=== PATIENT | male | born 1945 | race Caucasian/White ===

== ENCOUNTER 2017-06-15 17:29 | Observation (INO) ==
[2017-06-15 17:58] LABS: Bilirubin,Urine Negative (Negative); Blood,Urine Moderate (Negative); Clarity,Urine Clear (Clear); Glucose,Urine (UA) Normal (Normal); Ketones,Urine Negative (Negative); Leukocyte Esterase,Urine Small (Negative); Nitrite,Urine Negative (Negative); Protein,Urine 100 mg/dL (Neg-Trace); Specific Gravity,Urine 1.015 (1.010-1.025); Urobilinogen,Urine Normal (Normal)
[2017-06-15 18:01] LABS: Color,Urine Dark Yellow (Yellow)
--- NOTE | 2017-06-15 18:20 | Emergency Department Note ---
Disposition Clinical Impression: Urinary tract infection Disposition: Admitted As Inpatient Condition: Fair Time of Disposition: 19:26 ([facility]) Male Urogenital HPI - General Chief complaint: ED Urogenital-Male Stated complaint: trouble with urination, dribbling Time Seen by Provider: 06/15/17 17:45 Source: patient Mode of arrival: ambulatory Limitations: no limitations Nursing Notes Reviewed: Yes Vital Signs Reviewed: Yes - History of Present Illness HPI Narrative: 72-year-old male presents to the emergency room had seen his family physician who told him that he has trouble urinating was due to his weight patient states that he has had increased swelling in his legs he has recently been diagnosed with infection in his foot with possible osteomyelitis in the foot patient who presents to the ER he had been currently been treated for antibodies but apparently ended up with C. difficile is family doctor told him not to go the ER patient that was uncomfortable came to the ER states this weakness tiredness having trouble urinating states he 3 days ago was split streaming now he is down to just dribbles he denies fever chills lightheadedness dizziness just states he feels lousy cannot explain to what is going on patient presents here to the ER at this time Pt Subjective Complaint: other (Suprapubic pain) Onset (ago): day(s) Duration: constant, gradually worsening Radiation: abdomen Severity: severe Severity scale (1-10): 10 Quality: aching Improves with: none Worsens with: urination, movement Reports: urinary retention, dysuria, fever (?), incontinence. Denies: hematuria - Related Data Home Medications Medication Instructions Recorded Confirmed Allopurinol [Zyloprim] 300 mg PO DAILY 06/10/15 06/15/17 Cholecalciferol (Vitamin D3) 2,000 unit PO DAILY 06/10/15 06/15/17 [Vitamin D] GlipiZIDE [Glucotrol] 2.5 mg PO BID 06/10/15 06/15/17 Lovastatin [Mevacor] 20 mg PO DAILY 06/10/15 06/15/17 Warfarin [Coumadin] 2.5 mg PO DAILY 06/10/15 06/15/17 Clopidogrel [Plavix] 75 mg PO DAILY 06/16/15 06/15/17 Carvedilol [Coreg] 25 mg PO DAILY 01/03/16 06/15/17 Insulin Aspart Prot/Insuln Asp 50 unit SQ BID 01/30/17 06/15/17 [Novolog Mix 70-30 Vial] Furosemide [Lasix] 40 mg PO DAILY 06/15/17 06/15/17 Lactobacillus [Culturelle] 1 each PO DAILY 06/15/17 06/15/17 Tamsulosin [Flomax] 0.4 mg PO DAILY 06/15/17 06/15/17 Allergies Allergy/AdvReac Type Severity Reaction Status Date / Time ciprofloxacin [From Cipro] Allergy Itching Verified 06/15/17 17:30 All systems ED: reviewed and negative except as stated. Review of Systems: As Per HPI Constitutional: Reports: fever, chills, weakness Eyes: Denies: eye pain, eye discharge ENT ED: Denies: ear pain, throat pain Cardiovascular: Denies: chest pain, palpitations Respiratory: Denies: cough, dyspnea, wheezes Gastrointestinal: Reports: abdominal pain, nausea. Denies: vomiting Genitourinary: Reports: urgency, dysuria, frequency, hematuria Musculoskeletal: Denies: back pain, neck pain Integumentary: Denies: rash, abrasion Neurological: Denies: headache Psychiatric: Denies: anxiety Endocrine: Denies: fatigue Hematological/Lymphatic: Denies: easy bleeding Allergic/Immunologic: Denies: facial swelling Past Medical History - Past Medical History Attestation: Yes The following information was validated with the patient. Source: patient, old records reviewed, obtained from family, nursing notes reviewed Medical history: Reports: diabetes, hyperlipidemia, hypertension, myocardial infarction, other Psychiatric history: Reports: depression - Social History Smoking Status: Former smoker Smokeless Tobacco Status: No Alcohol use: Reports: none Drug use: Reports: none Physical Exam - General Limitations: no limitations General appearance: alert, in no apparent distress, anxious, obese - Head Head exam: atraumatic, normocephalic, normal inspection - Eye Eye exam: Present: normal appearance, PERRL, EOMI - ENT ENT exam: normal exam, normal oropharynx, mucous membranes moist, normal external ear exam - Neck Neck exam: Present: normal inspection, full ROM, trachea midline - Chest Chest inspection: Present: normal inspection, symmetric chest wall rise - Respiratory Respiratory exam: Present: normal lung sounds bilaterally - Cardiovascular Cardiovascular exam: Present: regular rate, normal rhythm, normal heart sounds - Abdominal Exam Abdominal Exam: Present: soft, tenderness, normal bowel sounds. Absent: mass, pulsatile mass Abdominal Tenderness: Present: suprapubic, moderate - Extremities Exam Extremities exam: Present: normal inspection, full ROM - Expanded Upper Extremity Exam Shoulder exam: Present: normal inspection, full ROM Arm exam: Present: normal inspection, full ROM Elbow exam: Present: normal inspection, full ROM Forearm/Wrist exam: Present: normal inspection, full ROM Hand exam: Present: normal inspection, full ROM Neurosensory exam: Normal: radial nerve, ulnar nerve, median nerve Vascular exam: Normal: capillary refill, radial pulse, ulnar pulse - Expanded Lower Extremity Exam Hip/Pelvis exam: Present: normal inspection, full ROM Upper leg exam: Present: normal inspection, full ROM Knee exam: Present: normal inspection, full ROM Lower leg exam: Present: normal inspection, full ROM, other (Hemosiderin staining bilateral lower extremities antigen dressing noted on the left foot and ankle for a infected toe) Ankle exam: Present: normal inspection, full ROM Foot/toe exam: Present: normal inspection, full ROM Neurovascular/Tendon exam: Present: normal capillary refill, normal fine/light touch Gait: observed and normal - Neurological Exam Neurological exam: Present: alert, oriented X3, CN II-XII intact - Psychiatric Psychiatric exam: Present: normal affect, normal mood - Skin Skin exam: Present: warm, dry, intact, normal color Course Course Narrative: -year-old male who presents to the emergency room had been seen by the family physician appears to be in some discomfort patient was given a bladder scan which showed that there was minimal resident do present within the bladder Arce catheter was placed initially by nursing staff as some difficulty urinating around the catheter but I was able to slip a 16-gauge Arce catheter into the bladder with minimal difficulty hematuric urine came back still did have some bladder spasms he was given morphine and Zofran for pain based though on the findings of the labs it appeared that he was meeting criteria for sepsis as a result he was given fluid boluses which did show he had improvement of his fluid status with tachycardia improving blood pressure and respiratory rate remaining stable heart lungs heart was very improved to regular rate lungs were clear without rales or rhonchi A gradient brisk cap refill peripheral pulses were strong and the skin color had remained stable as result I spoke with Dr. Lam he has agreed for admission patient transferred to [facility] stable Vital Signs Temperature 100.1 F H 06/15/17 17:36 Pulse Rate 90 06/15/17 17:36 Respiratory Rate 18 06/15/17 17:36 Blood Pressure 142/90 06/15/17 17:36 O2 Sat by Pulse Oximetry 96 06/15/17 17:36 Temperature 98.9 F 06/15/17 20:44 Pulse Rate 90 06/15/17 20:04 Respiratory Rate 20 06/15/17 20:44 Blood Pressure 150/74 06/15/17 20:44 O2 Sat by Pulse Oximetry 93 06/15/17 20:04 Oxygen Delivery Oxygen Delivery Room Air Urogenital-Male - Differential Diagnosis Likely: urinary tract infection - Lab Data Result diagrams: 06/15/17 18:33 06/15/17 18:33 Lab Results 06/15/17 06/15/17 06/15/17 Range/Units 17:45 18:33 18:33 WBC 19.0 H (4.3-11.1) K/mcL RBC 5.43 (4.19-5.50) M/mcL Hgb 17.0 H (12.9-16.9) g/dL Hct 50.1 (37.5-50.1) % MCV 92.3 (83.0-100.0) fL MCH 31.3 (28.0-33.3) pg MCHC 33.9 (31.6-35.5) g/dL RDW 15.9 H (11.5-14.5) % Plt Count 209 (140-400) K/mcL MPV 10.1 (9.4-12.4) fL Immature Gran % 0.9 (0-4) % Seg Neutrophils % 79.4 % Lymphocytes % 12.4 % Monocytes % 6.7 % Eosinophils % 0.2 % Basophils % 0.4 % Neutrophils # 15.1 H (1.6-8.9) K/mcL Lymphocytes # 2.4 (0.6-4.6) K/mcL Monocytes # 1.3 (0.0-1.3) K/mcL Eosinophils # 0.0 (0.0-0.6) K/mcL Basophils # 0.1 (0.0-0.2) K/mcL Sodium 135 L (136-145) mEq/L Potassium 4.7 H (3.5-4.5) mEq/L Chloride 105 (98-109) mEq/L Carbon Dioxide 23 (19-29) mEq/L BUN 30 H (8-26) mg/dL Creatinine 1.73 H (0.72-1.25) mg/dL Est GFR ( Amer) 48 L (> 60) Est GFR (Non-Af Amer) 39 L (> 60) BUN/Creatinine Ratio 17 (6-26) Glucose 121 H (70-99) mg/dL Calculated Osmolality 287 (280-300) Lactic Acid (0.5-2.2) mmol/L Calcium 9.1 (8.6-10.8) mg/dL Urine Color Dark Yellow (Yellow) Urine Clarity Clear (Clear) Urine pH 7.0 (5.0-8.0) pH Units Ur Specific [place] 1.015 (1.010-1.025) Urine Protein 100 H (Neg-Trace) mg/dL Urine Glucose (UA) Normal (Normal) mg/dL Urine Ketones Negative (Negative) mg/dL Urine Blood Moderate H (Negative) Urine Nitrite Negative (Negative) Urine Bilirubin Negative (Negative) Urine Urobilinogen Normal (Normal) mg/dL Ur Leukocyte Esterase Small H (Negative) Urine Microscopic RBC 5-15 H (0-3) per hpf Urine Microscopic WBC 15-30 H (0-3) per hpf Ur Squamous Epith Cells Few (None-Few) per lpf Urine Bacteria Few (None-Few) per hpf Ur Culture Indicated? YES A (NO) 06/15/17 Range/Units 19:48 WBC (4.3-11.1) K/mcL RBC (4.19-5.50) M/mcL Hgb (12.9-16.9) g/dL Hct (37.5-50.1) % MCV (83.0-100.0) fL MCH (28.0-33.3) pg MCHC (31.6-35.5) g/dL RDW (11.5-14.5) % Plt Count (140-400) K/mcL MPV (9.4-12.4) fL Immature Gran % (0-4) % Seg Neutrophils % % Lymphocytes % % Monocytes % % Eosinophils % % Basophils % % Neutrophils # (1.6-8.9) K/mcL Lymphocytes # (0.6-4.6) K/mcL Monocytes # (0.0-1.3) K/mcL Eosinophils # (0.0-0.6) K/mcL Basophils # (0.0-0.2) K/mcL Sodium (136-145) mEq/L Potassium (3.5-4.5) mEq/L Chloride (98-109) mEq/L Carbon Dioxide (19-29) mEq/L BUN (8-26) mg/dL Creatinine (0.72-1.25) mg/dL Est GFR ( Amer) (> 60) Est GFR (Non-Af Amer) (> 60) BUN/Creatinine Ratio (6-26) Glucose (70-99) mg/dL Calculated Osmolality (280-300) Lactic Acid 1.3 (0.5-2.2) mmol/L Calcium (8.6-10.8) mg/dL Urine Color (Yellow) Urine Clarity (Clear) Urine pH (5.0-8.0) pH Units Ur Specific [place] (1.010-1.025) Urine Protein (Neg-Trace) mg/dL Urine Glucose (UA) (Normal) mg/dL Urine Ketones (Negative) mg/dL Urine Blood (Negative) Urine Nitrite (Negative) Urine Bilirubin (Negative) Urine Urobilinogen (Normal) mg/dL Ur Leukocyte Esterase (Negative) Urine Microscopic RBC (0-3) per hpf Urine Microscopic WBC (0-3) per hpf Ur Squamous Epith Cells (None-Few) per lpf Urine Bacteria (None-Few) per hpf Ur Culture Indicated? (NO) Critical Care Time Critical Care Time: Yes Total Critical Care Time: 35 Attestation: Critical care performed: 35 minutes patient presents with signs and symptoms of sepsis with tachycardia and hypotension worsening of renal function laboratory data shows leukocytosis he is at risk for C. difficile has a recent antibiotics recent infection as result patient will be admitted transferred services Dr. Genaro Li patient will receive oxide 4000 Ml of fluid he will be monitored closely and make sure that he does not have fluid overload Post first liter of fluid patient started showing improvement of his color heart rate improving slowing down blood pressures remained stable patient has strong pulses lungs and heart are still clear to all station regular rate and rhythm capillary refills brisk no loss of peripheral pulses bilaterally symmetrical [place] in the upper extremity is slight weakness in the lower extremities but this is unchanged from prior due to history of vascular disease skin exam is unchanged the patient is not diaphoretic Time is exclusive of separately billable procedures. Time includes: direct patient care, patient reassessment, coordination of patient care, interpretation of data (laboratory data, radiology data, and respiratory data), review of patient's medical records, medical consultation and documentation of patient care. Procedures included in critical care time: Procedures excluded from critical care time:
[2017-06-15 18:22] LABS: Bacteria,Urine Few per hpf (None-Few); Squamous Epithelial Cell,Urine Few per lpf (None-Few); WBC,Urine 15-30 per hpf (0-3)
[2017-06-15 18:41] LABS: Basophils # 0.1 K/mcL (0.0-0.2); Basophils % 0.4 %; Eosinophils % 0.2 %; Hematocrit 50.1 % (37.5-50.1); Immature Granulocytes % 0.9 % (0-4); Lymphocytes # 2.4 K/mcL (0.6-4.6); Lymphocytes % 12.4 %; Mean Corpuscular HGB Conc 33.9 g/dL (31.6-35.5); Mean Corpuscular Hemoglobin 31.3 pg (28.0-33.3); Mean Corpuscular Volume 92.3 fL (83.0-100.0); Mean Platelet Volume 10.1 fL (9.4-12.4); Monocytes # 1.3 K/mcL (0.0-1.3); Monocytes % 6.7 %; Neutrophils # 15.1 K/mcL (1.6-8.9); Platelet Count 209 K/mcL (140-400); Red Blood Count 5.43 M/mcL (4.19-5.50); Red Cell Distribution Width 15.9 % (11.5-14.5); Segmented Neutrophils % 79.4 %
[2017-06-15 18:55] LABS: Calcium 9.1 mg/dL (8.6-10.8); Potassium 4.7 mEq/L (3.5-4.5)
[2017-06-15] MEDS ORDERED: 0.9 % Sodium Chloride 1,000 ML IVC ONE (18:56)
[2017-06-15] MEDS ORDERED: GENTAMICIN IVPB ONE ×2 (18:56→21:30)
[2017-06-15] MEDS ORDERED: SODIUM CHLORIDE 0.9% IVPB ONE (18:56)
[2017-06-15] MEDS ORDERED: MetroNIDAZOLE 500 MG/100 ML 500 MG/100 ML BAG IVPB ONE ×2 (19:09→21:30)
[2017-06-15] MEDS ORDERED: Ondansetron 4 MG/2 ML VIAL IVP ONE (19:26)
[2017-06-15] MEDS ORDERED: *HR* Morphine 2 MG/ML SYRINGE IVP ONE (19:26)
[2017-06-15] MEDS ORDERED: Aminoglycoside Consult 1 EACH MC ONE (20:37)
[2017-06-15] MEDS ORDERED: D5% in Water 1,000 ML IVC PRN (21:30)
[2017-06-15] MEDS ORDERED: INSULIN ASPART PROT SQ SCH (21:30)
[2017-06-15] MEDS ORDERED: Naloxone 0.4 MG/ML INJ IVP PRN (21:30)
[2017-06-15] MEDS ORDERED: Gentamicin 500 MG in 0.9 % Sodium Chloride 100 ML IVPB SCH (21:30)
[2017-06-15] MEDS ORDERED: *HR* Dextrose 50 % in Water (Syg) 50 ML SYRINGE IVP PRN (21:30)
[2017-06-15] MEDS ORDERED: INSULN ASP SQ SCH (21:30)
[2017-06-15] MEDS ORDERED: Dextrose Gel 15 GM PO PRN ×2 (21:30)
[2017-06-15 21:43] LABS: Activated Partial Thrombo Time 36.1 Seconds (26.0-36.0)
[2017-06-16] MEDS: *HR* GlipiZIDE 5 MG TABLET PO SCH ×3 (00:20→20:18)
[2017-06-16] MEDS: Gentamicin 100 MG in 0.9 % Sodium Chloride 100 ML IVPB SCH ×2 (03:18→20:11)
[2017-06-16 06:17] LABS: Basophils # 0.1 K/mcL (0.0-0.2); Basophils % 0.2 %; Hematocrit 47.2 % (37.5-50.1); Hemoglobin 15.8 g/dL (12.9-16.9); Immature Granulocytes % 0.6 % (0-4); Lymphocytes # 2.6 K/mcL (0.6-4.6); Lymphocytes % 11.2 %; Mean Corpuscular HGB Conc 33.5 g/dL (31.6-35.5); Mean Corpuscular Volume 95.7 fL (83.0-100.0); Mean Platelet Volume 10.3 fL (9.4-12.4); Monocytes # 1.9 K/mcL (0.0-1.3); Neutrophils # 18.7 K/mcL (1.6-8.9); Platelet Count 197 K/mcL (140-400); Red Blood Count 4.93 M/mcL (4.19-5.50); Red Cell Distribution Width 16.1 % (11.5-14.5)
[2017-06-16 06:44] LABS: Albumin 2.9 g/dL (3.5-5.0); Albumin/Globulin Ratio 0.6 (1.1-2.2); Bilirubin,Direct 0.6 mg/dL (0.0-0.5); Bilirubin,Indirect 1.1 mg/dL (0.0-1.2); Bilirubin,Total 1.7 mg/dL (0.2-1.2); Calcium 8.7 mg/dL (8.6-10.8); Globulin 4.6 g/dL (2.4-3.5); Total Protein 7.5 g/dL (6.0-8.3)
[2017-06-16] MEDS ORDERED: Aminoglycoside Consult 1 EACH MC ONE (08:00)
[2017-06-16] MEDS: Insulin LISPRO 300 UNITS/3 ML VIAL SQ SCH ×3 (08:04→16:33)
[2017-06-16] MEDS ORDERED: Gentamicin 380 MG in 0.9 % Sodium Chloride 100 ML IVPB SCH (09:00)
[2017-06-16] MEDS: Lactobacillus 1 EACH CAP.SPRINK PO SCH (10:15)
[2017-06-16] MEDS: Insulin NPH/REG 70/30 100 UNIT/ML (x5UNIT) SQ SCH ×2 (10:18→16:35)
[2017-06-16] MEDS: Cholecalciferol (D-3) 1,000 UNIT TABLET PO SCH (10:20)
[2017-06-16] MEDS: Furosemide 40 MG TABLET PO SCH (10:21)
[2017-06-16] MEDS ORDERED: Gabapentin 100 MG CAPSULE PO SCH (14:00)
--- NOTE | 2017-06-16 14:15 | Internal Med History&Physical ---
Date of Encounter: 06/16/17 Time of Encounter: 09:15 Assessment and Plan (1) Blood per rectum Current visit: Yes Status: Acute No significant active bleeding apparent at present. He has not noted blood in stool but saw red blood in his underwear. Will continue with Coumadin and monitor CBC. (2) CKD (chronic kidney disease) stage 3, GFR 30-59 ml/min Current visit: Yes Status: Chronic We will monitor renal indices as needed. (3) Right foot ulcer Current visit: Yes Status: Acute Will order CT to further evaluate for osteomyelitis or abscess. We will treat with IV Zosyn and doxycycline. Qualifiers: Non-pressure ulcer stage: with fat layer exposed Qualified Code(s): L97.512 - Non-pressure chronic ulcer of other part of right foot with fat layer exposed (4) DM type 2 (diabetes mellitus, type 2) Current visit: Yes Status: Acute Continue Glucotrol and insulin 70/30. Do Accu-Cheks with SSI. Qualifiers: Diabetes mellitus complication status: with kidney complications Diabetes mellitus complication detail: with chronic kidney disease Diabetes mellitus senior care insulin use: with senior care use Chronic kidney disease stage: stage 3 (moderate) Qualified Code(s): E11.22 - Type 2 diabetes mellitus with diabetic chronic kidney disease; N18.3 - Chronic kidney disease, stage 3 ( moderate); N18.3 - Chronic kidney disease, stage 3 (moderate); Z79.4 - intermediate accountant (current) use of insulin; Z79.4 - assisted (current) use of insulin; Z79.4 - intermediate accountant (current) use of insulin; Z79.4 - assisted (current) use of insulin (5) Urinary tract infection Current visit: Yes Status: Acute Urine culture ordered. Will treat with Zosyn instead of Rocephin to lessen diarrhea. Qualifiers: Urinary tract infection type: site unspecified Hematuria presence: with hematuria Qualified Code(s): N39.0 - Urinary tract infection, site not specified; R31.9 - Hematuria, unspecified; R31.9 - Hematuria, unspecified (6) BPH (benign prostatic hyperplasia) Current visit: Yes Status: Chronic We will increase Flomax and start Proscar. Qualifiers: Lower urinary tract symptom presence: symptoms present Lower urinary tract symptom detail: urinary frequency Qualified Code(s): N40.1 - Benign prostatic hyperplasia with lower urinary tract symptoms; R35.0 - Frequency of micturition ; R35.0 - Frequency of micturition Internal Medicine - H&P: HPI Chief complaint: Urinary frequency, possible hematochezia Admitted From: Home Plans for Post Hospital Care: Home History of present illness: Mr. Green is a 72 year old male who came to emergency room after he developed urinary frequency with pain and small amount of bright red blood from his rectal area on June 14. When he did not improve spontaneously he decided to come to emergency room the afternoon of June 15. Evaluation showed leukocytosis with left shift on differential. There was evidence of UTI on the urinalysis. He was admitted to [facility] floor for ongoing care needs. His history is significant for BPH and he is on Flomax. He had cystoscopy approximately 2011 without intervention. He does not have known prostate malignancy. He has had hematuria in the past. He has chronic kidney disease stage III and follows with a [facility] behavioral health case manager. GI history is pertinent for C. difficile infection December 2016 following clindamycin use for foot infection. He denies disorders of his liver gallbladder or exocrine pancreas. Past Med Surg Social Fam HX - Past Medical History Medical history: diabetes, hyperlipidemia, hypertension, myocardial infarction, other Psychiatric history: depression - Social History Smoking Status: Former smoker Smokeless Tobacco Status: No Alcohol use: none Drug use: none Internal Medicine - H&P: Meds Allopurinol [Zyloprim] 300 mg PO DAILY 06/10/15 [History] Cholecalciferol (Vitamin D3) [Vitamin D] 2,000 unit PO DAILY 06/10/15 [History] GlipiZIDE [Glucotrol] 2.5 mg PO BID 06/10/15 [History] Lovastatin [Mevacor] 20 mg PO DAILY 06/10/15 [History] Warfarin [Coumadin] 2.5 mg PO DAILY 06/10/15 [History] Clopidogrel [Plavix] 75 mg PO DAILY 06/16/15 [History] Carvedilol [Coreg] 25 mg PO DAILY 01/03/16 [History] Insulin Aspart Prot/Insuln Asp [Novolog Mix 70-30 Vial] 50 unit SQ BID 01/30/17 [History] Furosemide [Lasix] 40 mg PO DAILY 06/15/17 [History] Lactobacillus [Culturelle] 1 each PO DAILY 06/15/17 [History] Tamsulosin [Flomax] 0.4 mg PO DAILY 06/15/17 [History] 3 Allergy/AdvReac Type Severity Reaction Status Date / Time ciprofloxacin [From Cipro] Allergy Itching Verified 06/15/17 17:30 All Systems PM: A 10-system review of systems was performed and is negative for pertinent findings except as documented above in the HPI. Review of systems: Gen.: His weight has been stable the past few months Cardiovascular: He has hypertension and atrial fibrillation. He has had DVT in the past but no pulmonary embolism. He is on Coumadin for the history of DVT and atrial fibrillation. He claims had a NE 2015 followed by 2 stents placed. He had an echocardiogram 02/07/2017 which showed LVEF of 55%. There was indeterminate LV diastolic function because of atrial fibrillation. There was mild TR and biatrial enlargement. A Regadenoson stress test 05/31/2017 showed LVEF of 54% with perfusion imaging negative for ischemia or infarct. Respiratory: He states he "chewed cigars" in the past but did not smoke cigarettes. He thinks he has a diagnosis of asthma and had PFTs over 5 years ago. He does not use home oxygen. GI: As per history of present illness : As per history of present illness Neurologic: He denies large distribution strokes or seizures. Endocrine: He was diagnosed with DM 2 approximately 2012. He has hyperlipidemia but no known thyroid disease. Hematology/oncology: He has been diagnosed with polycythemia and follows with a digital strategist senior manager/oncologist at [facility]. He denies internal malignancies or other blood disorders Psychiatric: He has history of depression but no significant anxiety other mental health issues [place] skeletal: He has diagnoses of gout. He had a bone scan few days ago with abnormality questionable osteomyelitis in the right foot. He has had left total hip replacement and back surgery. - Constitutional Vitals: Temp Pulse Resp BP Pulse Ox 98.1 F 85 20 107/67 95 06/16/17 13:37 06/16/17 13:37 06/16/17 13:37 06/16/17 13:37 06/16/17 13:37 Exam: Gen.: He is a well-developed well-nourished male who appears in mild distress at present time. HEENT: Head is atraumatic and normocephalic. Eyes: EOMI. There is no scleral icterus. Mouth: Mucosa is moist. Neck: Supple and nontender. There is no thyromegaly or adenopathy noted. Heart: Regular without murmurs gallops or ectopics Lungs: No wheezes or crackles are heard. Abdomen: Soft and nontender. No masses or guarding noted. Extremities: He has trace pitting edema of the lower anterior shins bilaterally. Dorsalis pedis and posttibial pulses are trace palpable bilaterally. He has an open ~ 10 mm ulcer on the plantar surface of the right first metatarsal pressure point with minimal drainage from the wound. There is no lymphangitic streaking. The left great toe has a bandage in place which I did not unwrap. The patient reports there was a previous pressure sore there but it has healed. Neurologic: Mental status: He is talkative and a good historian. Cranial nerves : Smile is symmetric. Forehead wrinkles bilaterally. Tongue protrudes midline. EOMI. He is slightly hard of hearing. Motor: There is no pronator drift. Cerebellar: Finger to nose is intact bilaterally. Skin: Warm and dry. He has foot ulcers as described above. Internal Med - H&P Results - Labs CBC & Chem 7: 06/16/17 06:00 06/16/17 06:00 Labs: Short CBC 06/16/17 Range/Units 06:00 WBC 23.4 H (4.3-11.1) K/mcL Hgb 15.8 (12.9-16.9) g/dL Hct 47.2 (37.5-50.1) % Plt Count 197 (140-400) K/mcL Neutrophils # 18.7 H (1.6-8.9) K/mcL BMP 06/16/17 06:00 Sodium 135 L Potassium 5.0 H Chloride 102 Carbon Dioxide 23 BUN 33 H Creatinine 1.87 H Glucose 165 H Calcium 8.7 Liver Function 06/16/17 Range/Units 06:00 Total Bilirubin 1.7 H (0.2-1.2) mg/dL Direct Bilirubin 0.6 H (0.0-0.5) mg/dL AST 18 (5-34) Units/L ALT 16 (0-55) Units/L Alkaline Phosphatase 77 (38-126) Units/L Albumin 2.9 L (3.5-5.0) g/dL - Impressions ITS Impressions Foot CT 06/16/17 09:57 IMPRESSION: Plantar soft tissue ulceration adjacent to the 1st MTP joint and medial sesamoid with adjacent skin thickening and confluent fluid. No definite evidence for osteomyelitis. If there is further concern suggest follow-up MRI imaging. Midfoot and hindfoot osteoarthritis. D/ / 06/16/2017 11:23:06 Anderson Graff MD / ellyn Interpreting Provider: Anderson Graff MD
[2017-06-16] MEDS: *HR* HYDROcodone/Acet 5/325 mg TABLET PO PRN (14:17)
[2017-06-16] MEDS: Finasteride 5 MG TABLET PO SCH (14:35)
[2017-06-16] MEDS: Piperacillin/Tazobactam 3.375 GM in D5% in Water (Mini-Bag+) 100 ML IVPB SCH ×2 (14:37→23:29)
[2017-06-16] MEDS ORDERED: Vancomycin Oral Soln 250 MG/5 ML UDC PO SCH ×2 (15:00→18:00)
[2017-06-16] MEDS: Gentamicin Oint 15 GM TUBE TP SCH (15:44)
[2017-06-16] MEDS ORDERED: *HR* Warfarin 5 MG TABLET PO SCH (18:00)
[2017-06-16] MEDS: Doxycycline 100 MG in 0.9 % Sodium Chloride Mini Bag 100 ML IVPB SCH (18:23)
[2017-06-16] MEDS: 0.9 % Sodium Chloride 1,000 ML IVC SCH (20:08)
[2017-06-16] MEDS: NEOMYCIN OP SCH (20:20)
[2017-06-16] MEDS: MAXITROL OP SCH (20:20)
[2017-06-16] MEDS: POLYMYXIN B OP SCH (20:20)
[2017-06-16] MEDS: DEXAMETHASONE OP SCH (20:20)
[2017-06-17] MEDS: *HR* HYDROcodone/Acet 5/325 mg TABLET PO PRN ×2 (01:01→09:06)
[2017-06-17] MEDS: Doxycycline 100 MG in 0.9 % Sodium Chloride Mini Bag 100 ML IVPB SCH ×2 (05:00→22:25)
[2017-06-17 06:35] LABS: Basophils % 0.2 %; Eosinophils # 0.1 K/mcL (0.0-0.6); Eosinophils % 0.6 %; Hematocrit 44.8 % (37.5-50.1); Hemoglobin 15.1 g/dL (12.9-16.9); Immature Granulocytes % 0.5 % (0-4); Lymphocytes # 2.2 K/mcL (0.6-4.6); Lymphocytes % 12.6 %; Mean Corpuscular HGB Conc 33.7 g/dL (31.6-35.5); Mean Corpuscular Hemoglobin 32.1 pg (28.0-33.3); Mean Corpuscular Volume 95.1 fL (83.0-100.0); Mean Platelet Volume 10.8 fL (9.4-12.4); Monocytes # 1.2 K/mcL (0.0-1.3); Monocytes % 7.1 %; Neutrophils # 13.5 K/mcL (1.6-8.9); Platelet Count 182 K/mcL (140-400); Red Blood Count 4.71 M/mcL (4.19-5.50); Red Cell Distribution Width 15.9 % (11.5-14.5)
[2017-06-17 06:43] LABS: INR 1.7; Prothrombin Time 18.7 Seconds (9.4-12.1)
[2017-06-17 07:05] LABS: Albumin 2.7 g/dL (3.5-5.0); Albumin/Globulin Ratio 0.6 (1.1-2.2); Bilirubin,Total 0.9 mg/dL (0.2-1.2); Calcium 8.9 mg/dL (8.6-10.8); Globulin 4.5 g/dL (2.4-3.5); Potassium 4.4 mEq/L (3.5-4.5); Total Protein 7.2 g/dL (6.0-8.3)
[2017-06-17] MEDS: Piperacillin/Tazobactam 3.375 GM in D5% in Water (Mini-Bag+) 100 ML IVPB SCH ×2 (07:18→15:48)
[2017-06-17] MEDS: Insulin LISPRO 300 UNITS/3 ML VIAL SQ SCH ×3 (07:22→16:26)
[2017-06-17] MEDS: Lactobacillus 1 EACH CAP.SPRINK PO SCH (09:02)
[2017-06-17] MEDS: Insulin NPH/REG 70/30 100 UNIT/ML (x5UNIT) SQ SCH ×2 (09:02→16:26)
[2017-06-17] MEDS: *HR* GlipiZIDE 5 MG TABLET PO SCH ×2 (09:03→23:41)
[2017-06-17] MEDS: Finasteride 5 MG TABLET PO SCH (09:05)
[2017-06-17] MEDS: Furosemide 40 MG TABLET PO SCH (09:06)
[2017-06-17] MEDS: Cholecalciferol (D-3) 1,000 UNIT TABLET PO SCH (09:06)
[2017-06-17] MEDS: MAXITROL OP SCH ×2 (09:08→15:53)
[2017-06-17] MEDS: Gentamicin Oint 15 GM TUBE TP SCH (09:08)
[2017-06-17] MEDS ORDERED: Glycerin RECTAL Suppository RC ONE (10:14)
--- NOTE | 2017-06-17 11:21 | Internal Med Progress Note ---
Date of Encounter: 06/17/17 Time of Encounter: 10:55 - Assessment and plan (1) Blood per rectum Current Visit: Yes Status: Acute Assessment and plan: June 17. Hemoglobin minimally changed. Continue present management. (2) CKD (chronic kidney disease) stage 3, GFR 30-59 ml/min Current Visit: Yes Status: Chronic Assessment and plan: June 17. Will monitor renal indices as needed. (3) Right foot ulcer Current Visit: Yes Status: Acute Assessment and plan: June 17. Foot CT showed no evidence of abscess or osteomyelitis. Family reports he is scheduled to see [facility] tomorrow for possible bone biopsy to rule out osteomyelitis. We will continue with IV Zosyn and doxycycline with lactobacillus for now. Qualifiers: Non-pressure ulcer stage: with fat layer exposed Qualified Code(s): L97.512 - Non-pressure chronic ulcer of other part of right foot with fat layer exposed (4) DM type 2 (diabetes mellitus, type 2) Current Visit: Yes Status: Acute Assessment and plan: June 17. Continue Glucotrol and insulin 70/30 with Accu-Cheks and SSI. Qualifiers: Diabetes mellitus complication status: with kidney complications Diabetes mellitus complication detail: with chronic kidney disease Diabetes mellitus fdc insulin use: with fdc use Chronic kidney disease stage: stage 3 (moderate) Qualified Code(s): E11.22 - Type 2 diabetes mellitus with diabetic chronic kidney disease; N18.3 - Chronic kidney disease, stage 3 ( moderate); N18.3 - Chronic kidney disease, stage 3 (moderate); Z79.4 - local intermodal truck driver (current) use of insulin; Z79.4 - local intermodal truck driver (current) use of insulin; Z79.4 - local intermodal truck driver (current) use of insulin; Z79.4 - half-way (current) use of insulin (5) Urinary tract infection Current Visit: Yes Status: Acute Assessment and plan: June 17. Preliminary culture shows Escherichia coli. Continue present antibiotics. Qualifiers: Urinary tract infection type: site unspecified Hematuria presence: with hematuria Qualified Code(s): N39.0 - Urinary tract infection, site not specified; R31.9 - Hematuria, unspecified; R31.9 - Hematuria, unspecified (6) BPH (benign prostatic hyperplasia) Current Visit: Yes Status: Chronic Assessment and plan: June 17. Continue Flomax and Proscar. Qualifiers: Lower urinary tract symptom presence: symptoms present Lower urinary tract symptom detail: urinary frequency Qualified Code(s): N40.1 - Benign prostatic hyperplasia with lower urinary tract symptoms; R35.0 - Frequency of micturition ; R35.0 - Frequency of micturition - Subjective Interval history: June 17. He has no new complaints. His Arce catheter has been discontinued. He reported to the nurse he had rectal pain but declined a glycerin with lidocaine suppository. - Constitutional Vitals: Temp Pulse Resp BP Pulse Ox 97.7 F 93 20 129/84 92 06/17/17 08:58 06/17/17 08:58 06/17/17 08:58 06/17/17 08:58 06/17/17 08:58 Exam: He is resting comfortably in bed and appears in no acute distress. His affect is cheerful. I reviewed his medications, lab results, and foot CT report. Internal Medicine: Result - Labs CBC & Chem 7: 06/17/17 04:40 06/17/17 04:40 Labs: Short CBC 06/17/17 Range/Units 04:40 WBC 17.1 H (4.3-11.1) K/mcL Hgb 15.1 (12.9-16.9) g/dL Hct 44.8 (37.5-50.1) % Plt Count 182 (140-400) K/mcL Neutrophils # 13.5 H (1.6-8.9) K/mcL BMP 06/17/17 04:40 Sodium 138 Potassium 4.4 Chloride 103 Carbon Dioxide 25 BUN 38 H Creatinine 1.97 H Glucose 112 H Calcium 8.9 Liver Function 06/17/17 Range/Units 04:40 Total Bilirubin 0.9 (0.2-1.2) mg/dL AST 13 (5-34) Units/L ALT 13 (0-55) Units/L Alkaline Phosphatase 86 (38-126) Units/L Albumin 2.7 L (3.5-5.0) g/dL - ABG Interpretation ABG results: PT/INR, D-dimer PT 18.7 Seconds (9.4-12.1) H 06/17/17 04:40 - Impressions Impressions Foot CT 06/16/17 09:57 IMPRESSION: Plantar soft tissue ulceration adjacent to the 1st MTP joint and medial sesamoid with adjacent skin thickening and confluent fluid. No definite evidence for osteomyelitis. If there is further concern suggest follow-up MRI imaging. Midfoot and hindfoot osteoarthritis. D/ / 06/16/2017 11:23:06 Anderson Graff MD / ellyn Interpreting Provider: Anderson Graff MD Consult Discharge Plan - Plan Referrals: Leeroy Nassar DO [Primary Care Provider] -
[2017-06-17] MEDS ORDERED: Furosemide 40 MG TABLET PO SCH (11:29)
[2017-06-17] MEDS: DEXAMETHASONE OP SCH ×2 (15:53→23:42)
[2017-06-17] MEDS: NEOMYCIN OP SCH ×2 (15:53→23:42)
[2017-06-17] MEDS: POLYMYXIN B OP SCH ×2 (15:53→23:42)
[2017-06-17] MEDS ORDERED: *HR* Warfarin 3 MG TABLET PO SCH (18:00)
[2017-06-18] MEDS: Piperacillin/Tazobactam 3.375 GM in D5% in Water (Mini-Bag+) 100 ML IVPB SCH (01:28)
[2017-06-18 05:45] LABS: Basophils % 0.3 %; Eosinophils # 0.2 K/mcL (0.0-0.6); Eosinophils % 1.8 %; Hematocrit 46.7 % (37.5-50.1); Hemoglobin 15.5 g/dL (12.9-16.9); Immature Granulocytes % 0.4 % (0-4); Lymphocytes # 1.7 K/mcL (0.6-4.6); Lymphocytes % 13.3 %; Mean Corpuscular HGB Conc 33.2 g/dL (31.6-35.5); Mean Corpuscular Hemoglobin 31.8 pg (28.0-33.3); Mean Corpuscular Volume 95.7 fL (83.0-100.0); Mean Platelet Volume 10.5 fL (9.4-12.4); Monocytes # 0.9 K/mcL (0.0-1.3); Monocytes % 7.4 %; Neutrophils # 9.6 K/mcL (1.6-8.9); Platelet Count 214 K/mcL (140-400); Red Blood Count 4.88 M/mcL (4.19-5.50); Red Cell Distribution Width 15.7 % (11.5-14.5); Segmented Neutrophils % 76.8 %
[2017-06-18 05:47] LABS: INR 1.7; Prothrombin Time 18.3 Seconds (9.4-12.1)
[2017-06-18 07:16] VITALS: BP 125/83
[2017-06-18] MEDS: MAXITROL OP SCH ×2 (08:43→10:02)
[2017-06-18] MEDS: Insulin LISPRO 300 UNITS/3 ML VIAL SQ SCH (08:44)
[2017-06-18] MEDS ORDERED: Doxycycline 100 MG in 0.9 % Sodium Chloride Mini Bag 100 ML IVPB SCH (09:00)
[2017-06-18] MEDS: Lactobacillus 1 EACH CAP.SPRINK PO SCH (09:17)
[2017-06-18] MEDS: Cholecalciferol (D-3) 1,000 UNIT TABLET PO SCH (09:18)
[2017-06-18] MEDS: Finasteride 5 MG TABLET PO SCH (09:18)
[2017-06-18] MEDS: Insulin NPH/REG 70/30 100 UNIT/ML (x5UNIT) SQ SCH (09:21)
[2017-06-18] MEDS: *HR* GlipiZIDE 5 MG TABLET PO SCH (09:27)
--- NOTE | 2017-06-18 09:53 | Discharge Summary ---
Date of Encounter: 06/18/17 Time of Encounter: 09:40 - Discharge Diagnosis (1) Blood per rectum Priority: Primary Status: Acute (2) CKD (chronic kidney disease) stage 3, GFR 30-59 ml/min Priority: Secondary Status: Chronic (3) Right foot ulcer Priority: Secondary Status: Chronic Qualifiers: Non-pressure ulcer stage: with fat layer exposed Qualified Code(s): L97.512 - Non-pressure chronic ulcer of other part of right foot with fat layer exposed (4) DM type 2 (diabetes mellitus, type 2) Priority: Secondary Status: Chronic Qualifiers: Diabetes mellitus complication status: with kidney complications Diabetes mellitus complication detail: with chronic kidney disease Diabetes mellitus care home insulin use: with care home use Chronic kidney disease stage: stage 3 (moderate) Qualified Code(s): E11.22 - Type 2 diabetes mellitus with diabetic chronic kidney disease; N18.3 - Chronic kidney disease, stage 3 ( moderate); N18.3 - Chronic kidney disease, stage 3 (moderate); Z79.4 - intermediate frame tender (current) use of insulin; Z79.4 - intermediate frame tender (current) use of insulin; Z79.4 - intermediate frame tender (current) use of insulin; Z79.4 - intermediate frame tender (current) use of insulin (5) Urinary tract infection Priority: Secondary Status: Acute Qualifiers: Urinary tract infection type: site unspecified Hematuria presence: with hematuria Qualified Code(s): N39.0 - Urinary tract infection, site not specified; R31.9 - Hematuria, unspecified; R31.9 - Hematuria, unspecified (6) BPH (benign prostatic hyperplasia) Priority: Secondary Status: Chronic Qualifiers: Lower urinary tract symptom presence: symptoms present Lower urinary tract symptom detail: urinary frequency Qualified Code(s): N40.1 - Benign prostatic hyperplasia with lower urinary tract symptoms; R35.0 - Frequency of micturition ; R35.0 - Frequency of micturition - Discharge Medications Prescriptions: Amoxicillin/Clavulanate [Augmentin] 875 mg PO BIDWM #10 tablet Finasteride [Proscar] 5 mg PO DAILY #30 tablet Lactobacillus [Culturelle] 1 each PO BID #10 cap.sprink Tamsulosin [Flomax] 0.8 mg PO DAILY #60 capsule Home Medications: Allopurinol [Zyloprim] 300 mg PO DAILY 06/10/15 [History] Cholecalciferol (Vitamin D3) [Vitamin D3] 2,000 unit PO DAILY 06/10/15 [History] GlipiZIDE [Glucotrol] 2.5 mg PO BID 06/10/15 [History] Lovastatin [Mevacor] 20 mg PO DAILY 06/10/15 [History] Warfarin [Coumadin] 2.5 mg PO DAILY 06/10/15 [History] Clopidogrel [Plavix] 75 mg PO DAILY 06/16/15 [History] Carvedilol [Coreg] 25 mg PO DAILY 01/03/16 [History] Insulin Aspart Prot/Insuln Asp [Novolog Mix 70-30 Vial] 50 unit SQ BID 01/30/17 [History] Lactobacillus [Culturelle] 1 each PO DAILY 06/15/17 [History] Amoxicillin/Clavulanate [Augmentin] 875 mg PO BIDWM #10 tablet 06/18/17 [Rx] Finasteride [Proscar] 5 mg PO DAILY #30 tablet 06/18/17 [Rx] Furosemide [Lasix] 20 mg PO DAILY #0 06/18/17 [Rx] Lactobacillus [Culturelle] 1 each PO BID #10 cap.sprink 06/18/17 [Rx] Tamsulosin [Flomax] 0.8 mg PO DAILY #60 capsule 06/18/17 [Rx] Allergies/Adverse Reactions: 3 Allergy/AdvReac Type Severity Reaction Status Date / Time ciprofloxacin [From Cipro] Allergy Itching Verified 06/15/17 17:30 Procedures/tests Complete & Pending: Procedures Performed prior 72 hours Category Date Time Status CT foot RT wo con [CT] Routine Cat Scan 06/16/17 09:57 Completed Date of admission: 06/15/17 20:36 Primary care physician: Leeroy Nassar DO - Patient Status Disposition: Home, Self-Care Condition: Fair Overall status at discharge: patient is progressing back to baseline - Discharge Instructions Follow Up With: Leeroy Nassar DO [Primary Care Provider] - - Diet and Activity Activity: resume usual activities as tolerated Diet: advance to your usual diet Hospital course: Mr. Green is a 72 year old male who came to emergency room after he developed urinary frequency with pain and small amount of bright red blood from his rectal area on June 14. When he did not improve spontaneously he decided to come to emergency room the afternoon of June 15. Evaluation showed leukocytosis with left shift on differential. There was evidence of UTI on the urinalysis. He was admitted to [facility] floor for ongoing care needs. Initial orders were written by the emergency room physician. I saw him on June 16 and performed history and physical. He had no further significant bleeding per rectum. Hemoglobin remained stable during hospitalization. He can have further workup done for this as an outpatient by direction of his PCP. CT of the foot was done to further evaluate his foot ulcer. There was no evidence of abscess or osteomyelitis seen. He was treated with IV Zosyn and doxycycline during hospitalization. He will follow with [facility] today for possible bone biopsy. Urine culture returned showing Escherichia coli. He will be given Augmentin for 5 additional days with lactobacillus at discharge. His Flomax was increased to 0.8 mg daily he was started on Proscar for BPH symptoms. His Arce catheter that had been inserted on admission was removed and he had satisfactory urination. On June 18 he was stable for discharge home. He will follow with his PCP Dr. Nassar within 1 week. He will follow with [facility] today. - Time Spent with Patient Total time spent providing and/or coordinating discharge services: - Constitutional Vitals: Temp Pulse Resp BP Pulse Ox 97.6 F 77 18 125/83 98 06/18/17 07:15 06/18/17 07:15 06/18/17 07:15 06/18/17 07:15 06/18/17 07:15
[2017-06-18] MEDS: NEOMYCIN OP SCH (10:00)
[2017-06-18] MEDS: DEXAMETHASONE OP SCH (10:00)
[2017-06-18] MEDS: POLYMYXIN B OP SCH (10:00)
[2017-06-18] MEDS: Doxycycline 100 MG in 0.9 % Sodium Chloride Mini Bag 100 ML IVPB SCH (10:54)
== END 2017-06-18 10:57 | disposition home or self-care (01) ==
LOC: EMEROOPIK 17:29 → INPPIK 17:29
PROVIDERS: ADMIT Internal Medicine; ATTEND Internal Medicine

== ENCOUNTER 2019-04-09 09:10 | Observation (INO) ==
[2019-04-09] MEDS ORDERED: 0.9 % Sodium Chloride 1,000 ML IVC ONE (09:31)
[2019-04-09] MEDS ORDERED: Ondansetron 4 MG/2 ML VIAL IVP ONE (09:31)
--- NOTE | 2019-04-09 09:38 | Emergency Department Note ---
Disposition Clinical Impression: Acute kidney injury, Dehydration, Gastroenteritis, Hyponatremia, Elevated troponin Disposition: Admitted As Inpatient Condition: Fair Referrals: Deepali Nguyen CNP [Primary Care Provider] - Forms: ED Satisfaction Letter Time of Disposition: 11:13 Nausea/Vomiting/Diarrhea HPI - General Chief complaint: ED Nausea/Vomiting/Diarrhea Stated complaint: n/v/d that started sunday Time Seen by Provider: 04/09/19 09:30 Source: patient Mode of arrival: private vehicle Limitations: no limitations Nursing Notes Reviewed: Yes Vital Signs Reviewed: Yes - History of Present Illness Pt Subjective Complaint: nausea, vomiting, diarrhea Onset (ago): day(s) (3 days) Description of emesis: other (Dark colored) Description of Diarrhea: water, other (Yellow) Associated Abdominal Pain: Yes If pain, Location of pain: diffuse Severity: mild Quality: cramping Consistency: intermittent Improves with: nothing Worsens with: nonthing Associated symptoms: Reports: cough, fever/chills, shortness of breath - Related Data Home Medications Medication Instructions Recorded Confirmed Cholecalciferol (Vitamin D3) 50,000 unit PO WD 06/10/15 04/09/19 [Vitamin D3] Warfarin [Coumadin] 2.5 mg PO DAILY 06/10/15 04/09/19 Carvedilol [Coreg] 25 mg PO DAILY 01/03/16 04/09/19 Hydrocodone/Acetaminophen 1 each PO Q6H 01/08/18 04/09/19 [Hydrocodon-Acetaminophen 5-325] Furosemide [Lasix] 40 mg PO DAILY 03/01/18 04/09/19 Trazodone HCl 100 mg PO HS 03/01/18 04/09/19 Simvastatin [Zocor] 20 mg PO HS 09/04/18 04/09/19 DULoxetine [Cymbalta] 20 mg PO BID 01/23/19 04/09/19 Insulin Glargine,Hum.rec.anlog 50 unit SQ HS 01/23/19 04/09/19 [Lantus Solostar] Previous Rx's Medication Instructions Recorded Tamsulosin [Flomax] 0.8 mg PO DAILY #60 capsule 06/18/17 Allergies Allergy/AdvReac Type Severity Reaction Status Date / Time ciprofloxacin [From Cipro] Allergy Itching Verified 06/15/17 17:30 meloxicam Allergy See Verified 10/29/18 07:51 Comments clindamycin AdvReac Diarrhea Verified 12/07/17 22:03 colchicine AdvReac Diarrhea Verified 03/01/18 13:58 gabapentin AdvReac Confusion Verified 03/01/18 13:59 bee stings Allergy Swelling Uncoded 10/29/18 07:50 of Lip/Tongue/Throat All systems ED: reviewed and negative except as stated. Constitutional: Reports: fever (Has not documented with a thermometer but feels hot and cold), chills, weakness (Generalized weakness) Eyes: Denies: vision change ENT ED: Reports: congestion. Denies: ear pain, throat pain Cardiovascular: Reports: dyspnea on exertion. Denies: chest pain, palpitations Respiratory: Reports: cough, dyspnea Gastrointestinal: Reports: abdominal pain (Cramping), nausea, vomiting, diarrhea Genitourinary: Reports: frequency Musculoskeletal: Reports: joint swelling (Right great toe MTP joint). Denies: b ack pain Neurological: Denies: headache Past Medical History - Past Medical History Attestation: Yes The following information was validated with the patient. Source: patient, old records reviewed, obtained from family, nursing notes reviewed Medical history: Reports: arthritis, atrial fibrillation, COPD, coronary artery disease, diabetes, hyperlipidemia, hypertension, myocardial infarction, renal disease, other Surgical history: Reports: orthopedic, other, other Psychiatric history: Reports: depression - Social History Smoking Status: Former smoker Smokeless Tobacco Status: No Alcohol use: Reports: none Drug use: Reports: none Physical Exam - General Limitations: no limitations General appearance: alert, in no apparent distress - Head Head exam: atraumatic, normocephalic, normal inspection - Eye Eye exam: Present: normal appearance, PERRL, EOMI. Absent: scleral icterus, conjunctival injection - ENT ENT exam: normal exam, normal oropharynx, mucous membranes moist, normal external ear exam - Neck Neck exam: Present: normal inspection, full ROM, trachea midline - Chest Chest inspection: Present: normal inspection, symmetric chest wall rise. Absent: tenderness - Respiratory Respiratory exam: Present: normal lung sounds bilaterally. Absent: respiratory distress, wheezes - Cardiovascular Cardiovascular exam: Present: regular rate, normal rhythm, normal heart sounds - Abdominal Exam Abdominal exam: Present: soft, Non-Tender, normal bowel sounds - Extremities Exam Extremities exam: Present: full ROM, joint swelling (Joint swelling of the MTP of the great toe of the right foot). Absent: tenderness - Neurological Exam Neurological exam: Present: alert, oriented X3 - Psychiatric Psychiatric exam: Present: normal affect, normal mood - Skin Skin exam: Present: warm, dry Course Course Narrative: She presents with a complaint of nausea and vomiting and diarrhea for the past 3 days. He does have fevers and chills as well. We noted that when he walked from the triage to the bed his O2 sats dropped into 84%. He then admitted to coughing and dyspnea on exertion at home. Patient is also diabetic. He reports having been out in the heat a lot over the weekend. Heart rate and blood pressure are good. He does not appear toxic. A number of possibilities exist here including pneumonia which could cause all of his symptoms. He has had C. difficile in the past and as possible. He may be anemic. This may be diabetic related. He is to require a detailed workup. I ordered a full workup and we will give him some fluids and some anti-medics. Disposition will be based on diagnostic results and reevaluation. - Reevaluation(s) Reevaluation #1: Chest x-ray came back negative. Labs came back showing acute kidney injury with dehydration and hyponatremia. Most likely related to volume loss secondary to the vomiting and diarrhea. Still waiting to collect a stool sample for C. difficile. Patient is noted to be admitted to the hospital for management of this condition. I spoke with the hospitalist already. He is given orders to accept the patient for admission. We will have the patient on the monitor and do serial troponins in addition to IV hydration and anti-medics. Time: 11:12 - Consultations Consultation #1: Dr. Lam, hospitalist - I discussed the case with the hospice. He accepted the patient for admission. Time: 11:05 Vital Signs Temperature 98.1 F 04/09/19 09:13 Pulse Rate 99 04/09/19 09:13 Respiratory Rate 22 04/09/19 09:13 Blood Pressure 94/63 04/09/19 09:13 O2 Sat by Pulse Oximetry 93 04/09/19 09:13 Temperature 98.1 F 04/09/19 09:13 Pulse Rate 95 04/09/19 10:53 Respiratory Rate 24 04/09/19 10:53 Blood Pressure 90/59 04/09/19 10:53 O2 Sat by Pulse Oximetry 98 04/09/19 10:53 Oxygen Delivery Oxygen Delivery Nasal Cannula Nausea/Vomiting/Diarrhea - Medical Records Medical records reviewed: Yes I reviewed the patient's medical records. - Lab Data Lab results reviewed: Yes I reviewed the patient's lab results. Result diagrams: 04/09/19 10:00 04/09/19 10:00 Lab Results 04/09/19 04/09/19 04/09/19 Range/Units 10:00 10:00 10:00 WBC 16.6 H (4.3-11.1) K/mcL RBC 5.57 H (4.19-5.50) M/mcL Hgb 17.2 H (12.9-16.9) g/dL Hct 49.8 (37.5-50.1) % MCV 89.4 (83.0-100.0) fL MCH 30.9 (28.0-33.3) pg MCHC 34.5 (31.6-35.5) g/dL RDW 13.4 (11.5-14.5) % Plt Count 142 (140-400) K/mcL MPV 11.2 (9.4-12.4) fL Immature Gran % 2.2 (0-4) % Seg Neutrophils % 87.6 % Lymphocytes % 5.3 % Monocytes % 4.4 % Eosinophils % 0.3 % Basophils % 0.2 % Neutrophils # 14.5 H (1.6-8.9) K/mcL Lymphocytes # 0.9 (0.6-4.6) K/mcL Monocytes # 0.7 (0.0-1.3) K/mcL Eosinophils # 0.1 (0.0-0.6) K/mcL Basophils # 0.0 (0.0-0.2) K/mcL PT (9.4-12.1) Seconds INR APTT 33.8 (26.0-36.0) Seconds VBG pH (7.32-7.42) pH Units VBG pCO2 (41-51) mmHg VBG pO2 (25-50) mmHg VBG HCO3 (21-27) mEq/L Inspired O2 (1-15=lpm ic64-545=%) Sodium (136-145) mEq/L Potassium (3.5-5.1) mEq/L Chloride (98-107) mEq/L Carbon Dioxide (23-29) mEq/L BUN (8-23) mg/dL Creatinine (0.70-1.30) mg/dL Est GFR ( Amer) (> 60) Est GFR (Non-Af Amer) (> 60) BUN/Creatinine Ratio (6-26) Glucose (70-105) mg/dL Calculated Osmolality (280-300) Lactic Acid (0.5-2.2) mmol/L Calcium (8.6-10.3) mg/dL Total Bilirubin (0.3-1.0) mg/dL Direct Bilirubin (0.0-0.2) mg/dL Indirect Bilirubin (0.0-1.2) mg/dL AST (13-39) Units/L ALT (7-52) Units/L Alkaline Phosphatase (34-104) Units/L Troponin I (< 0.04) ng/mL B-Natriuretic Peptide 104 H (Less than 100) pg/mL Serum Total Protein (6.4-8.9) g/dL Albumin (3.5-5.7) g/dL Globulin (2.4-3.5) g/dL Albumin/Globulin Ratio (1.1-2.2) Lipase (11-82) Units/L 04/09/19 04/09/19 04/09/19 Range/Units 10:00 10:00 10:00 WBC (4.3-11.1) K/mcL RBC (4.19-5.50) M/mcL Hgb (12.9-16.9) g/dL Hct (37.5-50.1) % MCV (83.0-100.0) fL MCH (28.0-33.3) pg MCHC (31.6-35.5) g/dL RDW (11.5-14.5) % Plt Count (140-400) K/mcL MPV (9.4-12.4) fL Immature Gran % (0-4) % Seg Neutrophils % % Lymphocytes % % Monocytes % % Eosinophils % % Basophils % % Neutrophils # (1.6-8.9) K/mcL Lymphocytes # (0.6-4.6) K/mcL Monocytes # (0.0-1.3) K/mcL Eosinophils # (0.0-0.6) K/mcL Basophils # (0.0-0.2) K/mcL PT 19.1 H (9.4-12.1) Seconds INR 1.7 APTT (26.0-36.0) Seconds VBG pH (7.32-7.42) pH Units VBG pCO2 (41-51) mmHg VBG pO2 (25-50) mmHg VBG HCO3 (21-27) mEq/L Inspired O2 (1-15=lpm ue87-959=%) Sodium 129 L (136-145) mEq/L Potassium 3.7 (3.5-5.1) mEq/L Chloride 88 L (98-107) mEq/L Carbon Dioxide 28 (23-29) mEq/L BUN 58 H (8-23) mg/dL Creatinine 3.05 H (0.70-1.30) mg/dL Est GFR ( Amer) 25 L (> 60) Est GFR (Non-Af Amer) 20 L (> 60) BUN/Creatinine Ratio 19 (6-26) Glucose 369 H (70-105) mg/dL Calculated Osmolality 299 (280-300) Lactic Acid 2.5 H (0.5-2.2) mmol/L Calcium 8.1 L (8.6-10.3) mg/dL Total Bilirubin 2.0 H (0.3-1.0) mg/dL Direct Bilirubin 0.6 H (0.0-0.2) mg/dL Indirect Bilirubin 1.4 H (0.0-1.2) mg/dL AST 11 L (13-39) Units/L ALT 12 (7-52) Units/L Alkaline Phosphatase 62 (34-104) Units/L Troponin I 0.04 H* (< 0.04) ng/mL B-Natriuretic Peptide (Less than 100) pg/mL Serum Total Protein 6.4 (6.4-8.9) g/dL Albumin 3.1 L (3.5-5.7) g/dL Globulin 3.3 (2.4-3.5) g/dL Albumin/Globulin Ratio 0.9 L (1.1-2.2) Lipase 13 (11-82) Units/L 04/09/19 Range/Units 10:15 WBC (4.3-11.1) K/mcL RBC (4.19-5.50) M/mcL Hgb (12.9-16.9) g/dL Hct (37.5-50.1) % MCV (83.0-100.0) fL MCH (28.0-33.3) pg MCHC (31.6-35.5) g/dL RDW (11.5-14.5) % Plt Count (140-400) K/mcL MPV (9.4-12.4) fL Immature Gran % (0-4) % Seg Neutrophils % % Lymphocytes % % Monocytes % % Eosinophils % % Basophils % % Neutrophils # (1.6-8.9) K/mcL Lymphocytes # (0.6-4.6) K/mcL Monocytes # (0.0-1.3) K/mcL Eosinophils # (0.0-0.6) K/mcL Basophils # (0.0-0.2) K/mcL PT (9.4-12.1) Seconds INR APTT (26.0-36.0) Seconds VBG pH 7.39 (7.32-7.42) pH Units VBG pCO2 46 (41-51) mmHg VBG pO2 23 L (25-50) mmHg VBG HCO3 27 (21-27) mEq/L Inspired O2 2.0 (1-15=lpm md67-915=%) Sodium (136-145) mEq/L Potassium (3.5-5.1) mEq/L Chloride (98-107) mEq/L Carbon Dioxide (23-29) mEq/L BUN (8-23) mg/dL Creatinine (0.70-1.30) mg/dL Est GFR ( Amer) (> 60) Est GFR (Non-Af Amer) (> 60) BUN/Creatinine Ratio (6-26) Glucose (70-105) mg/dL Calculated Osmolality (280-300) Lactic Acid (0.5-2.2) mmol/L Calcium (8.6-10.3) mg/dL Total Bilirubin (0.3-1.0) mg/dL Direct Bilirubin (0.0-0.2) mg/dL Indirect Bilirubin (0.0-1.2) mg/dL AST (13-39) Units/L ALT (7-52) Units/L Alkaline Phosphatase (34-104) Units/L Troponin I (< 0.04) ng/mL B-Natriuretic Peptide (Less than 100) pg/mL Serum Total Protein (6.4-8.9) g/dL Albumin (3.5-5.7) g/dL Globulin (2.4-3.5) g/dL Albumin/Globulin Ratio (1.1-2.2) Lipase (11-82) Units/L - Radiology Data Radiology results reviewed: Yes I reviewed the patient's radiology results. - EKG Data EKG attestation: Yes I reviewed and interpreted this EKG. EKG results narrative: Twelve-lead EKG performed at 9:25 AM. Ordered, reviewed and interpreted by ED physician shows atrial fibrillation at a rate of 97. Normal axis. Good hour progression across to precordium. No acute ischemic changes. Intervals are within normal limits.
[2019-04-09 10:18] LABS: VBG HCO3 27 mEq/L (21-27); VBG PCO2 46 mmHg (41-51); VBG PH 7.39 pH Units (7.32-7.42); VBG PO2 23 mmHg (25-50)
[2019-04-09 10:28] LABS: Basophils % 0.2 %; Eosinophils # 0.1 K/mcL (0.0-0.6); Eosinophils % 0.3 %; Hematocrit 49.8 % (37.5-50.1); Hemoglobin 17.2 g/dL (12.9-16.9); Immature Granulocytes % 2.2 % (0-4); Lymphocytes # 0.9 K/mcL (0.6-4.6); Lymphocytes % 5.3 %; Mean Corpuscular HGB Conc 34.5 g/dL (31.6-35.5); Mean Corpuscular Hemoglobin 30.9 pg (28.0-33.3); Mean Corpuscular Volume 89.4 fL (83.0-100.0); Mean Platelet Volume 11.2 fL (9.4-12.4); Monocytes # 0.7 K/mcL (0.0-1.3); Monocytes % 4.4 %; Platelet Count 142 K/mcL (140-400); Red Blood Count 5.57 M/mcL (4.19-5.50); Red Cell Distribution Width 13.4 % (11.5-14.5); Segmented Neutrophils % 87.6 %; White Blood Count 16.6 K/mcL (4.3-11.1)
[2019-04-09 10:29] LABS: INR 1.7; Prothrombin Time 19.1 Seconds (9.4-12.1)
[2019-04-09 10:35] LABS: Neutrophils # 14.5 K/mcL (1.6-8.9)
[2019-04-09 10:38] LABS: Albumin 3.1 g/dL (3.5-5.7); Albumin/Globulin Ratio 0.9 (1.1-2.2); Bilirubin,Direct 0.6 mg/dL (0.0-0.2); Bilirubin,Indirect 1.4 mg/dL (0.0-1.2); Calcium 8.1 mg/dL (8.6-10.3); Globulin 3.3 g/dL (2.4-3.5); Potassium 3.7 mEq/L (3.5-5.1); Total Protein 6.4 g/dL (6.4-8.9)
[2019-04-09 10:44] LABS: Troponin I 0.04 ng/mL (< 0.04)
[2019-04-09] MEDS ORDERED: *HR* HYDROcodone/Acet 5/325 mg TABLET PO ONE (12:19)
[2019-04-09] MEDS ORDERED: Ondansetron 4 MG/2 ML VIAL IVP PRN ×2 (13:22→14:55)
[2019-04-09] MEDS ORDERED: 0.9 % Sodium Chloride 1,000 ML IVC SCH (13:22)
[2019-04-09] MEDS ORDERED: Naloxone 0.4 MG/ML INJ IVP PRN (13:22)
--- NOTE | 2019-04-09 14:42 | Internal Med History&Physical ---
Date of Encounter: 04/09/19 Time of Encounter: 14:15 Assessment and Plan (1) Gastroenteritis Current visit: Yes Status: Acute IV fluids will be ordered. Antiemetics will be given as needed. (2) Atrial fibrillation Current visit: Yes Status: Chronic Continue Coumadin. Qualifiers: Atrial fibrillation type: chronic Qualified Code(s): I48.2 - Chronic atrial fibrillation (3) CKD (chronic kidney disease) stage 3, GFR 30-59 ml/min Current visit: Yes Status: Chronic Monitor renal indices. (4) Hypertension Current visit: Yes Status: Chronic Low-pressure borderline low. Coreg will be held for now. Qualifiers: Hypertension type: essential hypertension Qualified Code(s): I10 - Essential (primary) hypertension (5) DM type 2 (diabetes mellitus, type 2) Current visit: Yes Status: Chronic Hemoglobin A1c was 11.0% on 02/27/2019. Continue basal insulin and Accu-Cheks with SSI. Qualifiers: Diabetes mellitus chcf insulin use: with intermediate designer use Diabetes mellitus complication status: with kidney complications Diabetes mellitus complication detail: with chronic kidney disease Chronic kidney disease stage: stage 3 (moderate) Qualified Code(s): E11.22 - Type 2 diabetes mellitus with diabetic chronic kidney disease; N18.3 - Chronic kidney disease, stage 3 (moderate); Z79.4 - group home (current) use of insulin (6) Polycythemia Current visit: No Status: Chronic IV fluids will be given. CBC will be checked in a.m. (7) Acute kidney injury Current visit: Yes Status: Acute IV fluids will be given and labs repeated in a.m. (8) Hyponatremia Current visit: Yes Status: Acute Recheck labs in a.m. Internal Medicine - H&P: HPI Chief complaint: Vomiting, diarrhea, acute on chronic renal failure Admitted From: Emergency Dept Plans for Post Hospital Care: Home History of present illness: Mr. Green is a 74 year old male who came to emergency room stating he had not felt well the previous 3 days. He developed nonbloody vomiting and diarrhea approximately 24-36 hours prior to ER visit. He reported feeling fevers and chilled. He was evaluated in emergency room and was found to have leukocytosis with left shift and acute on chronic renal failure. He was admitted to [facility] floor for ongoing care needs. He reports his daughter had nausea approximately 3 days ago without additional symptoms. GI history is pertinent for C. difficile infection December 2016 following clindamycin use for foot infection. He denies disorders of his liver gallbladder or exocrine pancreas. Past Med Surg Social Fam HX - Past Medical History Medical history: arthritis, atrial fibrillation, COPD, coronary artery disease, diabetes, hyperlipidemia, hypertension, myocardial infarction, renal disease, other Additional medical history: Gout. Diabetic ulcers. BPH. ALEXX Psychiatric history: depression - Past Surgical History Surgical History: orthopedic, other, other Additional surgical history: BACK SURGERY. THROAT SURGERY FOR SLEEP APNEA. Right Foot Toe surgery. Left hip. cardiac stents - Social History Smoking Status: Former smoker Smokeless Tobacco Status: No Alcohol use: none Drug use: none - Family History Father Living Status: Hx Family Cardiac Disorders: Yes Hx Family Endocrine Disorder: Yes Mother Living Status: Hx Family Cancer: Yes Internal Medicine - H&P: Meds Cholecalciferol (Vitamin D3) [Vitamin D3] 50,000 unit PO WD 06/10/15 [History] Warfarin [Coumadin] 2.5 mg PO DAILY 06/10/15 [History] Carvedilol [Coreg] 25 mg PO DAILY 01/03/16 [History] Tamsulosin [Flomax] 0.8 mg PO DAILY #60 capsule 06/18/17 [Rx] Hydrocodone/Acetaminophen [Hydrocodon-Acetaminophen 5-325] 1 each PO Q6H 01/08/18 [History] Furosemide [Lasix] 40 mg PO DAILY 03/01/18 [History] Trazodone HCl 100 mg PO HS 03/01/18 [History] Simvastatin [Zocor] 20 mg PO HS 09/04/18 [History] DULoxetine [Cymbalta] 20 mg PO BID 01/23/19 [History] Insulin Glargine,Hum.rec.anlog [Lantus Solostar] 50 unit SQ HS 01/23/19 [History] Allergy/AdvReac Type Severity Reaction Status Date / Time ciprofloxacin [From Cipro] Allergy Itching Verified 06/15/17 17:30 meloxicam Allergy See Verified 10/29/18 07:51 Comments clindamycin AdvReac Diarrhea Verified 12/07/17 22:03 colchicine AdvReac Diarrhea Verified 03/01/18 13:58 gabapentin AdvReac Confusion Verified 03/01/18 13:59 bee stings Allergy Swelling Uncoded 10/29/18 07:50 of Lip/Tongue/Throat All Systems PM: A 10-system review of systems was performed and is negative for pertinent findings except as documented above in the HPI. Review of systems: Review of systems from his June 2017 [facility] hospitalization were reviewed and revised as below. Gen.: His weight has decreased from 132.4 kg on 07/20/2017 to present weight of 127.006 kg. Cardiovascular: He has hypertension and atrial fibrillation. He has had DVT in the past but no pulmonary embolism. He is on Coumadin for the history of DVT and atrial fibrillation. He claims had a [place] 2015 followed by 2 stents placed. He had an echocardiogram 02/07/2017 which showed LVEF of 55%. There was indeterminate LV diastolic function because of atrial fibrillation. There was mild TR and biatrial enlargement. Limited echocardiogram 07/17/2017 showed LVEF of 60-65%. A Regadenoson stress test 05/31/2017 showed LVEF of 54% with perfusion imaging negative for ischemia or infarct. Respiratory: He states he "chewed cigars" in the past but did not smoke cigarettes. He thinks he has a diagnosis of asthma and had PFTs over 5 years ago. He does not use home oxygen. GI: As per history of present illness : He has BPH and is on Flomax. He had cystoscopy approximately 2011 without intervention. He does not have known prostate malignancy. He has had hematuria in the past. He has chronic kidney disease stage III and follows with a [place] incident response lead. Neurologic: He denies large distribution strokes or seizures. Endocrine: He was diagnosed with DM 2 approximately 2012. He has hyperlipidemia but no known thyroid disease. Hematology/oncology: He has been diagnosed with polycythemia and follows with a cigar head pegger/oncologist at [facility]. He denies internal malignancies or other blood disorders Psychiatric: He has history of depression but no significant anxiety other m ental health issues [place] skeletal: He has a diagnosis of gout. He has had left total hip replacemen t and back surgery. - Constitutional Vitals: Temp Pulse Resp BP Pulse Ox 98.1 F 90 22 93/63 91 04/09/19 09:13 04/09/19 13:14 04/09/19 13:14 04/09/19 13:14 04/09/19 13:14 Exam: Gen.: He is a well-developed overweight male lying in bed who appears in no significant distress at present time HEENT: Head is atraumatic and normocephalic. Eyes: EOMI. There is no scleral icterus. Mouth: Mucosa is moist. Neck: There is no thyromegaly or adenopathy noted. Heart: Irregularly irregular without murmurs or gallops Lungs: No wheezes or crackles are heard. Abdomen: Soft and nontender. No masses or guarding are noted. Extremities: There is no cyanosis edema or clubbing noted. Dorsalis pedis and posttibial pulses are trace palpable bilaterally. The right foot first toe MTP joint has increased erythema and warmth to touch. There is no significant pain on movement. Neurologic: Mental status: He is talkative and a good historian. Cranial nerves: Smile is symmetric. Forehead wrinkles bilaterally. Tongue protrudes midline. EOMI. Motor: There is no pronator drift. Cerebellar: Finger to nose is intact bilaterally. Skin: Warm and dry Internal Med - H&P Results - Labs CBC & Chem 7: 04/09/19 10:00 04/09/19 10:00 Labs: Short CBC 04/09/19 Range/Units 10:00 WBC 16.6 H (4.3-11.1) K/mcL Hgb 17.2 H (12.9-16.9) g/dL Hct 49.8 (37.5-50.1) % Plt Count 142 (140-400) K/mcL Neutrophils # 14.5 H (1.6-8.9) K/mcL BMP 04/09/19 10:00 Sodium 129 L Potassium 3.7 Chloride 88 L Carbon Dioxide 28 BUN 58 H Creatinine 3.05 H Glucose 369 H Calcium 8.1 L Cardiac Enzymes 04/09/19 04/09/19 Range/Units 10:00 13:44 Troponin I 0.04 H* 0.03 (< 0.04) ng/mL Liver Function 04/09/19 Range/Units 10:00 Total Bilirubin 2.0 H (0.3-1.0) mg/dL Direct Bilirubin 0.6 H (0.0-0.2) mg/dL AST 11 L (13-39) Units/L ALT 12 (7-52) Units/L Alkaline Phosphatase 62 (34-104) Units/L Albumin 3.1 L (3.5-5.7) g/dL - ABG Interpretation ABG results: 04/09/19 10:15 VBG pH 7.39 VBG pCO2 46 VBG pO2 23 L VBG HCO3 27 - Impressions ITS Impressions Chest X-Ray 04/09/19 09:30 IMPRESSION: No acute process. D/ / Anderson Graff MD / Anderson Graff MD Interpreting Provider: Anderson Graff MD
[2019-04-09] MEDS: 0.9 % Sodium Chloride w KCl 20 MEQ/1,000 ML MLS IVC SCH (15:22)
[2019-04-09] MEDS ORDERED: *HR* Dextrose 50 % in Water (Syg) 50 ML SYRINGE IVP PRN (15:56)
[2019-04-09] MEDS ORDERED: D5% in Water 1,000 ML IVC PRN (15:56)
[2019-04-09] MEDS ORDERED: Dextrose Gel 15 GM/37.5 ML TUBE PO PRN ×2 (15:56)
[2019-04-09] MEDS: *HR* Warfarin 2.5 MG TABLET PO SCH (16:46)
[2019-04-09] MEDS: Insulin LISPRO 300 UNITS/3 ML VIAL SQ SCH (16:47)
[2019-04-09] MEDS ORDERED: Insulin DETEMIR 100 UNIT/ML X5UNITS SQ SCH (21:00)
[2019-04-09] MEDS ORDERED: traZODone 50 MG TABLET PO SCH (21:00)
[2019-04-09] MEDS ORDERED: Insulin LISPRO 300 UNITS/3 ML VIAL SQ SCH (21:00)
[2019-04-09] MEDS: Vancomycin Oral Soln 125 MG/2.5 ML UDC PO SCH (21:22)
[2019-04-10] MEDS: 0.9 % Sodium Chloride w KCl 20 MEQ/1,000 ML MLS IVC SCH ×2 (01:10→11:30)
[2019-04-10 01:40] LABS: Basophils % 0.1 %; Eosinophils # 0.3 K/mcL (0.0-0.6); Eosinophils % 1.9 %; Hematocrit 46.6 % (37.5-50.1); Hemoglobin 15.8 g/dL (12.9-16.9); Immature Granulocytes % 0.9 % (0-4); Lymphocytes % 6.5 %; Mean Corpuscular HGB Conc 33.9 g/dL (31.6-35.5); Mean Corpuscular Volume 91.4 fL (83.0-100.0); Monocytes # 0.8 K/mcL (0.0-1.3); Monocytes % 5.3 %; Platelet Count 133 K/mcL (140-400); Red Cell Distribution Width 13.8 % (11.5-14.5); Segmented Neutrophils % 85.3 %; White Blood Count 14.6 K/mcL (4.3-11.1)
[2019-04-10 01:45] LABS: Neutrophils # 12.5 K/mcL (1.6-8.9)
[2019-04-10 03:55] LABS: Calcium 7.6 mg/dL (8.6-10.3); Magnesium 1.6 mg/dL (1.6-2.6); Potassium 3.8 mEq/L (3.5-5.1)
[2019-04-10 06:18] LABS: Acinetobacter baumannii by PCR Not Detected (Not Detect); Candida albicans by PCR Not Detected (Not Detect); Candida glabrata by PCR Not Detected (Not Detect); Candida krusei by PCR Not Detected (Not Detect); Candida parapsilosis by PCR Not Detected (Not Detect); Candida tropicalis by PCR Not Detected (Not Detect); Enterobacter cloacae Cmplx PCR Not Detected (Not Detect); Enterobacteriaceae by PCR Not Detected (Not Detect); Enterococcus by PCR Not Detected (Not Detect); Escherichia coli by PCR Not Detected (Not Detect); Klebsiella oxytoca by PCR Not Detected (Not Detect); Klebsiella pneumoniae by PCR Not Detected (Not Detect); Proteus by PCR Not Detected (Not Detect); Pseudomonas aeruginosa by PCR Not Detected (Not Detect); Serratia marcescens by PCR Not Detected (Not Detect); Streptococcus agalactiae(B)PCR Not Detected (Not Detect); Streptococcus by PCR Not Detected (Not Detect); Streptococcus pneumoniae PCR Not Detected (Not Detect); Streptococcus pyogenes (A) PCR Not Detected (Not Detect); blaKPC Carbapenem-Resist Gene Not Detected (Not Detect); vanA/B Vancomycin-Resist Genes Not Detected (Not Detect)
[2019-04-10 06:19] LABS: Staphylococcus aureus by PCR DETECTED (Not Detect); mecA Methicillin-Resist Gene DETECTED (Not Detect)
[2019-04-10] MEDS ORDERED: WATER FOR INJ IVPB ONE (07:00)
[2019-04-10] MEDS ORDERED: VANCOMYCIN IVPB ONE (07:00)
[2019-04-10] MEDS ORDERED: Cholecalciferol (D-3) 1,000 UNIT (25MCG) TABLET PO SCH (09:00)
[2019-04-10] MEDS: Vancomycin Oral Soln 125 MG/2.5 ML UDC PO SCH ×4 (09:15→18:06)
[2019-04-10] MEDS: Insulin LISPRO 300 UNITS/3 ML VIAL SQ SCH ×3 (09:15→18:09)
[2019-04-10] MEDS ORDERED: *HR* OxyCODONE/APAP 5/325 TABLET PO PRN (12:46)
[2019-04-10] MEDS ORDERED: Acetaminophen 325 MG TABLET PO ONE (13:03)
[2019-04-10] MEDS ORDERED: 0.9 % Sodium Chloride w KCl 20 MEQ/1,000 ML MLS IVC SCH (14:00)
[2019-04-10] MEDS ORDERED: 0.9 % Sodium Chloride 500 ML IVC ONE ×2 (14:27→16:00)
--- NOTE | 2019-04-10 15:15 | Electrocardiograph Report ---
[place] [id number] Test Date: 2019-04-09 Pat Name: Nilson Green Department: [id number]-[id number] Room: [facility] Gender: M Truck Sales Representative: : 1945 Requested By: Nilson Weinstein Order Number: [id number] Reading MD: Nilson Flynn Measurements Intervals [place] Rate: 97 P: [place]: QRS: 59 QRSD: 108 T: 57 QT: 343 QTc: 436 Interpretive Statements Atrial fibrillation Low voltage, extremity leads Electronically Signed On 04-10-2019 15:13:57 EDT by Nilson Flynn
[2019-04-10] MEDS ORDERED: 0.9 % Sodium Chloride 1,000 ML IVC SCH (15:45)
[2019-04-10] MEDS ORDERED: 0.9 % Sodium Chloride 500 ML IVC SCH (15:45)
--- NOTE | 2019-04-10 16:28 | Discharge Summary ---
Orders not resulted at time of discharge: Pending orders 04/09/19 10:15 Culture,Blood [] Stat Date of Encounter: 04/10/19 Time of Encounter: 15:30 - Discharge Diagnosis (1) MRSA bacteremia Priority: Primary Status: Acute (2) C. difficile colitis Priority: Secondary Status: Acute (3) Gastroenteritis Priority: Secondary Status: Acute (4) Atrial fibrillation Priority: Secondary Status: Chronic Qualifiers: Atrial fibrillation type: chronic Qualified Code(s): I48.2 - Chronic atrial fibrillation (5) CKD (chronic kidney disease) stage 3, GFR 30-59 ml/min Priority: Secondary Status: Chronic (6) Hypertension Priority: Secondary Status: Chronic Qualifiers: Hypertension type: essential hypertension Qualified Code(s): I10 - Essential (primary) hypertension (7) DM type 2 (diabetes mellitus, type 2) Priority: Secondary Status: Chronic Qualifiers: Diabetes mellitus watermelon harvesting supervisor insulin use: with watermelon harvesting supervisor use Diabetes mellitus complication status: with kidney complications Diabetes mellitus complication detail: with chronic kidney disease Chronic kidney disease stage: stage 3 (moderate) Qualified Code(s): E11.22 - Type 2 diabetes mellitus with diabetic chronic kidney disease; N18.3 - Chronic kidney disease, stage 3 (moderate); Z79.4 - terminal press operator (current) use of insulin (8) Polycythemia Priority: Secondary Status: Chronic (9) Acute kidney injury Priority: Secondary Status: Acute (10) Hyponatremia Priority: Secondary Status: Acute Hospital course: Mr. Green is a 74 year old male who came to emergency room stating he had not felt well the previous 3 days. He developed nonbloody vomiting and diarrhea approximately 24-36 hours prior to ER visit. He reported feeling fevers and chilled. He was evaluated in emergency room and was found to have leukocytosis with left shift and acute on chronic renal failure. He was admitted to [facility] floor for ongoing care needs. Initial orders were written by the emergency room physician. I saw him on April 09 and performed the history and physical. He was given IV fluids and prn anti-emetics. He had no further vomiting after admission. Blood cultures were drawn with 2/2 showing MRSA. He was started on IV vancomycin. Echocardiogram was ordered with report pending at time of discharge. He complained of worsening pain in his hip/pelvis area. CT scans were done and showed L3-4 endplate irregularity likely due to severe degenerative disc disease and less likely superimposed discitis/osteomyelitis. There is severe spinal canal stenosis at L3-4. 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 No abscess or other bony pathology was reported. The etiology of MRSA is not known. Stool returned positive for C. difficile. He was started on oral vancomycin. WBC decreased to 14.6 on April 10 with persistent left shift on differential. Blood pressure showed gradual decrease beginning the morning of April 10. Fluid boluses did not result in significant response. I discussed with patient and family and recommended he be transferred for ongoing care needs. Family requested him to go to [facility]. - Time Spent with Patient Total time spent providing and/or coordinating discharge services: - Discharge Medications Prescriptions: No Action Cholecalciferol (Vitamin D3) [Vitamin D3] 50,000 unit PO WD Warfarin [Coumadin] 2.5 mg PO DAILY Furosemide [Lasix] 40 mg PO DAILY Trazodone HCl 150 mg PO HS Simvastatin [Zocor] 20 mg PO HS Carvedilol [Coreg] 25 mg PO DAILY Hydrocodone/Acetaminophen [Hydrocodon-Acetaminophen 5-325] 1 each PO Q6H PRN PRN Reason: Pain DULoxetine [Cymbalta] 20 mg PO BID Insulin Glargine,Hum.rec.anlog [Lantus Solostar] 50 unit SQ HS Losartan-Hctz 100-25 mg Tab 100 mg PO DAILY Home Medications: Cholecalciferol (Vitamin D3) [Vitamin D3] 50,000 unit PO WD 06/10/15 [History] Warfarin [Coumadin] 2.5 mg PO DAILY 06/10/15 [History] Carvedilol [Coreg] 25 mg PO DAILY 01/03/16 [History] Hydrocodone/Acetaminophen [Hydrocodon-Acetaminophen 5-325] 1 each PO Q6H PRN 01/08/18 [History] Furosemide [Lasix] 40 mg PO DAILY 03/01/18 [History] Trazodone HCl 150 mg PO HS 03/01/18 [History] Simvastatin [Zocor] 20 mg PO HS 09/04/18 [History] DULoxetine [Cymbalta] 20 mg PO BID 01/23/19 [History] Insulin Glargine,Hum.rec.anlog [Lantus Solostar] 50 unit SQ HS 01/23/19 [History] Losartan-Hctz 100-25 mg Tab 100 mg PO DAILY 04/09/19 [History] Allergies/Adverse Reactions: Allergy/AdvReac Type Severity Reaction Status Date / Time ciprofloxacin [From Cipro] Allergy Itching Verified 06/15/17 17:30 meloxicam Allergy See Verified 10/29/18 07:51 Comments clindamycin AdvReac Diarrhea Verified 12/07/17 22:03 colchicine AdvReac Diarrhea Verified 03/01/18 13:58 gabapentin AdvReac Confusion Verified 03/01/18 13:59 bee stings Allergy Swelling Uncoded 10/29/18 07:50 of Lip/Tongue/Throat Date of admission: 04/09/19 11:22 Primary care physician: Deepali Nguyen CNP - Constitutional Vitals: Temp Pulse Resp BP Pulse Ox 97.1 F L 95 20 74/45 93 04/10/19 14:22 04/10/19 14:22 04/10/19 14:22 04/10/19 15:35 04/10/19 14:22 - Patient Status Disposition: Transfer Other Condition: Fair - Discharge Instructions - VTE Documentation of Mechanical Device: Graduated compression elastic hosiery
[2019-04-10] MEDS ORDERED: Norepinephrine 4 MG in D5% in Water 250 ML IVC SCH (17:00)
[2019-04-10 17:14] VITALS: BP 82/55
[2019-04-10] MEDS: *HR* Warfarin 2.5 MG TABLET PO SCH (18:06)
[2019-04-10] MEDS ORDERED: Aminoglycoside Consult 1 EACH MC ONE (18:24)
== END 2019-04-10 18:25 | disposition other institution (70) ==
LOC: EMEROOPIK 09:10 → INPPIK 09:10
PROVIDERS: ADMIT Internal Medicine; ATTEND Internal Medicine

== ENCOUNTER 2019-05-07 16:10 | Inpatient (IN) ==
[2019-05-07] MEDS ORDERED: *HR* Dextrose 50 % in Water (Syg) 50 ML SYRINGE IVP PRN (17:18)
[2019-05-07] MEDS ORDERED: Dextrose Gel 15 GM/37.5 ML TUBE PO PRN ×2 (17:18)
[2019-05-07] MEDS ORDERED: D5% in Water 1,000 ML IVC PRN (17:18)
[2019-05-07] MEDS ORDERED: *HR* Warfarin 5 MG TABLET PO SCH (18:00)
[2019-05-07] MEDS: Sennosides/Docusate Sodium TABLET PO SCH (22:00)
[2019-05-07] MEDS: Insulin DETEMIR 100 UNIT/ML X5UNITS SQ SCH (22:07)
[2019-05-07] MEDS: *HR* OxyCODONE Immed Rel 5 MG TABLET PO PRN (22:18)
[2019-05-07] MEDS: Budesonide/Formoterol 80/4.5 1 PUFF INH IH SCH (22:46)
[2019-05-08] MEDS: Acetaminophen 325 MG TABLET PO PRN ×3 (00:36→17:05)
[2019-05-08] MEDS: *HR* OxyCODONE Immed Rel 5 MG TABLET PO PRN ×4 (04:04→19:56)
[2019-05-08] MEDS ORDERED: *HR* Enoxaparin 100 MG/ML SYRINGE SQ SCH (06:00)
[2019-05-08 07:02] LABS: Basophils % 0.3 %; Eosinophils # 0.1 K/mcL (0.0-0.6); Eosinophils % 1.6 %; Hematocrit 27.9 % (37.5-50.1); Hemoglobin 8.8 g/dL (12.9-16.9); Immature Granulocytes % 0.8 % (0-4); Lymphocytes # 1.5 K/mcL (0.6-4.6); Lymphocytes % 24.6 %; Mean Corpuscular HGB Conc 31.5 g/dL (31.6-35.5); Mean Corpuscular Hemoglobin 30.1 pg (28.0-33.3); Mean Corpuscular Volume 95.5 fL (83.0-100.0); Mean Platelet Volume 9.5 fL (9.4-12.4); Monocytes # 0.7 K/mcL (0.0-1.3); Monocytes % 11.2 %; Neutrophils # 3.9 K/mcL (1.6-8.9); Platelet Count 286 K/mcL (140-400); Red Blood Count 2.92 M/mcL (4.19-5.50); Red Cell Distribution Width 13.4 % (11.5-14.5); Segmented Neutrophils % 61.5 %; White Blood Count 6.3 K/mcL (4.3-11.1)
[2019-05-08 07:22] LABS: Prothrombin Time 22.8 Seconds (9.4-12.1)
[2019-05-08] MEDS: Levothyroxine 25 MCG TABLET PO SCH (07:23)
[2019-05-08] MEDS: Cholecalciferol (D-3) 1,000 UNIT (25MCG) TABLET PO SCH (08:09)
[2019-05-08] MEDS: Sennosides/Docusate Sodium TABLET PO SCH ×2 (08:09→19:56)
[2019-05-08] MEDS: Insulin LISPRO 300 UNITS/3 ML VIAL SQ SCH ×3 (08:09→16:40)
[2019-05-08] MEDS: amLODIPine 5 MG TABLET PO SCH (08:10)
[2019-05-08] MEDS: Furosemide 40 MG TABLET PO SCH (08:10)
[2019-05-08] MEDS: Insulin DETEMIR 100 UNIT/ML X5UNITS SQ SCH ×2 (08:23→19:59)
[2019-05-08] MEDS: Budesonide/Formoterol 80/4.5 1 PUFF INH IH SCH ×2 (09:38→22:37)
[2019-05-08] MEDS: tiZANidine 4 MG TABLET PO PRN (11:17)
[2019-05-08] MEDS: *HR* FentaNYL PATCH 25 MCG PATCH TD SCH (11:37)
--- NOTE | 2019-05-08 15:21 | Internal Med History&Physical ---
Date of Encounter: 05/08/19 Time of Encounter: 14:45 Assessment and Plan (1) MRSA bacteremia Current visit: No Status: Acute Continue IV vancomycin through 06/06/2019. Lactobacillus will be added. (2) Back pain Current visit: Yes Status: Acute Status post L3-4 discitis debridement with laminectomy. Continue IV vancomycin for infection. Duragesic patch has been ordered. Continue other analgesics as needed. Qualifiers: Back pain location: low back pain Chronicity: chronic Back pain laterality: midline Sciatica presence: unspecified whether sciatica present Qualified Code(s): M54.5 - Low back pain; G89.29 - Other chronic pain (3) CKD (chronic kidney disease) stage 3, GFR 30-59 ml/min Current visit: No Status: Chronic Monitor renal indices. (4) Atrial fibrillation Current visit: No Status: Chronic Continue Coumadin and monitor INR. Qualifiers: Atrial fibrillation type: chronic Qualified Code(s): I48.2 - Chronic atrial fibrillation (5) Hypertension Current visit: No Status: Chronic Continue amlodipine and Coreg. Qualifiers: Hypertension type: essential hypertension Qualified Code(s): I10 - Essential (primary) hypertension (6) DM type 2 (diabetes mellitus, type 2) Current visit: No Status: Chronic Hemoglobin A1c was 11.0% on 02/27/2019. Continue Levemir and Accu-Cheks with SSI. Qualifiers: Diabetes mellitus retirement insulin use: with retirement use Diabetes mellitus complication status: with kidney complications Diabetes mellitus complication detail: with chronic kidney disease Chronic kidney disease stage: stage 3 (moderate) Qualified Code(s): E11.22 - Type 2 diabetes mellitus with diabetic chronic kidney disease; N18.3 - Chronic kidney disease, stage 3 (moderate); Z79.4 - correction (current) use of insulin (7) Anemia Current visit: Yes Status: Acute Anemia testing will be ordered in a.m. Qualifiers: Anemia type: unspecified type Qualified Code(s): D64.9 - Anemia, unspecified (8) Gout Current visit: Yes Status: Acute Check uric acid level in a.m. Qualifiers: Gout site: unspecified site Gout etiology: unspecified cause Chronicity: chronic Presence of tophus: without tophus Qualified Code(s): M1A.9XX0 - Chronic gout, unspecified, without tophus (tophi) Internal Medicine - H&P: HPI Chief complaint: MRSA with foot abscess and discitis. Admitted From: Hospital to Hospital Transfer Plans for Post Hospital Care: Home History of present illness: Mr. Green is a 74 year old male who was transferred to [facility] swing bed after April 10-May [address] [facility]. He was transferred there from [facility] inpatient after MRSA bacteremia was documented. He was found to have right foot abscess on MRI and underwent I/D. He was also found to have right psoas abscess drained by IR 04/18/2019. He had L3-4 discitis/osteomyelitis and had NSG decompression 05/01/2019. He was started on IV vancomycin, rifampin, and Zyvox initially but narrowed to only vancomycin with stop date June 06 to be followed by doxycycline 100 mg twice a day with stop date TBD after follow up with ID. PICC line was placed for initiation of IV antibiotics. PT and OT was ordered for muscle strengthening prior to returning to independent living. Past Med Surg Social Fam HX - Past Medical History Medical history: arthritis, atrial fibrillation, COPD, coronary artery disease, diabetes, hyperlipidemia, hypertension, myocardial infarction, renal disease, other Additional medical history: Gout. Diabetic ulcers. BPH. ALEXX Psychiatric history: depression - Past Surgical History Surgical History: orthopedic, other, other Additional surgical history: BACK SURGERY. THROAT SURGERY FOR SLEEP APNEA. Right Foot Toe surgery. Left hip. cardiac stents - Social History Smoking Status: Former smoker Smokeless Tobacco Status: No Alcohol use: none Drug use: none - Family History Father Living Status: Hx Family Cardiac Disorders: Yes Hx Family Endocrine Disorder: Yes Mother Living Status: Hx Family Cancer: Yes Internal Medicine - H&P: Meds Cholecalciferol (Vitamin D3) [Vitamin D3] 50,000 unit PO WD 06/10/15 [History] Warfarin [Coumadin] 2.5 mg PO DAILY 06/10/15 [History] Carvedilol [Coreg] 25 mg PO DAILY 01/03/16 [History] Hydrocodone/Acetaminophen [Hydrocodon-Acetaminophen 5-325] 1 each PO Q6H PRN 01/08/18 [History] Furosemide [Lasix] 40 mg PO DAILY 03/01/18 [History] Trazodone HCl 150 mg PO HS 03/01/18 [History] Simvastatin [Zocor] 20 mg PO HS 09/04/18 [History] DULoxetine [Cymbalta] 20 mg PO BID 01/23/19 [History] Insulin Glargine,Hum.rec.anlog [Lantus Solostar] 50 unit SQ HS 01/23/19 [History] Losartan-Hctz 100-25 mg Tab 100 mg PO DAILY 04/09/19 [History] Allergy/AdvReac Type Severity Reaction Status Date / Time ciprofloxacin [From Cipro] Allergy Itching Verified 06/15/17 17:30 meloxicam Allergy See Verified 10/29/18 07:51 Comments clindamycin AdvReac Diarrhea Verified 12/07/17 22:03 colchicine AdvReac Diarrhea Verified 03/01/18 13:58 gabapentin AdvReac Confusion Verified 03/01/18 13:59 bee stings Allergy Swelling Uncoded 10/29/18 07:50 of Lip/Tongue/Throat All Systems PM: A 10-system review of systems was performed and is negative for pertinent findings except as documented above in the HPI. Review of systems: Review of systems from his April 2019 [facility] hospitalization were reviewed and revised as below. Gen.: His weight has increased from 127.006 kg on 04/09/2019 to presently 141.067 kg. Cardiovascular: He has hypertension and atrial fibrillation. He has had DVT in the past but no pulmonary embolism. He is on Coumadin for the history of DVT and atrial fibrillation. He claims had a [place] 2016 followed by 2 stents placed. He had an echocardiogram echocardiogram 04/10/2019 showed LVEF of 55%. There was atrial fibrillation with variable heart rate and indeterminate diastolic function assessment due to AF. There was mild tricuspid regurgitation. Estimated RVSP was 35 mmHg. Interventricular septum and posterior wall thickness measurements were 1.60 and 0.80 cm respectively. A Regadenoson stress test 05/31/2017 showed LVEF of 54% with perfusion imaging negative for ischemia or infarct. Respiratory: He states he "chewed cigars" in the past but did not smoke cigarettes. He thinks he has a diagnosis of asthma and had PFTs over 5 years ago. He does not use home oxygen. GI: He has no known disorders of liver gallbladder or exocrine pancreas. He had C. difficile infection in December 2016 following clindamycin use the foot infection. 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 : He has BPH and is on Flomax. He had cystoscopy approximately 2011 without intervention. He does not have known prostate malignancy. He has had hematuria in the past. 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 Neurologic: He denies large distribution strokes or seizures. Endocrine: He was diagnosed with DM 2 approximately 2012. He has hyperlipidemia but no known thyroid disease. Hematology/oncology: He has been diagnosed with polycythemia and has followed with a pc maintenance technician/oncologist at [facility] with last visit over 2 years ago. He denies internal malignancies or other blood disorders Psychiatric: He has history of depression but no significant anxiety other mental health issues [place] skeletal: He has a diagnosis of gout. He has had left total hip replacement. He had recent right foot abscess I/D and L3-4 discitis with laminectomy during his recent [facility] stay. - Constitutional Vitals: Temp Pulse Resp BP Pulse Ox 97.3 F L 49 22 145/83 92 05/08/19 11:50 05/08/19 11:50 05/08/19 11:50 05/08/19 11:50 05/08/19 11:50 Exam: Gen.: He is a well-developed overweight male lying in bed who appears in pain on movement HEENT: Head is atraumatic and normal cephalic. Eyes: EOMI. There is no scleral icterus. Mouth: Mucosa is moist. Neck: Supple and nontender. There is no thyromegaly or adenopathy noted. Heart: Irregularly irregular without murmurs or gallops Lungs: No wheezes or crackles are heard. Abdomen: He has a large abdomen. It is nontender to palpation. Extremities: The right foot is wrapped in gauze which I did not unwrap. The dorsum of the feet and lower legs show 1+ edema bilaterally. Neurologic: Mental status: He answers questions appropriately. Cranial nerves: Smile is symmetric. Forehead wrinkles bilaterally. Tongue protrudes midline. EOMI. Motor: There is no pronator drift. Cerebellar: Finger to nose is intact bilaterally. Skin: Warm and dry. A surgical dressing is in place over the lower midline spine which I did not remove. Internal Med - H&P Results - Labs CBC & Chem 7: 05/08/19 06:22 05/08/19 06:22 Labs: Short CBC 05/08/19 Range/Units 06:22 WBC 6.3 (4.3-11.1) K/mcL Hgb 8.8 L (12.9-16.9) g/dL Hct 27.9 L (37.5-50.1) % Plt Count 286 (140-400) K/mcL Neutrophils # 3.9 (1.6-8.9) K/mcL BMP 05/08/19 06:22 Creatinine 1.92 H
[2019-05-08] MEDS ORDERED: Vancomycin (wt based) 1,000 MG VIAL IV SCH (17:00)
[2019-05-08] MEDS: *HR* Warfarin 2.5 MG TABLET PO SCH (17:04)
[2019-05-08] MEDS: Lactobacillus 1 EACH CAP.SPRINK PO SCH (19:56)
[2019-05-09] MEDS: *HR* OxyCODONE Immed Rel 5 MG TABLET PO PRN ×5 (05:20→22:13)
[2019-05-09] MEDS: Levothyroxine 25 MCG TABLET PO SCH (05:20)
[2019-05-09 06:27] LABS: Basophils % 0.3 %; Eosinophils # 0.1 K/mcL (0.0-0.6); Eosinophils % 1.5 %; Hematocrit 29.6 % (37.5-50.1); Hemoglobin 9.4 g/dL (12.9-16.9); Immature Granulocytes % 0.7 % (0-4); Lymphocytes # 1.7 K/mcL (0.6-4.6); Lymphocytes % 23.8 %; Mean Corpuscular HGB Conc 31.8 g/dL (31.6-35.5); Mean Corpuscular Hemoglobin 30.6 pg (28.0-33.3); Mean Corpuscular Volume 96.4 fL (83.0-100.0); Mean Platelet Volume 9.8 fL (9.4-12.4); Monocytes # 0.8 K/mcL (0.0-1.3); Monocytes % 10.5 %; Neutrophils # 4.6 K/mcL (1.6-8.9); Platelet Count 301 K/mcL (140-400); Red Blood Count 3.07 M/mcL (4.19-5.50); Red Cell Distribution Width 13.7 % (11.5-14.5); Segmented Neutrophils % 63.2 %; White Blood Count 7.3 K/mcL (4.3-11.1)
[2019-05-09 06:49] LABS: Albumin 2.2 g/dL (3.5-5.7); Albumin/Globulin Ratio 0.4 (1.1-2.2); Bilirubin,Total 0.6 mg/dL (0.3-1.0); Calcium 8.4 mg/dL (8.6-10.3); Globulin 5.4 g/dL (2.4-3.5); Potassium 3.7 mEq/L (3.5-5.1); Total Protein 7.6 g/dL (6.4-8.9); Uric Acid 10.4 mg/dL (2.3-7.6)
[2019-05-09] MEDS: Insulin LISPRO 300 UNITS/3 ML VIAL SQ SCH ×3 (07:46→16:27)
[2019-05-09] MEDS: Acetaminophen 325 MG TABLET PO PRN (08:01)
[2019-05-09] MEDS: Furosemide 40 MG TABLET PO SCH (08:01)
[2019-05-09] MEDS: amLODIPine 5 MG TABLET PO SCH (08:02)
[2019-05-09] MEDS: Lactobacillus 1 EACH CAP.SPRINK PO SCH ×2 (08:02→21:45)
[2019-05-09] MEDS: Cholecalciferol (D-3) 1,000 UNIT (25MCG) TABLET PO SCH (08:02)
[2019-05-09] MEDS: Sennosides/Docusate Sodium TABLET PO SCH ×2 (08:03→21:45)
[2019-05-09 09:29] LABS: Folate 9.9 ng/mL (3.0-16.0)
[2019-05-09] MEDS: Insulin DETEMIR 100 UNIT/ML X5UNITS SQ SCH ×2 (09:40→21:45)
[2019-05-09] MEDS: Budesonide/Formoterol 80/4.5 1 PUFF INH IH SCH ×2 (11:54→23:17)
--- NOTE | 2019-05-09 12:13 | Internal Med Progress Note ---
Date of Encounter: 05/09/19 Time of Encounter: 12:00 - Assessment and plan (1) MRSA bacteremia Current Visit: No Status: Acute Assessment and plan: May 09. Continue IV vancomycin through 06/06/2019 with lactobacillus. (2) Back pain Current Visit: Yes Status: Acute Assessment and plan: May 09. Status post L3-4 discitis debridement with laminectomy. Continue IV vancomycin for infection. Duragesic patch has been ordered. Continue other analgesics as needed. Qualifiers: Back pain location: low back pain Chronicity: chronic Back pain laterality: midline Sciatica presence: unspecified whether sciatica present Qualified Code(s): M54.5 - Low back pain; G89.29 - Other chronic pain (3) CKD (chronic kidney disease) stage 3, GFR 30-59 ml/min Current Visit: No Status: Chronic Assessment and plan: May 09. Monitor renal indices. (4) Atrial fibrillation Current Visit: No Status: Chronic Assessment and plan: May 09. Continue Coumadin and monitor INR. Qualifiers: Atrial fibrillation type: chronic Qualified Code(s): I48.2 - Chronic atrial fibrillation (5) Hypertension Current Visit: No Status: Chronic Assessment and plan: May 09. Continue amlodipine and Coreg. Qualifiers: Hypertension type: essential hypertension Qualified Code(s): I10 - Essential (primary) hypertension (6) DM type 2 (diabetes mellitus, type 2) Current Visit: No Status: Chronic Assessment and plan: May 09. Hemoglobin A1c was 11.0% on 02/27/2019. Continue Levemir and Accu-Cheks with SSI. Qualifiers: Diabetes mellitus alf insulin use: with termite technician use Diabetes mellitus complication status: with kidney complications Diabetes mellitus complication detail: with chronic kidney disease Chronic kidney disease stage: stage 3 (moderate) Qualified Code(s): E11.22 - Type 2 diabetes mellitus with diabetic chronic kidney disease; N18.3 - Chronic kidney disease, stage 3 (moderate); Z79.4 - middle or intermediate school principal (current) use of insulin (7) Anemia Current Visit: Yes Status: Acute Assessment and plan: May 09. Anemia testing showed iron 22, transferrin saturation 19%, transferrin 82, ferritin 138, B12 1035, and folate 9.9. A trial of ferrous sulfate and ascorbic acid will be ordered. Qualifiers: Anemia type: unspecified type Qualified Code(s): D64.9 - Anemia, unspecified (8) Gout Current Visit: Yes Status: Acute Assessment and plan: May 09. Uric acid level elevated at 10.4. He will be given prednisone. Allopurinol will be started when acute pain has lessened. Qualifiers: Gout site: unspecified site Gout etiology: unspecified cause Chronicity: chronic Presence of tophus: without tophus Qualified Code(s): M1A.9XX0 - Chronic gout, unspecified, without tophus (tophi) - Subjective Interval history: May 09. He has no new complaints. - Constitutional Vitals: Temp Pulse Resp BP Pulse Ox 98.5 F 76 18 179/79 93 05/09/19 06:28 05/09/19 06:28 05/09/19 06:28 05/09/19 06:28 05/09/19 06:28 Exam: He is resting comfortably in bed and appears in no acute distress. His affect is cheerful. Lumbar spinal incision is clean and dry without erythema or drainage. Right foot shows surgical defect healing without complications with no significant erythema or drainage. I reviewed his medications and lab result s. Internal Medicine: Result - Labs CBC & Chem 7: 05/09/19 05:27 05/09/19 05:27 Labs: Short CBC 05/09/19 Range/Units 05:27 WBC 7.3 (4.3-11.1) K/mcL Hgb 9.4 L (12.9-16.9) g/dL Hct 29.6 L (37.5-50.1) % Plt Count 301 (140-400) K/mcL Neutrophils # 4.6 (1.6-8.9) K/mcL BMP 05/09/19 05:27 Sodium 137 Potassium 3.7 Chloride 99 Carbon Dioxide 30 H BUN 29 H Creatinine 1.88 H Glucose 84 Calcium 8.4 L Liver Function 05/09/19 Range/Units 05:27 Total Bilirubin 0.6 (0.3-1.0) mg/dL AST 14 (13-39) Units/L ALT 8 (7-52) Units/L Alkaline Phosphatase 96 (34-104) Units/L Albumin 2.2 L (3.5-5.7) g/dL - ABG Interpretation ABG results: PT/INR, D-dimer PT 22.8 Seconds (9.4-12.1) H 05/08/19 06:22 Consult Discharge Plan - Plan Referrals: Deepali Nguyen CNP [Primary Care Provider] - 1 week
[2019-05-09] MEDS: tiZANidine 4 MG TABLET PO PRN (12:53)
[2019-05-09] MEDS: predniSONE 10 MG TABLET PO SCH ×2 (14:00→18:08)
[2019-05-09] MEDS: *HR* Warfarin 2.5 MG TABLET PO SCH (18:07)
[2019-05-10] MEDS: *HR* OxyCODONE Immed Rel 5 MG TABLET PO PRN ×5 (03:14→23:00)
[2019-05-10] MEDS: Levothyroxine 25 MCG TABLET PO SCH (06:39)
[2019-05-10] MEDS: Ascorbic Acid 500 MG TABLET PO SCH (06:39)
[2019-05-10] MEDS: predniSONE 10 MG TABLET PO SCH ×2 (08:38→17:39)
[2019-05-10] MEDS: Lactobacillus 1 EACH CAP.SPRINK PO SCH ×2 (08:38→20:39)
[2019-05-10] MEDS: Furosemide 40 MG TABLET PO SCH (08:39)
[2019-05-10] MEDS: Sennosides/Docusate Sodium TABLET PO SCH ×2 (08:39→20:39)
[2019-05-10] MEDS: amLODIPine 5 MG TABLET PO SCH (08:39)
[2019-05-10] MEDS: tiZANidine 4 MG TABLET PO PRN (08:39)
[2019-05-10] MEDS: Cholecalciferol (D-3) 1,000 UNIT (25MCG) TABLET PO SCH (08:39)
[2019-05-10] MEDS: Insulin LISPRO 300 UNITS/3 ML VIAL SQ SCH ×3 (08:40→17:40)
[2019-05-10] MEDS: Insulin DETEMIR 100 UNIT/ML X5UNITS SQ SCH ×2 (08:41→20:39)
[2019-05-10] MEDS: Budesonide/Formoterol 80/4.5 1 PUFF INH IH SCH ×2 (09:55→22:15)
[2019-05-10] MEDS: *HR* Warfarin 2.5 MG TABLET PO SCH (17:39)
[2019-05-11] MEDS: *HR* OxyCODONE Immed Rel 5 MG TABLET PO PRN ×5 (04:44→20:53)
[2019-05-11] MEDS: Ascorbic Acid 500 MG TABLET PO SCH (06:36)
[2019-05-11] MEDS: Levothyroxine 25 MCG TABLET PO SCH (06:36)
[2019-05-11] MEDS: Lactobacillus 1 EACH CAP.SPRINK PO SCH ×2 (08:33→20:41)
[2019-05-11] MEDS: Furosemide 40 MG TABLET PO SCH (08:33)
[2019-05-11] MEDS: predniSONE 10 MG TABLET PO SCH ×2 (08:33→16:41)
[2019-05-11] MEDS: Cholecalciferol (D-3) 1,000 UNIT (25MCG) TABLET PO SCH (08:33)
[2019-05-11] MEDS: amLODIPine 5 MG TABLET PO SCH (08:33)
[2019-05-11] MEDS: Insulin DETEMIR 100 UNIT/ML X5UNITS SQ SCH ×2 (08:34→20:42)
[2019-05-11] MEDS: Insulin LISPRO 300 UNITS/3 ML VIAL SQ SCH ×3 (08:34→17:12)
[2019-05-11] MEDS: Sennosides/Docusate Sodium TABLET PO SCH ×2 (08:35→20:42)
[2019-05-11] MEDS: Budesonide/Formoterol 80/4.5 1 PUFF INH IH SCH ×2 (09:54→22:31)
[2019-05-11] MEDS: *HR* FentaNYL PATCH 25 MCG PATCH TD SCH (11:41)
[2019-05-11] MEDS: *HR* Warfarin 2.5 MG TABLET PO SCH (16:41)
--- NOTE | 2019-05-11 17:20 | Internal Med Progress Note ---
Date of Encounter: 05/11/19 Time of Encounter: 17:10 - Assessment and plan (1) MRSA bacteremia Current Visit: No Status: Acute Assessment and plan: May 09. Continue IV vancomycin through 06/06/2019 with lactobacillus. (2) Back pain Current Visit: Yes Status: Acute Assessment and plan: May 09. Status post L3-4 discitis debridement with laminectomy. Continue IV vancomycin for infection. Duragesic patch has been ordered. Continue other analgesics as needed. Qualifiers: Back pain location: low back pain Chronicity: chronic Back pain laterality: midline Sciatica presence: unspecified whether sciatica present Qualified Code(s): M54.5 - Low back pain; G89.29 - Other chronic pain (3) CKD (chronic kidney disease) stage 3, GFR 30-59 ml/min Current Visit: No Status: Chronic Assessment and plan: May 09. Monitor renal indices. (4) Atrial fibrillation Current Visit: No Status: Chronic Assessment and plan: May 09. Continue Coumadin and monitor INR. Qualifiers: Atrial fibrillation type: chronic Qualified Code(s): I48.2 - Chronic atrial fibrillation (5) Hypertension Current Visit: No Status: Chronic Assessment and plan: May 09. Continue amlodipine and Coreg. Qualifiers: Hypertension type: essential hypertension Qualified Code(s): I10 - Essential (primary) hypertension (6) DM type 2 (diabetes mellitus, type 2) Current Visit: No Status: Chronic Assessment and plan: May 09. Hemoglobin A1c was 11.0% on 02/27/2019. Continue Levemir and Accu-Cheks with SSI. Qualifiers: Diabetes mellitus retirement insulin use: with oil heaterman use Diabetes mellitus complication status: with kidney complications Diabetes mellitus complication detail: with chronic kidney disease Chronic kidney disease stage: stage 3 (moderate) Qualified Code(s): E11.22 - Type 2 diabetes mellitus with diabetic chronic kidney disease; N18.3 - Chronic kidney disease, stage 3 (moderate); Z79.4 - tank terminal gauger (current) use of insulin (7) Anemia Current Visit: Yes Status: Acute Assessment and plan: May 09. Anemia testing showed iron 22, transferrin saturation 19%, transferrin 82, ferritin 138, B12 1035, and folate 9.9. A trial of ferrous sulfate and ascorbic acid will be ordered. Qualifiers: Anemia type: unspecified type Qualified Code(s): D64.9 - Anemia, unspecified (8) Gout Current Visit: Yes Status: Acute Assessment and plan: May 09. Uric acid level elevated at 10.4. He will be given prednisone. Allopurinol will be started when acute pain has lessened. May 11. Gout pain has lessened. Continue prednisone and start allopurinol. Qualifiers: Gout site: unspecified site Gout etiology: unspecified cause Chronicity: chronic Presence of tophus: without tophus Qualified Code(s): M1A.9XX0 - Chronic gout, unspecified, without tophus (tophi) - Subjective Interval history: May 09. He has no new complaints. May 11. He has no new complaints except slight left upper thigh/groin pa in. - Constitutional Vitals: Temp Pulse Resp BP Pulse Ox 97.7 F 70 16 162/76 96 05/11/19 16:36 05/11/19 16:36 05/11/19 16:36 05/11/19 16:36 05/11/19 16:36 Exam: He is resting fairly comfortably in bed lying on his right side. He is appropriate in conversation. His affect is overall cheerful. I reviewed his medications and lab results. Internal Medicine: Result - Labs CBC & Chem 7: 05/09/19 05:27 05/09/19 05:27 - ABG Interpretation ABG results: PT/INR, D-dimer PT 22.8 Seconds (9.4-12.1) H 05/08/19 06:22 Consult Discharge Plan - Plan Referrals: Deepali Nguyen, COLOR MAKER DYER [Primary Care Provider] - 1 week
[2019-05-12] MEDS: *HR* OxyCODONE Immed Rel 5 MG TABLET PO PRN ×4 (03:20→17:09)
[2019-05-12 06:17] LABS: Basophils % 0.2 %; Eosinophils % 0.2 %; Hematocrit 30.8 % (37.5-50.1); Hemoglobin 9.7 g/dL (12.9-16.9); Lymphocytes # 1.9 K/mcL (0.6-4.6); Lymphocytes % 20.7 %; Mean Corpuscular HGB Conc 31.5 g/dL (31.6-35.5); Mean Corpuscular Volume 95.4 fL (83.0-100.0); Mean Platelet Volume 9.2 fL (9.4-12.4); Monocytes # 0.8 K/mcL (0.0-1.3); Monocytes % 8.6 %; Neutrophils # 6.3 K/mcL (1.6-8.9); Platelet Count 288 K/mcL (140-400); Red Blood Count 3.23 M/mcL (4.19-5.50); Red Cell Distribution Width 13.6 % (11.5-14.5); Segmented Neutrophils % 69.3 %; White Blood Count 9.1 K/mcL (4.3-11.1)
[2019-05-12 06:25] LABS: Prothrombin Time 23.1 Seconds (9.4-12.1)
[2019-05-12] MEDS: Ascorbic Acid 500 MG TABLET PO SCH (06:33)
[2019-05-12] MEDS: Levothyroxine 25 MCG TABLET PO SCH (06:33)
[2019-05-12 06:38] LABS: Calcium 8.3 mg/dL (8.6-10.3); Potassium 3.7 mEq/L (3.5-5.1)
[2019-05-12] MEDS: Insulin LISPRO 300 UNITS/3 ML VIAL SQ SCH ×3 (07:38→17:08)
[2019-05-12] MEDS: predniSONE 10 MG TABLET PO SCH ×2 (08:07→17:09)
[2019-05-12] MEDS: Sennosides/Docusate Sodium TABLET PO SCH ×2 (08:07→20:58)
[2019-05-12] MEDS: Furosemide 40 MG TABLET PO SCH (08:08)
[2019-05-12] MEDS: Lactobacillus 1 EACH CAP.SPRINK PO SCH ×2 (08:08→20:57)
[2019-05-12] MEDS: Cholecalciferol (D-3) 1,000 UNIT (25MCG) TABLET PO SCH (08:08)
[2019-05-12] MEDS: amLODIPine 5 MG TABLET PO SCH (08:08)
[2019-05-12] MEDS: Insulin DETEMIR 100 UNIT/ML X5UNITS SQ SCH ×2 (08:09→20:59)
[2019-05-12] MEDS: Ondansetron ODT 4 MG TAB.RAPDIS SL PRN (08:26)
[2019-05-12] MEDS: Budesonide/Formoterol 80/4.5 1 PUFF INH IH SCH ×2 (10:28→23:00)
[2019-05-12] MEDS: tiZANidine 4 MG TABLET PO PRN (11:29)
[2019-05-12] MEDS: Acetaminophen 325 MG TABLET PO PRN ×2 (11:29→21:03)
[2019-05-12] MEDS: *HR* Warfarin 2.5 MG TABLET PO SCH (17:09)
[2019-05-13] MEDS: Ascorbic Acid 500 MG TABLET PO SCH (05:30)
[2019-05-13] MEDS: Levothyroxine 25 MCG TABLET PO SCH (05:30)
[2019-05-13] MEDS: *HR* OxyCODONE Immed Rel 5 MG TABLET PO PRN ×4 (07:56→20:11)
[2019-05-13] MEDS: Insulin LISPRO 300 UNITS/3 ML VIAL SQ SCH ×3 (07:56→17:10)
[2019-05-13] MEDS: Insulin DETEMIR 100 UNIT/ML X5UNITS SQ SCH ×2 (07:56→20:12)
[2019-05-13] MEDS: Lactobacillus 1 EACH CAP.SPRINK PO SCH ×2 (07:57→20:11)
[2019-05-13] MEDS: Cholecalciferol (D-3) 1,000 UNIT (25MCG) TABLET PO SCH (07:57)
[2019-05-13] MEDS: Sennosides/Docusate Sodium TABLET PO SCH ×2 (07:57→20:11)
[2019-05-13] MEDS: tiZANidine 4 MG TABLET PO PRN (07:57)
[2019-05-13] MEDS: Furosemide 20 MG TABLET PO SCH (07:57)
[2019-05-13] MEDS: amLODIPine 5 MG TABLET PO SCH (07:57)
[2019-05-13] MEDS: predniSONE 10 MG TABLET PO SCH (07:57)
[2019-05-13] MEDS: Acetaminophen 325 MG TABLET PO PRN (09:41)
[2019-05-13] MEDS: Budesonide/Formoterol 80/4.5 1 PUFF INH IH SCH ×2 (10:00→22:55)
--- NOTE | 2019-05-13 11:33 | Internal Med Progress Note ---
Date of Encounter: 05/13/19 Time of Encounter: 11:25 - Assessment and plan (1) MRSA bacteremia Current Visit: No Status: Acute Assessment and plan: May 09. Continue IV vancomycin through 06/06/2019 with lactobacillus. (2) Back pain Current Visit: Yes Status: Acute Assessment and plan: May 09. Status post L3-4 discitis debridement with laminectomy. Continue IV vancomycin for infection. Duragesic patch has been ordered. Continue other analgesics as needed. Qualifiers: Back pain location: low back pain Chronicity: chronic Back pain laterality: midline Sciatica presence: unspecified whether sciatica present Qualified Code(s): M54.5 - Low back pain; G89.29 - Other chronic pain (3) CKD (chronic kidney disease) stage 3, GFR 30-59 ml/min Current Visit: No Status: Chronic Assessment and plan: May 09. Monitor renal indices. (4) Atrial fibrillation Current Visit: No Status: Chronic Assessment and plan: May 09. Continue Coumadin and monitor INR. Qualifiers: Atrial fibrillation type: chronic Qualified Code(s): I48.2 - Chronic atrial fibrillation (5) Hypertension Current Visit: No Status: Chronic Assessment and plan: May 09. Continue amlodipine and Coreg. Qualifiers: Hypertension type: essential hypertension Qualified Code(s): I10 - Essential (primary) hypertension (6) DM type 2 (diabetes mellitus, type 2) Current Visit: No Status: Chronic Assessment and plan: May 09. Hemoglobin A1c was 11.0% on 02/27/2019. Continue Levemir and Accu-Cheks with SSI. Qualifiers: Diabetes mellitus chcf insulin use: with lobsterman use Diabetes mellitus complication status: with kidney complications Diabetes mellitus complication detail: with chronic kidney disease Chronic kidney disease stage: stage 3 (moderate) Qualified Code(s): E11.22 - Type 2 diabetes mellitus with diabetic chronic kidney disease; N18.3 - Chronic kidney disease, stage 3 (moderate); Z79.4 - superintendent terminal (current) use of insulin (7) Anemia Current Visit: Yes Status: Acute Assessment and plan: May 09. Anemia testing showed iron 22, transferrin saturation 19%, transferrin 82, ferritin 138, B12 1035, and folate 9.9. A trial of ferrous sulfate and ascorbic acid will be ordered. Qualifiers: Anemia type: unspecified type Qualified Code(s): D64.9 - Anemia, unspecified (8) Gout Current Visit: Yes Status: Acute Assessment and plan: May 09. Uric acid level elevated at 10.4. He will be given prednisone. Allopurinol will be started when acute pain has lessened. May 11. Gout pain has lessened. Continue prednisone and start allopurinol. May 13. Pain has further lessened. Decrease prednisone to 10 mg daily. Continue allopurinol. Qualifiers: Gout site: unspecified site Gout etiology: unspecified cause Chronicity: chronic Presence of tophus: without tophus Qualified Code(s): M1A.9XX0 - Chronic gout, unspecified, without tophus (tophi) - Subjective Interval history: May 09. He has no new complaints. May 11. He has no new complaints except slight left upper thigh/groin pain. May 13. He has no new complaints and feels better with less pain. - Constitutional Vitals: Temp Pulse Resp BP Pulse Ox 98.4 F 76 16 188/95 95 05/13/19 06:50 05/13/19 06:50 05/13/19 06:50 05/13/19 06:50 05/13/19 06:50 Exam: He is resting comfortably in bed and appears in no acute distress. His affect is overall cheerful. I reviewed his medications and lab results. Internal Medicine: Result - Labs CBC & Chem 7: 05/12/19 05:48 05/12/19 05:48 - ABG Interpretation ABG results: PT/INR, D-dimer PT 23.1 Seconds (9.4-12.1) H 05/12/19 05:48 - Impressions Impressions Chest X-Ray 05/13/19 09:39 IMPRESSION: Left upper extremity PICC terminates over the distal left brachiocephalic vein. Small bibasilar pulmonary opacity with probable left pleural effusion. D/ / Salbador Perez MD / Salbador Perez MD Interpreting Provider: Salbador Perez MD Consult Discharge Plan - Plan Referrals: Deepali Nguyen, NEWS ASSIGNMENT EDITOR [Primary Care Provider] - 1 week
[2019-05-13] MEDS: Acetaminophen 325 MG TABLET PO SCH ×2 (12:11→17:09)
[2019-05-13] MEDS: Baclofen 10 MG TABLET PO PRN (15:14)
[2019-05-13] MEDS: *HR* Warfarin 2.5 MG TABLET PO SCH (17:11)
[2019-05-14] MEDS: Acetaminophen 325 MG TABLET PO SCH ×4 (00:08→17:01)
[2019-05-14] MEDS: Levothyroxine 25 MCG TABLET PO SCH (05:39)
[2019-05-14] MEDS: Ascorbic Acid 500 MG TABLET PO SCH (05:39)
[2019-05-14] MEDS: Lactobacillus 1 EACH CAP.SPRINK PO SCH ×2 (09:06→20:51)
[2019-05-14] MEDS: amLODIPine 5 MG TABLET PO SCH (09:06)
[2019-05-14] MEDS: Cholecalciferol (D-3) 1,000 UNIT (25MCG) TABLET PO SCH (09:06)
[2019-05-14] MEDS: Sennosides/Docusate Sodium TABLET PO SCH ×2 (09:06→20:51)
[2019-05-14] MEDS: predniSONE 10 MG TABLET PO SCH (09:06)
[2019-05-14] MEDS: Furosemide 20 MG TABLET PO SCH (09:07)
[2019-05-14] MEDS: Insulin DETEMIR 100 UNIT/ML X5UNITS SQ SCH ×2 (09:10→20:51)
[2019-05-14] MEDS: Insulin LISPRO 300 UNITS/3 ML VIAL SQ SCH ×3 (09:10→17:01)
[2019-05-14] MEDS: *HR* OxyCODONE Immed Rel 5 MG TABLET PO PRN ×3 (09:22→20:51)
[2019-05-14] MEDS: *HR* FentaNYL PATCH 25 MCG PATCH TD SCH (12:20)
[2019-05-14] MEDS: *HR* Warfarin 5 MG TABLET PO SCH (17:01)
[2019-05-15] MEDS: Acetaminophen 325 MG TABLET PO SCH ×4 (00:58→18:09)
[2019-05-15] MEDS: Ascorbic Acid 500 MG TABLET PO SCH (05:35)
[2019-05-15] MEDS: Levothyroxine 25 MCG TABLET PO SCH (05:35)
[2019-05-15] MEDS: Ondansetron ODT 4 MG TAB.RAPDIS SL PRN (06:27)
[2019-05-15] MEDS: Cholecalciferol (D-3) 1,000 UNIT (25MCG) TABLET PO SCH (07:37)
[2019-05-15] MEDS: Sennosides/Docusate Sodium TABLET PO SCH ×2 (07:37→20:25)
[2019-05-15] MEDS: amLODIPine 5 MG TABLET PO SCH (07:38)
[2019-05-15] MEDS: Lactobacillus 1 EACH CAP.SPRINK PO SCH ×2 (07:38→20:25)
[2019-05-15] MEDS: Furosemide 20 MG TABLET PO SCH (07:38)
[2019-05-15] MEDS: *HR* OxyCODONE Immed Rel 5 MG TABLET PO PRN ×4 (07:38→20:26)
[2019-05-15] MEDS: predniSONE 10 MG TABLET PO SCH (07:38)
[2019-05-15] MEDS: Insulin LISPRO 300 UNITS/3 ML VIAL SQ SCH ×3 (07:42→16:33)
[2019-05-15] MEDS: Insulin DETEMIR 100 UNIT/ML X5UNITS SQ SCH ×2 (11:56→20:26)
--- NOTE | 2019-05-15 12:23 | Internal Med Progress Note ---
Date of Encounter: 05/15/19 Time of Encounter: 12:15 - Assessment and plan (1) MRSA bacteremia Current Visit: No Status: Acute Assessment and plan: May 09. Continue IV vancomycin through 06/06/2019 with lactobacillus. (2) Back pain Current Visit: Yes Status: Acute Assessment and plan: May 09. Status post L3-4 discitis debridement with laminectomy. Continue IV vancomycin for infection. Duragesic patch has been ordered. Continue other analgesics as needed. Qualifiers: Back pain location: low back pain Chronicity: chronic Back pain laterality: midline Sciatica presence: unspecified whether sciatica present Qualified Code(s): M54.5 - Low back pain; G89.29 - Other chronic pain (3) CKD (chronic kidney disease) stage 3, GFR 30-59 ml/min Current Visit: No Status: Chronic Assessment and plan: May 09. Monitor renal indices. May 15. Recheck labs in a.m. (4) Atrial fibrillation Current Visit: No Status: Chronic Assessment and plan: May 09. Continue Coumadin and monitor INR. May 15. Check INR in a.m. Qualifiers: Atrial fibrillation type: chronic Qualified Code(s): I48.2 - Chronic atrial fibrillation (5) Hypertension Current Visit: No Status: Chronic Assessment and plan: May 09. Continue amlodipine and Coreg. Qualifiers: Hypertension type: essential hypertension Qualified Code(s): I10 - Essential (primary) hypertension (6) DM type 2 (diabetes mellitus, type 2) Current Visit: No Status: Chronic Assessment and plan: May 09. Hemoglobin A1c was 11.0% on 02/27/2019. Continue Levemir and Accu-Cheks with SSI. May 15. Blood sugars acceptable. Continue present Rx. Qualifiers: Diabetes mellitus terminal press operator insulin use: with assisted use Diabetes mellitus complication status: with kidney complications Diabetes mellitus complication detail: with chronic kidney disease Chronic kidney disease stage: stage 3 (moderate) Qualified Code(s): E11.22 - Type 2 diabetes mellitus with diabetic chronic kidney disease; N18.3 - Chronic kidney disease, stage 3 (moderate); Z79.4 - care home (current) use of insulin (7) Anemia Current Visit: Yes Status: Acute Assessment and plan: May 09. Anemia testing showed iron 22, transferrin saturation 19%, transferrin 82, ferritin 138, B12 1035, and folate 9.9. A trial of ferrous sulfate and ascorbic acid will be ordered. May 15. Recheck labs in a.m. Qualifiers: Anemia type: unspecified type Qualified Code(s): D64.9 - Anemia, unspecified (8) Gout Current Visit: Yes Status: Acute Assessment and plan: May 09. Uric acid level elevated at 10.4. He will be given prednisone. Allopurinol will be started when acute pain has lessened. May 11. Gout pain has lessened. Continue prednisone and start allopurinol. May 13. Pain has further lessened. Decrease prednisone to 10 mg daily. Continue allopurinol. May 15. Check labs in a.m. Qualifiers: Gout site: unspecified site Gout etiology: unspecified cause Chronicity: chronic Presence of tophus: without tophus Qualified Code(s): M1A.9XX0 - Chronic gout, unspecified, without tophus (tophi) - Subjective Interval history: May 09. He has no new complaints. May 11. He has no new complaints except slight left upper thigh/groin pain. May 13. He has no new complaints and feels better with less pain. May 15. He has no new complaints. He denies pain in this foot. His hand pain has continued to lessen. He states low back pain is slightly lessened. - Constitutional Vitals: Temp Pulse Resp BP Pulse Ox 97.8 F 84 17 207/90 93 05/15/19 07:08 05/15/19 07:08 05/15/19 07:08 05/15/19 07:08 05/15/19 07:08 Exam: He is resting comfortably in bed and appears in no acute distress. His affect is bright and cheerful. I reviewed his medications and lab results. Internal Medicine: Result - Labs CBC & Chem 7: 05/12/19 05:48 05/12/19 05:48 - ABG Interpretation ABG results: PT/INR, D-dimer PT 23.1 Seconds (9.4-12.1) H 05/12/19 05:48 Consult Discharge Plan - Plan Referrals: Deepali Nguyen, CHARGE NURSE [Primary Care Provider] - 1 week
[2019-05-15] MEDS: *HR* Warfarin 2.5 MG TABLET PO SCH (18:09)
[2019-05-16] MEDS: Acetaminophen 325 MG TABLET PO SCH ×4 (01:07→16:51)
[2019-05-16] MEDS: *HR* OxyCODONE Immed Rel 5 MG TABLET PO PRN ×5 (01:51→21:31)
[2019-05-16] MEDS: Ascorbic Acid 500 MG TABLET PO SCH (05:51)
[2019-05-16] MEDS: Levothyroxine 25 MCG TABLET PO SCH (05:51)
[2019-05-16 06:15] LABS: Basophils % 0.3 %; Eosinophils # 0.1 K/mcL (0.0-0.6); Hematocrit 28.9 % (37.5-50.1); Immature Granulocytes % 0.5 % (0-4); Lymphocytes # 2.1 K/mcL (0.6-4.6); Lymphocytes % 21.3 %; Mean Corpuscular HGB Conc 31.1 g/dL (31.6-35.5); Mean Corpuscular Hemoglobin 30.4 pg (28.0-33.3); Mean Corpuscular Volume 97.6 fL (83.0-100.0); Mean Platelet Volume 9.3 fL (9.4-12.4); Monocytes # 0.9 K/mcL (0.0-1.3); Monocytes % 9.4 %; Neutrophils # 6.6 K/mcL (1.6-8.9); Platelet Count 259 K/mcL (140-400); Red Blood Count 2.96 M/mcL (4.19-5.50); Red Cell Distribution Width 14.4 % (11.5-14.5); Segmented Neutrophils % 67.5 %; White Blood Count 9.8 K/mcL (4.3-11.1)
[2019-05-16 06:26] LABS: Prothrombin Time 23.1 Seconds (9.4-12.1)
[2019-05-16 06:46] LABS: Calcium 8.1 mg/dL (8.6-10.3); Potassium 3.6 mEq/L (3.5-5.1); Uric Acid 8.7 mg/dL (2.3-7.6)
[2019-05-16] MEDS: amLODIPine 5 MG TABLET PO SCH (06:55)
[2019-05-16] MEDS: Insulin LISPRO 300 UNITS/3 ML VIAL SQ SCH ×3 (07:39→16:50)
[2019-05-16] MEDS: Sennosides/Docusate Sodium TABLET PO SCH ×2 (08:51→21:16)
[2019-05-16] MEDS: Furosemide 20 MG TABLET PO SCH (08:51)
[2019-05-16] MEDS: Lactobacillus 1 EACH CAP.SPRINK PO SCH ×2 (08:52→21:16)
[2019-05-16] MEDS: Cholecalciferol (D-3) 1,000 UNIT (25MCG) TABLET PO SCH (08:52)
[2019-05-16] MEDS: predniSONE 10 MG TABLET PO SCH (08:52)
[2019-05-16] MEDS: Insulin DETEMIR 100 UNIT/ML X5UNITS SQ SCH ×2 (08:53→21:16)
[2019-05-16] MEDS: *HR* Warfarin 2.5 MG TABLET PO SCH (16:51)
[2019-05-17] MEDS: Acetaminophen 325 MG TABLET PO SCH ×5 (00:50→23:18)
[2019-05-17] MEDS: Ondansetron ODT 4 MG TAB.RAPDIS SL PRN (04:26)
[2019-05-17] MEDS: *HR* OxyCODONE Immed Rel 5 MG TABLET PO PRN ×4 (04:26→23:18)
[2019-05-17] MEDS: Levothyroxine 25 MCG TABLET PO SCH (06:45)
[2019-05-17] MEDS: Ascorbic Acid 500 MG TABLET PO SCH (06:45)
[2019-05-17] MEDS: Insulin LISPRO 300 UNITS/3 ML VIAL SQ SCH ×3 (08:07→17:36)
[2019-05-17] MEDS: Cholecalciferol (D-3) 1,000 UNIT (25MCG) TABLET PO SCH (08:31)
[2019-05-17] MEDS: amLODIPine 5 MG TABLET PO SCH ×2 (08:31→20:20)
[2019-05-17] MEDS: Sennosides/Docusate Sodium TABLET PO SCH ×2 (08:31→20:20)
[2019-05-17] MEDS: Lactobacillus 1 EACH CAP.SPRINK PO SCH ×2 (08:31→20:20)
[2019-05-17] MEDS: predniSONE 10 MG TABLET PO SCH (08:32)
[2019-05-17] MEDS: Furosemide 20 MG TABLET PO SCH (08:32)
[2019-05-17] MEDS: Insulin DETEMIR 100 UNIT/ML X5UNITS SQ SCH ×2 (08:38→20:21)
[2019-05-17] MEDS: *HR* FentaNYL PATCH 25 MCG PATCH TD SCH (11:19)
[2019-05-17] MEDS: *HR* Warfarin 2.5 MG TABLET PO SCH (17:36)
[2019-05-18] MEDS: Levothyroxine 25 MCG TABLET PO SCH (06:17)
[2019-05-18] MEDS: Ascorbic Acid 500 MG TABLET PO SCH (06:17)
[2019-05-18] MEDS: Acetaminophen 325 MG TABLET PO SCH ×3 (06:17→17:06)
[2019-05-18] MEDS: Insulin LISPRO 300 UNITS/3 ML VIAL SQ SCH ×3 (08:28→17:07)
[2019-05-18] MEDS: amLODIPine 5 MG TABLET PO SCH ×2 (08:37→20:25)
[2019-05-18] MEDS: Furosemide 20 MG TABLET PO SCH (08:37)
[2019-05-18] MEDS: Sennosides/Docusate Sodium TABLET PO SCH ×2 (08:37→20:26)
[2019-05-18] MEDS: Insulin DETEMIR 100 UNIT/ML X5UNITS SQ SCH ×2 (08:37→20:26)
[2019-05-18] MEDS: predniSONE 10 MG TABLET PO SCH (08:38)
[2019-05-18] MEDS: Cholecalciferol (D-3) 1,000 UNIT (25MCG) TABLET PO SCH (08:38)
[2019-05-18] MEDS: Lactobacillus 1 EACH CAP.SPRINK PO SCH ×2 (08:38→20:25)
[2019-05-18] MEDS: *HR* OxyCODONE Immed Rel 5 MG TABLET PO PRN ×3 (08:40→20:33)
--- NOTE | 2019-05-18 15:07 | Internal Med Progress Note ---
Date of Encounter: 05/18/19 Time of Encounter: 15:00 - Assessment and plan (1) MRSA bacteremia Current Visit: No Status: Acute Assessment and plan: May 09. Continue IV vancomycin through 06/06/2019 with lactobacillus. (2) Back pain Current Visit: Yes Status: Acute Assessment and plan: May 09. Status post L3-4 discitis debridement with laminectomy. Continue IV vancomycin for infection. Duragesic patch has been ordered. Continue other analgesics as needed. Qualifiers: Back pain location: low back pain Chronicity: chronic Back pain laterality: midline Sciatica presence: unspecified whether sciatica present Qualified Code(s): M54.5 - Low back pain; G89.29 - Other chronic pain (3) CKD (chronic kidney disease) stage 3, GFR 30-59 ml/min Current Visit: No Status: Chronic Assessment and plan: May 09. Monitor renal indices. May 15. Recheck labs in a.m. (4) Atrial fibrillation Current Visit: No Status: Chronic Assessment and plan: May 09. Continue Coumadin and monitor INR. May 15. Check INR in a.m. May 18. INR was 2.0 May 16. Continue to monitor periodically. Qualifiers: Atrial fibrillation type: chronic Qualified Code(s): I48.2 - Chronic atrial fibrillation (5) Hypertension Current Visit: No Status: Chronic Assessment and plan: May 09. Continue amlodipine and Coreg. May 18. Inadequately controlled. Add Cardura and continue amlodipine and Coreg. Qualifiers: Hypertension type: essential hypertension Qualified Code(s): I10 - Essential (primary) hypertension (6) DM type 2 (diabetes mellitus, type 2) Current Visit: No Status: Chronic Assessment and plan: May 09. Hemoglobin A1c was 11.0% on 02/27/2019. Continue Levemir and Accu-Cheks with SSI. May 15. Blood sugars acceptable. Continue present Rx. Qualifiers: Diabetes mellitus longterm insulin use: with longterm use Diabetes mellitus complication status: with kidney complications Diabetes mellitus complication detail: with chronic kidney disease Chronic kidney disease stage: stage 3 (moderate) Qualified Code(s): E11.22 - Type 2 diabetes mellitus with diabetic chronic kidney disease; N18.3 - Chronic kidney disease, stage 3 (moderate); Z79.4 - USP (current) use of insulin (7) Anemia Current Visit: Yes Status: Acute Assessment and plan: May 09. Anemia testing showed iron 22, transferrin saturation 19%, transferrin 82, ferritin 138, B12 1035, and folate 9.9. A trial of ferrous sulfate and ascorbic acid will be ordered. May 15. Recheck labs in a.m. May 18. Hemoglobin minimally changed to 9.0 on May 16. Continue to monitor periodically. Qualifiers: Anemia type: unspecified type Qualified Code(s): D64.9 - Anemia, unspecified (8) Gout Current Visit: Yes Status: Acute Assessment and plan: May 09. Uric acid level elevated at 10.4. He will be given prednisone. Allopurinol will be started when acute pain has lessened. May 11. Gout pain has lessened. Continue prednisone and start allopurinol . May 13. Pain has further lessened. Decrease prednisone to 10 mg daily. Continue allopurinol. May 15. Check labs in a.m. May 18. Uric acid level decreased 8.7 on May 16. Continue to monitor. Qualifiers: Gout site: unspecified site Gout etiology: unspecified cause Chronicity: chronic Presence of tophus: without tophus Qualified Code(s): M1A.9XX0 - Chronic gout, unspecified, without tophus (tophi) - Subjective Interval history: May 09. He has no new complaints. May 11. He has no new complaints except slight left upper thigh/groin pain. May 13. He has no new complaints and feels better with less pain. May 15. He has no new complaints. He denies pain in this foot. His hand pain has continued to lessen. He states low back pain is slightly lessened. May 18. He has no new complaints. He complains of ongoing pain in his legs. His hand pain has further lessened. - Constitutional Vitals: Temp Pulse Resp BP Pulse Ox 98.2 F 66 20 200/82 95 05/18/19 06:57 05/18/19 06:57 05/18/19 06:57 05/18/19 06:57 05/18/19 06:57 Exam: He is resting comfortably in bed and appears in no acute distress. His affect is cheerful. Extremities show trace pitting edema of his lower legs. The right foot is wrapped in gauze and I did not unwrap it. I reviewed his medications and lab results. Internal Medicine: Result - Labs CBC & Chem 7: 05/16/19 06:00 05/16/19 06:00 - ABG Interpretation ABG results: PT/INR, D-dimer PT 23.1 Seconds (9.4-12.1) H 05/16/19 06:00 Consult Discharge Plan - Plan Referrals: Deepali Nguyen, HEAD SUGAR REPROCESS OPERATOR [Primary Care Provider] - 1 week
[2019-05-18] MEDS: *HR* Warfarin 2.5 MG TABLET PO SCH (17:06)
[2019-05-19] MEDS: Acetaminophen 325 MG TABLET PO SCH ×4 (00:52→17:16)
[2019-05-19] MEDS: Levothyroxine 25 MCG TABLET PO SCH (06:13)
[2019-05-19] MEDS: Ascorbic Acid 500 MG TABLET PO SCH (06:13)
[2019-05-19 08:13] LABS: Basophils % 0.5 %; Eosinophils # 0.1 K/mcL (0.0-0.6); Eosinophils % 1.1 %; Hematocrit 27.8 % (37.5-50.1); Hemoglobin 8.8 g/dL (12.9-16.9); Immature Granulocytes % 0.3 % (0-4); Lymphocytes # 2.2 K/mcL (0.6-4.6); Lymphocytes % 32.6 %; Mean Corpuscular HGB Conc 31.7 g/dL (31.6-35.5); Mean Corpuscular Hemoglobin 30.3 pg (28.0-33.3); Mean Corpuscular Volume 95.9 fL (83.0-100.0); Mean Platelet Volume 9.4 fL (9.4-12.4); Monocytes # 0.7 K/mcL (0.0-1.3); Monocytes % 9.8 %; Neutrophils # 3.7 K/mcL (1.6-8.9); Platelet Count 240 K/mcL (140-400); Red Cell Distribution Width 14.5 % (11.5-14.5); Segmented Neutrophils % 55.7 %; White Blood Count 6.6 K/mcL (4.3-11.1)
[2019-05-19 08:22] LABS: Prothrombin Time 22.4 Seconds (9.4-12.1)
[2019-05-19 08:57] LABS: Calcium 8.3 mg/dL (8.6-10.3); Potassium 3.9 mEq/L (3.5-5.1); Uric Acid 7.9 mg/dL (2.3-7.6)
[2019-05-19] MEDS: *HR* OxyCODONE Immed Rel 5 MG TABLET PO PRN ×3 (09:10→17:15)
[2019-05-19] MEDS: Lactobacillus 1 EACH CAP.SPRINK PO SCH ×2 (09:10→20:01)
[2019-05-19] MEDS: Cholecalciferol (D-3) 1,000 UNIT (25MCG) TABLET PO SCH (09:10)
[2019-05-19] MEDS: Sennosides/Docusate Sodium TABLET PO SCH ×2 (09:11→20:02)
[2019-05-19] MEDS: predniSONE 10 MG TABLET PO SCH (09:11)
[2019-05-19] MEDS: Furosemide 20 MG TABLET PO SCH (09:11)
[2019-05-19] MEDS: amLODIPine 5 MG TABLET PO SCH ×2 (09:11→20:06)
[2019-05-19] MEDS: Insulin LISPRO 300 UNITS/3 ML VIAL SQ SCH ×3 (09:12→17:21)
[2019-05-19] MEDS: Insulin DETEMIR 100 UNIT/ML X5UNITS SQ SCH ×2 (09:16→20:03)
[2019-05-19] MEDS: *HR* Warfarin 2.5 MG TABLET PO SCH (17:19)
[2019-05-20] MEDS: Ascorbic Acid 500 MG TABLET PO SCH (06:29)
[2019-05-20] MEDS: Acetaminophen 325 MG TABLET PO SCH ×5 (06:29→23:05)
[2019-05-20] MEDS: Levothyroxine 25 MCG TABLET PO SCH (07:00)
[2019-05-20] MEDS: Furosemide 20 MG TABLET PO SCH (08:05)
[2019-05-20] MEDS: *HR* OxyCODONE Immed Rel 5 MG TABLET PO PRN ×3 (08:05→21:05)
[2019-05-20] MEDS: Lactobacillus 1 EACH CAP.SPRINK PO SCH ×2 (08:05→21:06)
[2019-05-20] MEDS: Cholecalciferol (D-3) 1,000 UNIT (25MCG) TABLET PO SCH (08:05)
[2019-05-20] MEDS: Sennosides/Docusate Sodium TABLET PO SCH ×2 (08:05→21:06)
[2019-05-20] MEDS: predniSONE 10 MG TABLET PO SCH (08:05)
[2019-05-20] MEDS: Insulin DETEMIR 100 UNIT/ML X5UNITS SQ SCH ×2 (08:06→21:03)
[2019-05-20] MEDS: amLODIPine 5 MG TABLET PO SCH ×2 (08:06→21:06)
[2019-05-20] MEDS: Insulin LISPRO 300 UNITS/3 ML VIAL SQ SCH ×3 (08:06→18:08)
[2019-05-20] MEDS: *HR* FentaNYL PATCH 25 MCG PATCH TD SCH (16:09)
[2019-05-20] MEDS: *HR* Warfarin 2.5 MG TABLET PO SCH (18:13)
[2019-05-20] MEDS: Baclofen 10 MG TABLET PO PRN (21:06)
[2019-05-20] MEDS: tiZANidine 4 MG TABLET PO PRN (23:05)
[2019-05-21] MEDS: Acetaminophen 325 MG TABLET PO SCH ×3 (06:43→16:55)
[2019-05-21] MEDS: Ascorbic Acid 500 MG TABLET PO SCH (06:44)
[2019-05-21] MEDS: Levothyroxine 25 MCG TABLET PO SCH (06:44)
[2019-05-21] MEDS: Sennosides/Docusate Sodium TABLET PO SCH ×2 (08:35→22:05)
[2019-05-21] MEDS: amLODIPine 5 MG TABLET PO SCH ×2 (08:35→22:05)
[2019-05-21] MEDS: predniSONE 10 MG TABLET PO SCH (08:36)
[2019-05-21] MEDS: tiZANidine 4 MG TABLET PO PRN ×2 (08:36→12:24)
[2019-05-21] MEDS: Lactobacillus 1 EACH CAP.SPRINK PO SCH ×2 (08:36→22:05)
[2019-05-21] MEDS: Cholecalciferol (D-3) 1,000 UNIT (25MCG) TABLET PO SCH (08:36)
[2019-05-21] MEDS: Furosemide 20 MG TABLET PO SCH (08:36)
[2019-05-21] MEDS: Insulin LISPRO 300 UNITS/3 ML VIAL SQ SCH ×3 (08:37→16:56)
[2019-05-21] MEDS: Insulin DETEMIR 100 UNIT/ML X5UNITS SQ SCH ×2 (08:37→22:05)
[2019-05-21] MEDS: *HR* Warfarin 5 MG TABLET PO SCH (16:55)
--- NOTE | 2019-05-21 18:14 | Internal Med Progress Note ---
Date of Encounter: 05/21/19 Time of Encounter: 18:00 - Assessment and plan (1) MRSA bacteremia Current Visit: No Status: Acute Assessment and plan: May 09. Continue IV vancomycin through 06/06/2019 with lactobacillus. (2) Back pain Current Visit: Yes Status: Acute Assessment and plan: May 09. Status post L3-4 discitis debridement with laminectomy. Continue IV vancomycin for infection. Duragesic patch has been ordered. Continue other analgesics as needed. Qualifiers: Back pain location: low back pain Chronicity: chronic Back pain laterality: midline Sciatica presence: unspecified whether sciatica present Qualified Code(s): M54.5 - Low back pain; G89.29 - Other chronic pain (3) CKD (chronic kidney disease) stage 3, GFR 30-59 ml/min Current Visit: No Status: Chronic Assessment and plan: May 09. Monitor renal indices. May 15. Recheck labs in a.m. May 21. BUN and creatinine were 35 and 1.93 respectively with estimated GFR 34 on 05/19/2019. Continue to monitor periodically. (4) Atrial fibrillation Current Visit: No Status: Chronic Assessment and plan: May 09. Continue Coumadin and monitor INR. May 15. Check INR in a.m. May 18. INR was 2.0 May 16. Continue to monitor periodically. May 21. Recheck labs in a.m. Qualifiers: Atrial fibrillation type: chronic Qualified Code(s): I48.2 - Chronic atrial fibrillation (5) Hypertension Current Visit: No Status: Chronic Assessment and plan: May 09. Continue amlodipine and Coreg. May 18. Inadequately controlled. Add Cardura and continue amlodipine and Coreg. May 21. Blood pressure improves. Continue present Rx. Qualifiers: Hypertension type: essential hypertension Qualified Code(s): I10 - Essential (primary) hypertension (6) DM type 2 (diabetes mellitus, type 2) Current Visit: No Status: Chronic Assessment and plan: May 09. Hemoglobin A1c was 11.0% on 02/27/2019. Continue Levemir and Accu-Cheks with SSI. May 15. Blood sugars acceptable. Continue present Rx. Qualifiers: Diabetes mellitus custodial insulin use: with custodial use Diabetes mellitus complication status: with kidney complications Diabetes mellitus complication detail: with chronic kidney disease Chronic kidney disease stage: stage 3 (moderate) Qualified Code(s): E11.22 - Type 2 diabetes mellitus with diabetic chronic kidney disease; N18.3 - Chronic kidney disease, stage 3 (moderate); Z79.4 - supervisor intermediates (current) use of insulin (7) Anemia Current Visit: Yes Status: Acute Assessment and plan: May 09. Anemia testing showed iron 22, transferrin saturation 19%, transferrin 82, ferritin 138, B12 1035, and folate 9.9. A trial of ferrous sulfate and ascorbic acid will be ordered. May 15. Recheck labs in a.m. May 18. Hemoglobin minimally changed to 9.0 on May 16. Continue to monitor periodically. May 21. Recheck labs in a.m. Qualifiers: Anemia type: unspecified type Qualified Code(s): D64.9 - Anemia, unspecified (8) Gout Current Visit: Yes Status: Acute Assessment and plan: May 09. Uric acid level elevated at 10.4. He will be given prednisone. Allopurinol will be started when acute pain has lessened. May 11. Gout pain has lessened. Continue prednisone and start allopurinol. May 13. Pain has further lessened. Decrease prednisone to 10 mg daily. Continue allopurinol. May 15. Check labs in a.m. May 18. Uric acid level decreased 8.7 on May 16. Continue to monit or. May 21. Recheck labs in a.m. Qualifiers: Gout site: unspecified site Gout etiology: unspecified cause Chronicity: chronic Presence of tophus: without tophus Qualified Code(s): M1A.9XX0 - Chronic gout, unspecified, without tophus (tophi) - Subjective Interval history: May 09. He has no new complaints. May 11. He has no new complaints except slight left upper thigh/groin pain. May 13. He has no new complaints and feels better with less pain. May 15. He has no new complaints. He denies pain in this foot. His hand pain has continued to lessen. He states low back pain is slightly lessened. May 18. He has no new complaints. He complains of ongoing pain in his legs. His hand pain has further lessened. May 21. He has no new complaints. He states he is having minimal pain in his hands. He was seen in [place] yesterday by neurosurgeon and orthopedic ahmadi rgenya with good reports. - Constitutional Vitals: Temp Pulse Resp BP Pulse Ox 98.1 F 66 18 153/83 92 05/21/19 07:23 05/21/19 07:23 05/21/19 07:23 05/21/19 07:23 05/21/19 07:23 Exam: He is resting comfortably in bed and appears in no acute distress. His affect is bright and cheerful. Extremities show trace pitting edema. Did not unwrap the dressing on his right foot. I reviewed his medications and lab results. Internal Medicine: Result - Labs CBC & Chem 7: 05/19/19 07:45 05/19/19 07:45 - ABG Interpretation ABG results: PT/INR, D-dimer PT 22.4 Seconds (9.4-12.1) H 05/19/19 07:45 Consult Discharge Plan - Plan Referrals: Deepali Nguyen, FURNACE COMBUSTION ANALYST [Primary Care Provider] - 1 week
[2019-05-22] MEDS: Acetaminophen 325 MG TABLET PO SCH ×4 (00:46→17:40)
[2019-05-22] MEDS: Ascorbic Acid 500 MG TABLET PO SCH (06:26)
[2019-05-22] MEDS: Levothyroxine 25 MCG TABLET PO SCH (06:26)
[2019-05-22 06:55] LABS: Basophils % 0.4 %; Eosinophils # 0.1 K/mcL (0.0-0.6); Eosinophils % 1.6 %; Hematocrit 29.6 % (37.5-50.1); Hemoglobin 9.3 g/dL (12.9-16.9); Immature Granulocytes % 0.3 % (0-4); Lymphocytes # 2.2 K/mcL (0.6-4.6); Lymphocytes % 31.6 %; Mean Corpuscular HGB Conc 31.4 g/dL (31.6-35.5); Mean Corpuscular Hemoglobin 30.3 pg (28.0-33.3); Mean Corpuscular Volume 96.4 fL (83.0-100.0); Mean Platelet Volume 9.4 fL (9.4-12.4); Monocytes # 0.6 K/mcL (0.0-1.3); Platelet Count 238 K/mcL (140-400); Red Blood Count 3.07 M/mcL (4.19-5.50); Red Cell Distribution Width 14.6 % (11.5-14.5); Segmented Neutrophils % 57.1 %; White Blood Count 7.1 K/mcL (4.3-11.1)
[2019-05-22 07:13] LABS: INR 2.1; Prothrombin Time 24.3 Seconds (9.4-12.1)
[2019-05-22 07:15] LABS: Calcium 8.5 mg/dL (8.6-10.3); Potassium 4.5 mEq/L (3.5-5.1); Uric Acid 7.6 mg/dL (2.3-7.6)
[2019-05-22] MEDS: predniSONE 10 MG TABLET PO SCH (08:05)
[2019-05-22] MEDS: Lactobacillus 1 EACH CAP.SPRINK PO SCH ×2 (08:05→19:51)
[2019-05-22] MEDS: tiZANidine 4 MG TABLET PO PRN ×2 (08:05→23:01)
[2019-05-22] MEDS: amLODIPine 5 MG TABLET PO SCH ×2 (08:05→19:51)
[2019-05-22] MEDS: Cholecalciferol (D-3) 1,000 UNIT (25MCG) TABLET PO SCH (08:05)
[2019-05-22] MEDS: Sennosides/Docusate Sodium TABLET PO SCH ×2 (08:05→19:52)
[2019-05-22] MEDS: *HR* OxyCODONE Immed Rel 5 MG TABLET PO PRN ×2 (08:06→14:57)
[2019-05-22] MEDS: Furosemide 20 MG TABLET PO SCH (08:06)
[2019-05-22] MEDS: Insulin LISPRO 300 UNITS/3 ML VIAL SQ SCH ×3 (08:07→17:40)
[2019-05-22] MEDS: Insulin DETEMIR 100 UNIT/ML X5UNITS SQ SCH ×2 (08:13→19:52)
[2019-05-22] MEDS: *HR* Warfarin 2.5 MG TABLET PO SCH (17:39)
[2019-05-22] MEDS: Oxymetazoline Nasal SPRAY BOTTLE NS PRN (17:40)
[2019-05-23] MEDS: Acetaminophen 325 MG TABLET PO SCH ×5 (01:01→23:31)
[2019-05-23] MEDS: Ascorbic Acid 500 MG TABLET PO SCH (05:48)
[2019-05-23] MEDS: Levothyroxine 25 MCG TABLET PO SCH (05:48)
[2019-05-23] MEDS: Insulin LISPRO 300 UNITS/3 ML VIAL SQ SCH ×3 (07:49→17:27)
[2019-05-23] MEDS: tiZANidine 4 MG TABLET PO PRN (09:45)
[2019-05-23] MEDS: amLODIPine 5 MG TABLET PO SCH ×2 (09:45→20:16)
[2019-05-23] MEDS: Cholecalciferol (D-3) 1,000 UNIT (25MCG) TABLET PO SCH (09:45)
[2019-05-23] MEDS: Lactobacillus 1 EACH CAP.SPRINK PO SCH ×2 (09:45→20:16)
[2019-05-23] MEDS: predniSONE 10 MG TABLET PO SCH (09:45)
[2019-05-23] MEDS: Furosemide 20 MG TABLET PO SCH (09:45)
[2019-05-23] MEDS: Sennosides/Docusate Sodium TABLET PO SCH ×2 (09:45→20:16)
[2019-05-23] MEDS: Insulin DETEMIR 100 UNIT/ML X5UNITS SQ SCH ×2 (09:49→20:16)
[2019-05-23] MEDS: *HR* OxyCODONE Immed Rel 5 MG TABLET PO PRN ×2 (10:15→15:36)
[2019-05-23] MEDS: *HR* FentaNYL PATCH 25 MCG PATCH TD SCH (12:26)
--- NOTE | 2019-05-23 16:04 | Internal Med Progress Note ---
Date of Encounter: 05/23/19 Time of Encounter: 15:57 - Assessment and plan (1) MRSA bacteremia Current Visit: No Status: Acute Assessment and plan: May 09. Continue IV vancomycin through 06/06/2019 with lactobacillus. (2) Back pain Current Visit: Yes Status: Acute Assessment and plan: May 09. Status post L3-4 discitis debridement with laminectomy. Continue IV vancomycin for infection. Duragesic patch has been ordered. Continue other analgesics as needed. Qualifiers: Back pain location: low back pain Chronicity: chronic Back pain laterality: midline Sciatica presence: unspecified whether sciatica present Qualified Code(s): M54.5 - Low back pain; G89.29 - Other chronic pain (3) CKD (chronic kidney disease) stage 3, GFR 30-59 ml/min Current Visit: No Status: Chronic Assessment and plan: May 09. Monitor renal indices. May 15. Recheck labs in a.m. May 21. BUN and creatinine were 35 and 1.93 respectively with estimated GFR 34 on 05/19/2019. Continue to monitor periodically. May 23. BUN and creatinine minimally changed at 38 and 1.93 respectively yesterday. Continue present Rx. (4) Atrial fibrillation Current Visit: No Status: Chronic Assessment and plan: May 09. Continue Coumadin and monitor INR. May 15. Check INR in a.m. May 18. INR was 2.0 May 16. Continue to monitor periodically. May 21. Recheck labs in a.m. May 23. INR 2.1 yesterday. Continue present Rx. Qualifiers: Atrial fibrillation type: chronic Qualified Code(s): I48.2 - Chronic atrial fibrillation (5) Hypertension Current Visit: No Status: Chronic Assessment and plan: May 09. Continue amlodipine and Coreg. May 18. Inadequately controlled. Add Cardura and continue amlodipine and Coreg. May 21. Blood pressure improved. Continue present Rx. Qualifiers: Hypertension type: essential hypertension Qualified Code(s): I10 - Essential (primary) hypertension (6) DM type 2 (diabetes mellitus, type 2) Current Visit: No Status: Chronic Assessment and plan: May 09. Hemoglobin A1c was 11.0% on 02/27/2019. Continue Levemir and Accu-Cheks with SSI. May 15. Blood sugars acceptable. Continue present Rx. Qualifiers: Diabetes mellitus terminal block assembler insulin use: with half-way use Diabetes mellitus complication status: with kidney complications Diabetes mellitus complication detail: with chronic kidney disease Chronic kidney disease stage: stage 3 (moderate) Qualified Code(s): E11.22 - Type 2 diabetes mellitus with diabetic chronic kidney disease; N18.3 - Chronic kidney disease, stage 3 (moderate); Z79.4 - FPC (current) use of insulin (7) Anemia Current Visit: Yes Status: Acute Assessment and plan: May 09. Anemia testing showed iron 22, transferrin saturation 19%, transferrin 82, ferritin 138, B12 1035, and folate 9.9. A trial of ferrous sulfate and ascorbic acid will be ordered. May 15. Recheck labs in a.m. May 18. Hemoglobin minimally changed to 9.0 on May 16. Continue to monitor periodically. May 21. Recheck labs in a.m. May 23. Hemoglobin improved to 9.3 yesterday. Continue to monitor periodically. Qualifiers: Anemia type: unspecified type Qualified Code(s): D64.9 - Anemia, unspecified (8) Gout Current Visit: Yes Status: Acute Assessment and plan: May 09. Uric acid level elevated at 10.4. He will be given prednisone. Allopurinol will be started when acute pain has lessened. May 11. Gout pain has lessened. Continue prednisone and start allopurinol. May 13. Pain has further lessened. Decrease prednisone to 10 mg daily. Continue allopurinol. May 15. Check labs in a.m. May 18. Uric acid level decreased 8.7 on May 16. Continue to monitor. May 21. Recheck labs in a.m. May 23. Uric acid level minimally changed at 7.6. Increase allopurinol to 300 milligrams daily. Discontinue prednisone. Qualifiers: Gout site: unspecified site Gout etiology: unspecified cause Chronicity: chronic Presence of tophus: without tophus Qualified Code(s): M1A.9XX0 - Chronic gout, unspecified, without tophus (tophi) - Subjective Interval history: May 09. He has no new complaints. May 11. He has no new complaints except slight left upper thigh/groin pain. May 13. He has no new complaints and feels better with less pain. May 15. He has no new complaints. He denies pain in this foot. His hand pain has continued to lessen. He states low back pain is slightly lessened. May 18. He has no new complaints. He complains of ongoing pain in his legs. His hand pain has further lessened. May 21. He has no new complaints. He states he is having minimal pain in his hands. He was seen in [place] yesterday by neurosurgeon and orthopedic surgeon with good reports. May 23. He has no new complaints. - Constitutional Vitals: Temp Pulse Resp BP Pulse Ox 97.8 F 65 16 177/88 96 05/23/19 07:04 05/23/19 07:04 05/23/19 07:04 05/23/19 07:04 05/23/19 07:04 Exam: He is resting comfortably in bed and appears in no acute distress. He reported worse back pain yesterday but it has lessened now. Extremities show trace edema of the lower anterior shins bilaterally. I reviewed his medications and lab results. Internal Medicine: Result - Labs CBC & Chem 7: 05/22/19 06:35 05/22/19 06:35 - ABG Interpretation ABG results: PT/INR, D-dimer PT 24.3 Seconds (9.4-12.1) H 05/22/19 06:35 Consult Discharge Plan - Plan Referrals: Deepali Nguyen, LACE ROLLER OPERATOR [Primary Care Provider] - 1 week
[2019-05-23] MEDS: *HR* Warfarin 2.5 MG TABLET PO SCH (17:27)
[2019-05-23 22:28] LABS: Hepatitis B Surface Antigen Nonreactive (Nonreactive)
[2019-05-23 22:57] LABS: HIV-1&2 Antibody & p24 Ag Nonreactive (Nonreactive); Hepatitis C Virus Antibody Nonreactive (Nonreactive)
[2019-05-24] MEDS: tiZANidine 4 MG TABLET PO PRN ×2 (02:28→13:27)
[2019-05-24] MEDS: Levothyroxine 25 MCG TABLET PO SCH (06:24)
[2019-05-24] MEDS: Acetaminophen 325 MG TABLET PO SCH ×4 (06:25→23:37)
[2019-05-24] MEDS: Ascorbic Acid 500 MG TABLET PO SCH (06:25)
[2019-05-24] MEDS: Insulin LISPRO 300 UNITS/3 ML VIAL SQ SCH ×3 (07:46→16:50)
[2019-05-24] MEDS: Cholecalciferol (D-3) 1,000 UNIT (25MCG) TABLET PO SCH (08:37)
[2019-05-24] MEDS: Sennosides/Docusate Sodium TABLET PO SCH ×2 (08:37→22:33)
[2019-05-24] MEDS: *HR* OxyCODONE Immed Rel 5 MG TABLET PO PRN ×3 (08:37→22:33)
[2019-05-24] MEDS: amLODIPine 5 MG TABLET PO SCH ×2 (08:37→22:34)
[2019-05-24] MEDS: Lactobacillus 1 EACH CAP.SPRINK PO SCH ×2 (08:38→22:34)
[2019-05-24] MEDS: Insulin DETEMIR 100 UNIT/ML X5UNITS SQ SCH ×2 (08:38→22:43)
[2019-05-24] MEDS: Furosemide 20 MG TABLET PO SCH (08:38)
[2019-05-24] MEDS: *HR* Warfarin 2.5 MG TABLET PO SCH (16:50)
[2019-05-25] MEDS: *HR* OxyCODONE Immed Rel 5 MG TABLET PO PRN ×4 (03:23→23:40)
[2019-05-25] MEDS: Ascorbic Acid 500 MG TABLET PO SCH (05:18)
[2019-05-25] MEDS: Acetaminophen 325 MG TABLET PO SCH ×4 (05:18→23:40)
[2019-05-25] MEDS: Levothyroxine 25 MCG TABLET PO SCH (05:18)
[2019-05-25] MEDS: Lactobacillus 1 EACH CAP.SPRINK PO SCH ×2 (07:54→21:25)
[2019-05-25] MEDS: Furosemide 20 MG TABLET PO SCH (07:54)
[2019-05-25] MEDS: Sennosides/Docusate Sodium TABLET PO SCH ×2 (07:54→21:26)
[2019-05-25] MEDS: Cholecalciferol (D-3) 1,000 UNIT (25MCG) TABLET PO SCH (07:54)
[2019-05-25] MEDS: amLODIPine 5 MG TABLET PO SCH ×2 (07:54→21:26)
[2019-05-25] MEDS: Insulin LISPRO 300 UNITS/3 ML VIAL SQ SCH ×3 (09:09→16:43)
[2019-05-25] MEDS: Insulin DETEMIR 100 UNIT/ML X5UNITS SQ SCH ×2 (09:10→19:48)
[2019-05-25] MEDS: *HR* Warfarin 2.5 MG TABLET PO SCH (16:43)
[2019-05-25] MEDS: tiZANidine 4 MG TABLET PO PRN (21:28)
[2019-05-26] MEDS: Levothyroxine 25 MCG TABLET PO SCH (05:44)
[2019-05-26] MEDS: Acetaminophen 325 MG TABLET PO SCH ×4 (05:44→23:35)
[2019-05-26] MEDS: Ascorbic Acid 500 MG TABLET PO SCH (05:44)
[2019-05-26] MEDS: *HR* OxyCODONE Immed Rel 5 MG TABLET PO PRN ×4 (05:46→17:31)
[2019-05-26] MEDS: Sennosides/Docusate Sodium TABLET PO SCH ×2 (08:25→20:03)
[2019-05-26] MEDS: Lactobacillus 1 EACH CAP.SPRINK PO SCH ×2 (08:26→20:03)
[2019-05-26] MEDS: Insulin DETEMIR 100 UNIT/ML X5UNITS SQ SCH ×2 (08:26→20:04)
[2019-05-26] MEDS: amLODIPine 5 MG TABLET PO SCH ×2 (08:26→20:04)
[2019-05-26] MEDS: Furosemide 20 MG TABLET PO SCH (08:26)
[2019-05-26] MEDS: tiZANidine 4 MG TABLET PO PRN ×2 (08:26→15:36)
[2019-05-26] MEDS: Insulin LISPRO 300 UNITS/3 ML VIAL SQ SCH ×3 (08:28→16:00)
[2019-05-26] MEDS: Cholecalciferol (D-3) 1,000 UNIT (25MCG) TABLET PO SCH (08:34)
[2019-05-26] MEDS: Oxymetazoline Nasal SPRAY BOTTLE NS PRN (11:32)
[2019-05-26] MEDS: *HR* FentaNYL PATCH 25 MCG PATCH TD SCH (11:33)
--- NOTE | 2019-05-26 15:53 | Internal Med Progress Note ---
Date of Encounter: 05/26/19 Time of Encounter: 15:46 - Assessment and plan (1) MRSA bacteremia Current Visit: No Status: Acute Assessment and plan: May 09. Continue IV vancomycin through 06/06/2019 with lactobacillus. (2) Back pain Current Visit: Yes Status: Acute Assessment and plan: May 09. Status post L3-4 discitis debridement with laminectomy. Continue IV vancomycin for infection. Duragesic patch has been ordered. Continue other analgesics as needed. May 26. Continue present Rx. Add scheduled Tizanidine Qualifiers: Back pain location: low back pain Chronicity: chronic Back pain laterality: midline Sciatica presence: unspecified whether sciatica present Qualified Code(s): M54.5 - Low back pain; G89.29 - Other chronic pain (3) CKD (chronic kidney disease) stage 3, GFR 30-59 ml/min Current Visit: No Status: Chronic Assessment and plan: May 09. Monitor renal indices. May 15. Recheck labs in a.m. May 21. BUN and creatinine were 35 and 1.93 respectively with estimated GFR 34 on 05/19/2019. Continue to monitor periodically. May 23. BUN and creatinine minimally changed at 38 and 1.93 respectively yesterday. Continue present Rx. May 26. Recheck labs in a.m. (4) Atrial fibrillation Current Visit: No Status: Chronic Assessment and plan: May 09. Continue Coumadin and monitor INR. May 15. Check INR in a.m. May 18. INR was 2.0 May 16. Continue to monitor periodically. May 21. Recheck labs in a.m. May 23. INR 2.1 yesterday. Continue present Rx. May 26. Continue Coumadin. Recheck labs in a.m. Qualifiers: Atrial fibrillation type: chronic Qualified Code(s): I48.2 - Chronic atrial fibrillation (5) Hypertension Current Visit: No Status: Chronic Assessment and plan: May 09. Continue amlodipine and Coreg. May 18. Inadequately controlled. Add Cardura and continue amlodipine and Coreg. May 21. Blood pressure improved. Continue present Rx. May 26. Blood pressure show significant fluctuation. Continue present Rx. Qualifiers: Hypertension type: essential hypertension Qualified Code(s): I10 - Essential (primary) hypertension (6) DM type 2 (diabetes mellitus, type 2) Current Visit: No Status: Chronic Assessment and plan: May 09. Hemoglobin A1c was 11.0% on 02/27/2019. Continue Levemir and Accu-Cheks with SSI. May 15. Blood sugars acceptable. Continue present Rx. Qualifiers: Diabetes mellitus exterminator termite insulin use: with exterminator termite use Diabetes mellitus complication status: with kidney complications Diabetes mellitus complication detail: with chronic kidney disease Chronic kidney disease stage: stage 3 (moderate) Qualified Code(s): E11.22 - Type 2 diabetes mellitus with diabetic chronic kidney disease; N18.3 - Chronic kidney disease, stage 3 (moderate); Z79.4 - watermaster (current) use of insulin (7) Anemia Current Visit: Yes Status: Acute Assessment and plan: May 09. Anemia testing showed iron 22, transferrin saturation 19%, transferrin 82, ferritin 138, B12 1035, and folate 9.9. A trial of ferrous sulfate and ascorbic acid will be ordered. May 15. Recheck labs in a.m. May 18. Hemoglobin minimally changed to 9.0 on May 16. Continue to monitor periodically. May 21. Recheck labs in a.m. May 23. Hemoglobin improved to 9.3 yesterday. Continue to monitor periodically. May 26. Recheck labs in a.m. Qualifiers: Anemia type: unspecified type Qualified Code(s): D64.9 - Anemia, unspecified (8) Gout Current Visit: Yes Status: Acute Assessment and plan: May 09. Uric acid level elevated at 10.4. He will be given prednisone. Allopurinol will be started when acute pain has lessened. May 11. Gout pain has lessened. Continue prednisone and start allopurinol. May 13. Pain has further lessened. Decrease prednisone to 10 mg daily. Continue allopurinol. May 15. Check labs in a.m. May 18. Uric acid level decreased 8.7 on May 16. Continue to monitor. May 21. Recheck labs in a.m. May 23. Uric acid level minimally changed at 7.6. Increase allopurinol to 300 milligrams daily. Discontinue prednisone. Qualifiers: Gout site: unspecified site Gout etiology: unspecified cause Chronicity: chronic Presence of tophus: without tophus Qualified Code(s): M1A.9XX0 - Chronic gout, unspecified, without tophus (tophi) - Subjective Interval history: May 09. He has no new complaints. May 11. He has no new complaints except slight left upper thigh/groin pain. May 13. He has no new complaints and feels better with less pain. May 15. He has no new complaints. He denies pain in this foot. His hand pain has continued to lessen. He states low back pain is slightly lessened. May 18. He has no new complaints. He complains of ongoing pain in his legs. His hand pain has further lessened. May 21. He has no new complaints. He states he is having minimal pain in his hands. He was seen in [place] yesterday by neurosurgeon and orthopedic surgeon with good reports. May 23. He has no new complaints. May 26. He has no new complaints at rest. He states he has back pain with activity. - Constitutional Vitals: Temp Pulse Resp BP Pulse Ox 98.4 F 62 18 178/73 94 05/26/19 07:12 05/26/19 07:12 05/26/19 07:12 05/26/19 07:12 05/25/19 19:29 Exam: He is lying in bed and appears in no acute distress. He is working with the therapist at present time. His affect is overall cheerful. I reviewed his medications and lab results. Internal Medicine: Result - Labs CBC & Chem 7: 05/22/19 06:35 05/22/19 06:35 - ABG Interpretation ABG results: PT/INR, D-dimer PT 24.3 Seconds (9.4-12.1) H 05/22/19 06:35 Consult Discharge Plan - Plan Referrals: Deepali Nguyen, STERILE TECH [Primary Care Provider] - 1 week
[2019-05-26] MEDS: tiZANidine 4 MG TABLET PO SCH ×2 (16:41→23:34)
[2019-05-26] MEDS: *HR* Warfarin 2.5 MG TABLET PO SCH (17:38)
[2019-05-26] MEDS ORDERED: tiZANidine 4 MG TABLET PO PRN (23:00)
[2019-05-27] MEDS: Ascorbic Acid 500 MG TABLET PO SCH (06:14)
[2019-05-27] MEDS: Levothyroxine 25 MCG TABLET PO SCH (06:14)
[2019-05-27] MEDS: Acetaminophen 325 MG TABLET PO SCH ×3 (06:14→17:21)
[2019-05-27 06:44] LABS: Basophils % 0.5 %; Eosinophils # 0.1 K/mcL (0.0-0.6); Eosinophils % 2.2 %; Hematocrit 26.8 % (37.5-50.1); Hemoglobin 8.6 g/dL (12.9-16.9); Immature Granulocytes % 0.2 % (0-4); Lymphocytes # 2.1 K/mcL (0.6-4.6); Lymphocytes % 34.2 %; Mean Corpuscular HGB Conc 32.1 g/dL (31.6-35.5); Mean Corpuscular Hemoglobin 30.8 pg (28.0-33.3); Mean Corpuscular Volume 96.1 fL (83.0-100.0); Mean Platelet Volume 9.6 fL (9.4-12.4); Monocytes # 0.6 K/mcL (0.0-1.3); Neutrophils # 3.2 K/mcL (1.6-8.9); Platelet Count 192 K/mcL (140-400); Red Blood Count 2.79 M/mcL (4.19-5.50); Red Cell Distribution Width 15.2 % (11.5-14.5); Segmented Neutrophils % 52.9 %
[2019-05-27 06:53] LABS: INR 2.9; Prothrombin Time 32.9 Seconds (9.4-12.1)
[2019-05-27 07:04] LABS: Calcium 8.4 mg/dL (8.6-10.3); Potassium 4.3 mEq/L (3.5-5.1)
[2019-05-27] MEDS: Insulin LISPRO 300 UNITS/3 ML VIAL SQ SCH ×3 (07:48→16:24)
[2019-05-27] MEDS: Sennosides/Docusate Sodium TABLET PO SCH ×2 (08:37→21:29)
[2019-05-27] MEDS: tiZANidine 4 MG TABLET PO SCH ×2 (08:38→17:22)
[2019-05-27] MEDS: Lactobacillus 1 EACH CAP.SPRINK PO SCH ×2 (08:38→21:28)
[2019-05-27] MEDS: *HR* OxyCODONE Immed Rel 5 MG TABLET PO PRN ×4 (08:38→21:28)
[2019-05-27] MEDS: Cholecalciferol (D-3) 1,000 UNIT (25MCG) TABLET PO SCH (08:38)
[2019-05-27] MEDS: Furosemide 20 MG TABLET PO SCH (08:38)
[2019-05-27] MEDS: amLODIPine 5 MG TABLET PO SCH ×2 (08:39→21:28)
[2019-05-27] MEDS: Insulin DETEMIR 100 UNIT/ML X5UNITS SQ SCH ×2 (08:39→21:33)
[2019-05-27] MEDS ORDERED: *HR* Dextrose 50 % in Water (Vial) 50 ML VIAL IVP PRN (16:27)
[2019-05-27] MEDS: *HR* Warfarin 2.5 MG TABLET PO SCH (17:22)
[2019-05-27] MEDS: Baclofen 10 MG TABLET PO PRN (22:41)
[2019-05-28] MEDS: Acetaminophen 325 MG TABLET PO SCH ×4 (00:26→17:40)
[2019-05-28] MEDS: tiZANidine 4 MG TABLET PO SCH ×3 (00:26→17:40)
[2019-05-28] MEDS: Levothyroxine 25 MCG TABLET PO SCH (05:25)
[2019-05-28] MEDS: Ascorbic Acid 500 MG TABLET PO SCH (05:26)
[2019-05-28] MEDS: Sennosides/Docusate Sodium TABLET PO SCH ×2 (07:48→20:11)
[2019-05-28] MEDS: Cholecalciferol (D-3) 1,000 UNIT (25MCG) TABLET PO SCH (07:48)
[2019-05-28] MEDS: Lactobacillus 1 EACH CAP.SPRINK PO SCH ×2 (07:48→20:11)
[2019-05-28] MEDS: amLODIPine 5 MG TABLET PO SCH ×2 (07:48→20:11)
[2019-05-28] MEDS: *HR* OxyCODONE Immed Rel 5 MG TABLET PO PRN ×3 (07:48→17:40)
[2019-05-28] MEDS: Furosemide 20 MG TABLET PO SCH (07:49)
[2019-05-28] MEDS: Insulin LISPRO 300 UNITS/3 ML VIAL SQ SCH ×3 (08:23→16:17)
[2019-05-28] MEDS: Insulin DETEMIR 100 UNIT/ML X5UNITS SQ SCH ×2 (08:40→20:31)
[2019-05-28] MEDS: Oxymetazoline Nasal SPRAY BOTTLE NS PRN (09:22)
--- NOTE | 2019-05-28 12:55 | Internal Med Progress Note ---
Date of Encounter: 05/28/19 Time of Encounter: 12:48 - Assessment and plan (1) MRSA bacteremia Current Visit: No Status: Acute Assessment and plan: May 09. Continue IV vancomycin through 06/06/2019 with lactobacillus. (2) Back pain Current Visit: Yes Status: Acute Assessment and plan: May 09. Status post L3-4 discitis debridement with laminectomy. Continue IV vancomycin for infection. Duragesic patch has been ordered. Continue other analgesics as needed. May 26. Continue present Rx. Add scheduled Tizanidine Qualifiers: Back pain location: low back pain Chronicity: chronic Back pain laterality: midline Sciatica presence: unspecified whether sciatica present Qualified Code(s): M54.5 - Low back pain; G89.29 - Other chronic pain (3) CKD (chronic kidney disease) stage 3, GFR 30-59 ml/min Current Visit: No Status: Chronic Assessment and plan: May 09. Monitor renal indices. May 15. Recheck labs in a.m. May 21. BUN and creatinine were 35 and 1.93 respectively with estimated GFR 34 on 05/19/2019. Continue to monitor periodically. May 23. BUN and creatinine minimally changed at 38 and 1.93 respectively yesterday. Continue present Rx. May 26. Recheck labs in a.m. May 28. Creatinine 2.46 yesterday. Recheck labs in a.m. (4) Atrial fibrillation Current Visit: No Status: Chronic Assessment and plan: May 09. Continue Coumadin and monitor INR. May 15. Check INR in a.m. May 18. INR was 2.0 May 16. Continue to monitor periodically. May 21. Recheck labs in a.m. May 23. INR 2.1 yesterday. Continue present Rx. May 26. Continue Coumadin. Recheck labs in a.m. May 28. INR 2.9 yesterday. Continue Coumadin. Recheck labs in a.m. Qualifiers: Atrial fibrillation type: chronic Qualified Code(s): I48.2 - Chronic atrial fibrillation (5) Hypertension Current Visit: No Status: Chronic Assessment and plan: May 09. Continue amlodipine and Coreg. May 18. Inadequately controlled. Add Cardura and continue amlodipine and Coreg. May 21. Blood pressure improved. Continue present Rx. May 26. Blood pressure show significant fluctuation. Continue present Rx. Qualifiers: Hypertension type: essential hypertension Qualified Code(s): I10 - Essential (primary) hypertension (6) DM type 2 (diabetes mellitus, type 2) Current Visit: No Status: Chronic Assessment and plan: May 09. Hemoglobin A1c was 11.0% on 02/27/2019. Continue Levemir and Accu-Cheks with SSI. May 15. Blood sugars acceptable. Continue present Rx. Qualifiers: Diabetes mellitus terminal carman insulin use: with assisted use Diabetes mellitus complication status: with kidney complications Diabetes mellitus complication detail: with chronic kidney disease Chronic kidney disease stage: stage 3 (moderate) Qualified Code(s): E11.22 - Type 2 diabetes mellitus with diabetic chronic kidney disease; N18.3 - Chronic kidney disease, stage 3 (moderate); Z79.4 - terminal carman (current) use of insulin (7) Anemia Current Visit: Yes Status: Acute Assessment and plan: May 09. Anemia testing showed iron 22, transferrin saturation 19%, transferrin 82, ferritin 138, B12 1035, and folate 9.9. A trial of ferrous sulfate and ascorbic acid will be ordered. May 15. Recheck labs in a.m. May 18. Hemoglobin minimally changed to 9.0 on May 16. Continue to monitor periodically. May 21. Recheck labs in a.m. May 23. Hemoglobin improved to 9.3 yesterday. Continue to monitor periodically. May 26. Recheck labs in a.m. May 28. Hemoglobin 8.6 yesterday. Recheck in a.m. Qualifiers: Anemia type: unspecified type Qualified Code(s): D64.9 - Anemia, unspecified (8) Gout Current Visit: Yes Status: Acute Assessment and plan: May 09. Uric acid level elevated at 10.4. He will be given prednisone. Allopurinol will be started when acute pain has lessened. May 11. Gout pain has lessened. Continue prednisone and start allopurinol. May 13. Pain has further lessened. Decrease prednisone to 10 mg daily. Continue allopurinol. May 15. Check labs in a.m. May 18. Uric acid level decreased 8.7 on May 16. Continue to monitor. May 21. Recheck labs in a.m. May 23. Uric acid level minimally changed at 7.6. Increase allopurinol to 300 milligrams daily. Discontinue prednisone. May 28. Recheck uric acid level in a.m. Qualifiers: Gout site: unspecified site Gout etiology: unspecified cause Chronicity: chronic Presence of tophus: without tophus Qualified Code(s): M1A.9XX0 - Chronic gout, unspecified, without tophus (tophi) - Subjective Interval history: May 09. He has no new complaints. May 11. He has no new complaints except slight left upper thigh/groin viji n. May 13. He has no new complaints and feels better with less pain. May 15. He has no new complaints. He denies pain in this foot. His hand pain has continued to lessen. He states low back pain is slightly lessened. May 18. He has no new complaints. He complains of ongoing pain in his legs. His hand pain has further lessened. May 21. He has no new complaints. He states he is having minimal pain in his hands. He was seen in [place] yesterday by neurosurgeon and orthopedic surgeon with good reports. May 23. He has no new complaints. May 26. He has no new complaints at rest. He states he has back pain with activity. May 28. He has no new complaints. - Constitutional Vitals: Temp Pulse Resp BP Pulse Ox 97.8 F 66 16 193/83 95 05/28/19 06:53 05/28/19 06:53 05/28/19 06:53 05/28/19 06:53 05/28/19 06:53 Exam: He is sitting in a wheelchair at bedside doing exercise with a therapist. He appears in minimal pain. His affect is cheerful. I reviewed his medications and lab results. Internal Medicine: Result - Labs CBC & Chem 7: 05/27/19 06:20 05/27/19 06:20 - ABG Interpretation ABG results: PT/INR, D-dimer PT 32.9 Seconds (9.4-12.1) H 05/27/19 06:20 Consult Discharge Plan - Plan Referrals: Deepali Nguyen, RECREATIONAL LEADER [Primary Care Provider] - 1 week
[2019-05-28] MEDS: *HR* Warfarin 5 MG TABLET PO SCH (17:47)
[2019-05-29] MEDS: Acetaminophen 325 MG TABLET PO SCH ×4 (00:37→16:59)
[2019-05-29] MEDS: tiZANidine 4 MG TABLET PO SCH ×3 (00:38→16:59)
[2019-05-29] MEDS: Levothyroxine 25 MCG TABLET PO SCH (05:53)
[2019-05-29] MEDS: *HR* OxyCODONE Immed Rel 5 MG TABLET PO PRN ×3 (05:53→16:59)
[2019-05-29] MEDS: Ascorbic Acid 500 MG TABLET PO SCH (05:53)
[2019-05-29 06:23] LABS: Basophils % 0.4 %; Eosinophils # 0.1 K/mcL (0.0-0.6); Eosinophils % 2.5 %; Hematocrit 24.8 % (37.5-50.1); Hemoglobin 7.9 g/dL (12.9-16.9); Immature Granulocytes % 0.2 % (0-4); Mean Corpuscular HGB Conc 31.9 g/dL (31.6-35.5); Mean Corpuscular Hemoglobin 30.5 pg (28.0-33.3); Mean Corpuscular Volume 95.8 fL (83.0-100.0); Mean Platelet Volume 9.9 fL (9.4-12.4); Monocytes # 0.5 K/mcL (0.0-1.3); Monocytes % 9.1 %; Neutrophils # 2.9 K/mcL (1.6-8.9); Platelet Count 201 K/mcL (140-400); Red Blood Count 2.59 M/mcL (4.19-5.50); Red Cell Distribution Width 15.3 % (11.5-14.5); Segmented Neutrophils % 51.8 %; White Blood Count 5.5 K/mcL (4.3-11.1)
[2019-05-29 06:29] LABS: INR 3.5; Prothrombin Time 39.7 Seconds (9.4-12.1)
[2019-05-29 06:41] LABS: Albumin 2.4 g/dL (3.5-5.7); Albumin/Globulin Ratio 0.5 (1.1-2.2); Bilirubin,Total 0.6 mg/dL (0.3-1.0); Calcium 8.1 mg/dL (8.6-10.3); Globulin 4.4 g/dL (2.4-3.5); Potassium 4.2 mEq/L (3.5-5.1); Total Protein 6.8 g/dL (6.4-8.9); Uric Acid 7.3 mg/dL (2.3-7.6)
[2019-05-29] MEDS: Insulin LISPRO 300 UNITS/3 ML VIAL SQ SCH ×3 (07:43→16:19)
[2019-05-29] MEDS: Oxymetazoline Nasal SPRAY BOTTLE NS PRN (09:57)
[2019-05-29] MEDS: Sennosides/Docusate Sodium TABLET PO SCH ×2 (09:58→20:33)
[2019-05-29] MEDS: Furosemide 20 MG TABLET PO SCH (09:58)
[2019-05-29] MEDS: Lactobacillus 1 EACH CAP.SPRINK PO SCH ×2 (09:58→20:33)
[2019-05-29] MEDS: amLODIPine 5 MG TABLET PO SCH ×2 (09:58→20:33)
[2019-05-29] MEDS: Cholecalciferol (D-3) 1,000 UNIT (25MCG) TABLET PO SCH (09:58)
[2019-05-29] MEDS: Insulin DETEMIR 100 UNIT/ML X5UNITS SQ SCH ×2 (10:01→20:33)
[2019-05-29] MEDS: *HR* FentaNYL PATCH 25 MCG PATCH TD SCH (11:41)
[2019-05-29] MEDS: *HR* Warfarin 2.5 MG TABLET PO SCH (17:10)
[2019-05-30] MEDS: *HR* OxyCODONE Immed Rel 5 MG TABLET PO PRN ×3 (00:21→18:21)
[2019-05-30] MEDS: Acetaminophen 325 MG TABLET PO SCH ×5 (00:23→23:29)
[2019-05-30] MEDS: tiZANidine 4 MG TABLET PO SCH ×4 (00:25→23:29)
[2019-05-30] MEDS: Levothyroxine 25 MCG TABLET PO SCH (06:02)
[2019-05-30] MEDS: Ascorbic Acid 500 MG TABLET PO SCH (06:02)
[2019-05-30] MEDS: Insulin LISPRO 300 UNITS/3 ML VIAL SQ SCH ×3 (07:42→18:01)
[2019-05-30] MEDS: Cholecalciferol (D-3) 1,000 UNIT (25MCG) TABLET PO SCH (09:38)
[2019-05-30] MEDS: Furosemide 20 MG TABLET PO SCH (09:38)
[2019-05-30] MEDS: Sennosides/Docusate Sodium TABLET PO SCH ×2 (09:38→22:39)
[2019-05-30] MEDS: Lactobacillus 1 EACH CAP.SPRINK PO SCH ×2 (09:39→22:39)
[2019-05-30] MEDS: amLODIPine 5 MG TABLET PO SCH ×2 (09:39→22:40)
[2019-05-30] MEDS: Insulin DETEMIR 100 UNIT/ML X5UNITS SQ SCH ×2 (09:43→22:39)
--- NOTE | 2019-05-30 16:33 | Internal Med Progress Note ---
Date of Encounter: 05/30/19 Time of Encounter: 16:22 - Assessment and plan (1) MRSA bacteremia Current Visit: No Status: Acute Assessment and plan: May 09. Continue IV vancomycin through 06/06/2019 with lactobacillus. (2) Back pain Current Visit: Yes Status: Acute Assessment and plan: May 09. Status post L3-4 discitis debridement with laminectomy. Continue IV vancomycin for infection. Duragesic patch has been ordered. Continue other analgesics as needed. May 26. Continue present Rx. Add scheduled Tizanidine Qualifiers: Back pain location: low back pain Chronicity: chronic Back pain laterality: midline Sciatica presence: unspecified whether sciatica present Qualified Code(s): M54.5 - Low back pain; G89.29 - Other chronic pain (3) CKD (chronic kidney disease) stage 3, GFR 30-59 ml/min Current Visit: No Status: Chronic Assessment and plan: May 09. Monitor renal indices. May 15. Recheck labs in a.m. May 21. BUN and creatinine were 35 and 1.93 respectively with estimated GFR 34 on 05/19/2019. Continue to monitor periodically. May 23. BUN and creatinine minimally changed at 38 and 1.93 respectively yesterday. Continue present Rx. May 26. Recheck labs in a.m. May 28. Creatinine 2.46 yesterday. Recheck labs in a.m. May 30. Creatinine slightly higher at 2.62. Recheck in a.m. (4) Atrial fibrillation Current Visit: No Status: Chronic Assessment and plan: May 09. Continue Coumadin and monitor INR. May 15. Check INR in a.m. May 18. INR was 2.0 May 16. Continue to monitor periodically. May 21. Recheck labs in a.m. May 23. INR 2.1 yesterday. Continue present Rx. May 26. Continue Coumadin. Recheck labs in a.m. May 28. INR 2.9 yesterday. Continue Coumadin. Recheck labs in a.m. May 30. INR 3.5. Hold Coumadin and monitor INR. Qualifiers: Atrial fibrillation type: chronic Qualified Code(s): I48.2 - Chronic atrial fibrillation (5) Hypertension Current Visit: No Status: Chronic Assessment and plan: May 09. Continue amlodipine and Coreg. May 18. Inadequately controlled. Add Cardura and continue amlodipine and Coreg. May 21. Blood pressure improved. Continue present Rx. May 26. Blood pressure show significant fluctuation. Continue present Rx . Qualifiers: Hypertension type: essential hypertension Qualified Code(s): I10 - Essential (primary) hypertension (6) DM type 2 (diabetes mellitus, type 2) Current Visit: No Status: Chronic Assessment and plan: May 09. Hemoglobin A1c was 11.0% on 02/27/2019. Continue Levemir and Accu-Cheks with SSI. May 15. Blood sugars acceptable. Continue present Rx. Qualifiers: Diabetes mellitus fci insulin use: with fci use Diabetes mellitus complication status: with kidney complications Diabetes mellitus complication detail: with chronic kidney disease Chronic kidney disease stage: stage 3 (moderate) Qualified Code(s): E11.22 - Type 2 diabetes mellitus with diabetic chronic kidney disease; N18.3 - Chronic kidney disease, stage 3 (moderate); Z79.4 - [facility] (current) use of insulin (7) Anemia Current Visit: Yes Status: Acute Assessment and plan: May 09. Anemia testing showed iron 22, transferrin saturation 19%, transferrin 82, ferritin 138, B12 1035, and folate 9.9. A trial of ferrous sulfate and ascorbic acid will be ordered. May 15. Recheck labs in a.m. May 18. Hemoglobin minimally changed to 9.0 on May 16. Continue to monitor periodically. May 21. Recheck labs in a.m. May 23. Hemoglobin improved to 9.3 yesterday. Continue to monitor periodically. May 26. Recheck labs in a.m. May 28. Hemoglobin 8.6 yesterday. Recheck in a.m. May 30. Hemoglobin further decreased to 7.9. Hold Coumadin due to eleva josie INR and monitor CBC. Qualifiers: Anemia type: unspecified type Qualified Code(s): D64.9 - Anemia, unspecified (8) Gout Current Visit: Yes Status: Acute Assessment and plan: May 09. Uric acid level elevated at 10.4. He will be given prednisone. Allopurinol will be started when acute pain has lessened. May 11. Gout pain has lessened. Continue prednisone and start allopurinol. May 13. Pain has further lessened. Decrease prednisone to 10 mg daily. Continue allopurinol. May 15. Check labs in a.m. May 18. Uric acid level decreased 8.7 on May 16. Continue to monitor. May 21. Recheck labs in a.m. May 23. Uric acid level minimally changed at 7.6. Increase allopurinol to 300 milligrams daily. Discontinue prednisone. May 28. Recheck uric acid level in a.m. May 30. Uric acid further decreased at 7.3. Continue allopurinol 300 mg daily. Qualifiers: Gout site: unspecified site Gout etiology: unspecified cause Chronicity: chronic Presence of tophus: without tophus Qualified Code(s): M1A.9XX0 - Chronic gout, unspecified, without tophus (tophi) - Subjective Interval history: May 09. He has no new complaints. May 11. He has no new complaints except slight left upper thigh/groin pain. May 13. He has no new complaints and feels better with less pain. May 15. He has no new complaints. He denies pain in this foot. His hand pain has continued to lessen. He states low back pain is slightly lessened. May 18. He has no new complaints. He complains of ongoing pain in his legs. His hand pain has further lessened. May 21. He has no new complaints. He states he is having minimal pain in his hands. He was seen in [place] yesterday by neurosurgeon and orthopedic surgeon with good reports. May 23. He has no new complaints. May 26. He has no new complaints at rest. He states he has back pain with activity. May 28. He has no new complaints. May 30. He has no new complaints. - Constitutional Vitals: Temp Pulse Resp BP Pulse Ox 97.5 F L 56 16 136/72 91 05/30/19 07:15 05/30/19 07:15 05/30/19 07:15 05/30/19 07:15 05/30/19 07:15 Exam: He is sitting in a chair at bedside resting comfortably. His affect is bright and cheerful. Extremities show 1-2+ edema of the dorsum of the feet and lower legs bilaterally. Affect is bright and cheerful. I reviewed his medications and lab results. Internal Medicine: Result - Labs CBC & Chem 7: 05/29/19 05:50 05/29/19 05:50 - ABG Interpretation ABG results: PT/INR, D-dimer PT 39.7 Seconds (9.4-12.1) H 05/29/19 05:50 Consult Discharge Plan - Plan Referrals: Deepali Nguyen, YADIRA [Primary Care Provider] - 1 week
[2019-05-31] MEDS: *HR* OxyCODONE Immed Rel 5 MG TABLET PO PRN ×4 (04:18→20:53)
[2019-05-31] MEDS: Levothyroxine 25 MCG TABLET PO SCH (05:59)
[2019-05-31] MEDS: Ascorbic Acid 500 MG TABLET PO SCH (05:59)
[2019-05-31] MEDS: Acetaminophen 325 MG TABLET PO SCH ×3 (05:59→17:32)
[2019-05-31 07:10] LABS: Basophils % 0.4 %; Eosinophils # 0.2 K/mcL (0.0-0.6); Eosinophils % 2.9 %; Hematocrit 24.7 % (37.5-50.1); Hemoglobin 7.9 g/dL (12.9-16.9); Immature Granulocytes % 0.4 % (0-4); Lymphocytes % 35.9 %; Mean Corpuscular Hemoglobin 30.7 pg (28.0-33.3); Mean Corpuscular Volume 96.1 fL (83.0-100.0); Mean Platelet Volume 10.3 fL (9.4-12.4); Monocytes # 0.6 K/mcL (0.0-1.3); Monocytes % 10.4 %; Neutrophils # 2.7 K/mcL (1.6-8.9); Platelet Count 198 K/mcL (140-400); Red Blood Count 2.57 M/mcL (4.19-5.50); Red Cell Distribution Width 15.6 % (11.5-14.5); White Blood Count 5.5 K/mcL (4.3-11.1)
[2019-05-31 07:43] LABS: Potassium 4.3 mEq/L (3.5-5.1)
[2019-05-31] MEDS: tiZANidine 4 MG TABLET PO SCH ×2 (08:10→17:33)
[2019-05-31] MEDS: Cholecalciferol (D-3) 1,000 UNIT (25MCG) TABLET PO SCH (08:10)
[2019-05-31] MEDS: Furosemide 20 MG TABLET PO SCH (08:10)
[2019-05-31] MEDS: Sennosides/Docusate Sodium TABLET PO SCH ×2 (08:10→20:53)
[2019-05-31] MEDS: Insulin LISPRO 300 UNITS/3 ML VIAL SQ SCH ×3 (08:11→17:33)
[2019-05-31] MEDS: Insulin DETEMIR 100 UNIT/ML X5UNITS SQ SCH ×2 (08:11→22:00)
[2019-05-31] MEDS: amLODIPine 5 MG TABLET PO SCH (08:11)
[2019-05-31] MEDS: Lactobacillus 1 EACH CAP.SPRINK PO SCH ×2 (10:31→20:53)
--- NOTE | 2019-05-31 16:47 | Internal Med Progress Note ---
Date of Encounter: 05/31/19 Time of Encounter: 16:35 - Assessment and plan (1) MRSA bacteremia Current Visit: No Status: Acute Assessment and plan: May 09. Continue IV vancomycin through 06/06/2019 with lactobacillus. (2) Back pain Current Visit: Yes Status: Acute Assessment and plan: May 09. Status post L3-4 discitis debridement with laminectomy. Continue IV vancomycin for infection. Duragesic patch has been ordered. Continue other analgesics as needed. May 26. Continue present Rx. Add scheduled Tizanidine Qualifiers: Back pain location: low back pain Chronicity: chronic Back pain laterality: midline Sciatica presence: unspecified whether sciatica present Qualified Code(s): M54.5 - Low back pain; G89.29 - Other chronic pain (3) CKD (chronic kidney disease) stage 3, GFR 30-59 ml/min Current Visit: No Status: Chronic Assessment and plan: May 09. Monitor renal indices. May 15. Recheck labs in a.m. May 21. BUN and creatinine were 35 and 1.93 respectively with estimated GFR 34 on 05/19/2019. Continue to monitor periodically. May 23. BUN and creatinine minimally changed at 38 and 1.93 respectively yesterday. Continue present Rx. May 26. Recheck labs in a.m. May 28. Creatinine 2.46 yesterday. Recheck labs in a.m. May 30. Creatinine slightly higher at 2.62. Recheck in a.m. May 31. Creatinine has risen further to 3.16. (4) Atrial fibrillation Current Visit: No Status: Chronic Assessment and plan: May 09. Continue Coumadin and monitor INR. May 15. Check INR in a.m. May 18. INR was 2.0 May 16. Continue to monitor periodically. May 21. Recheck labs in a.m. May 23. INR 2.1 yesterday. Continue present Rx. May 26. Continue Coumadin. Recheck labs in a.m. May 28. INR 2.9 yesterday. Continue Coumadin. Recheck labs in a.m. May 30. INR 3.5. Hold Coumadin and monitor INR. Qualifiers: Atrial fibrillation type: chronic Qualified Code(s): I48.2 - Chronic atrial fibrillation (5) Hypertension Current Visit: No Status: Chronic Assessment and plan: May 09. Continue amlodipine and Coreg. May 18. Inadequately controlled. Add Cardura and continue amlodipine and Coreg. May 21. Blood pressure improved. Continue present Rx. May 26. Blood pressure show significant fluctuation. Continue present Rx. May 31. Decrease amlodipine due to edema. Continue Coreg and Cardura. Qualifiers: Hypertension type: essential hypertension Qualified Code(s): I10 - Essential (primary) hypertension (6) DM type 2 (diabetes mellitus, type 2) Current Visit: No Status: Chronic Assessment and plan: May 09. Hemoglobin A1c was 11.0% on 02/27/2019. Continue Levemir and Accu-Cheks with SSI. May 15. Blood sugars acceptable. Continue present Rx. Qualifiers: Diabetes mellitus long term care phlebotomist insulin use: with detention use Diabetes mellitus complication status: with kidney complications Diabetes mellitus complication detail: with chronic kidney disease Chronic kidney disease stage: stage 3 (moderate) Qualified Code(s): E11.22 - Type 2 diabetes mellitus with diabetic chronic kidney disease; N18.3 - Chronic kidney disease, stage 3 (moderate); Z79.4 - [employer] (current) use of insulin (7) Anemia Current Visit: Yes Status: Acute Assessment and plan: May 09. Anemia testing showed iron 22, transferrin saturation 19%, transferrin 82, ferritin 138, B12 1035, and folate 9.9. A trial of ferrous sulfate and ascorbic acid will be ordered. May 15. Recheck labs in a.m. May 18. Hemoglobin minimally changed to 9.0 on May 16. Continue to monitor periodically. May 21. Recheck labs in a.m. May 23. Hemoglobin improved to 9.3 yesterday. Continue to monitor periodically. May 26. Recheck labs in a.m. May 28. Hemoglobin 8.6 yesterday. Recheck in a.m. May 30. Hemoglobin further decreased to 7.9. Hold Coumadin due to elevated INR and monitor CBC. May 31. Hemoglobin stable at 7.9. Continue to monitor periodically. Qualifiers: Anemia type: unspecified type Qualified Code(s): D64.9 - Anemia, unspecified (8) Gout Current Visit: Yes Status: Acute Assessment and plan: May 09. Uric acid level elevated at 10.4. He will be given prednisone. Allopurinol will be started when acute pain has lessened. May 11. Gout pain has lessened. Continue prednisone and start allopurinol. May 13. Pain has further lessened. Decrease prednisone to 10 mg daily. Continue allopurinol. May 15. Check labs in a.m. May 18. Uric acid level decreased 8.7 on May 16. Continue to monitor. May 21. Recheck labs in a.m. May 23. Uric acid level minimally changed at 7.6. Increase allopurinol to 300 milligrams daily. Discontinue prednisone. May 28. Recheck uric acid level in a.m. May 30. Uric acid further decreased at 7.3. Continue allopurinol 300 mg daily. Qualifiers: Gout site: unspecified site Gout etiology: unspecified cause Chronicity: chronic Presence of tophus: without tophus Qualified Code(s): M1A.9XX0 - Chronic gout, unspecified, without tophus (tophi) - Subjective Interval history: May 09. He has no new complaints. May 11. He has no new complaints except slight left upper thigh/groin pain. May 13. He has no new complaints and feels better with less pain. May 15. He has no new complaints. He denies pain in this foot. His hand pain has continued to lessen. He states low back pain is slightly lessened. May 18. He has no new complaints. He complains of ongoing pain in his legs. His hand pain has further lessened. May 21. He has no new complaints. He states he is having minimal pain in his hands. He was seen in [place] yesterday by neurosurgeon and orthopedic surgeon with good reports. May 23. He has no new complaints. May 26. He has no new complaints at rest. He states he has back pain w ith activity. May 28. He has no new complaints. May 30. He has no new complaints. May 31. He has no specific complaints. He reports a moderate BM yesterday with some abdominal discomfort relief. - Constitutional Vitals: Temp Pulse Resp BP Pulse Ox 97.3 F L 54 16 150/73 97 05/31/19 07:09 05/31/19 07:09 05/31/19 07:09 05/31/19 07:09 05/31/19 07:09 Exam: He is sitting in a wheelchair at bedside. There is 1-2+ edema of the dorsum of the feet and lower legs bilaterally. His affect is bright and cheerful. I reviewed his medications and lab results. Internal Medicine: Result - Labs CBC & Chem 7: 05/31/19 04:40 05/31/19 04:40 Labs: Short CBC 05/31/19 Range/Units 04:40 WBC 5.5 (4.3-11.1) K/mcL Hgb 7.9 L (12.9-16.9) g/dL Hct 24.7 L (37.5-50.1) % Plt Count 198 (140-400) K/mcL Neutrophils # 2.7 (1.6-8.9) K/mcL BMP 05/31/19 04:40 Sodium 129 L Potassium 4.3 Chloride 96 L Carbon Dioxide 25 BUN 50 H Creatinine 3.16 H Glucose 128 H Calcium 8.0 L - ABG Interpretation ABG results: PT/INR, D-dimer PT 39.7 Seconds (9.4-12.1) H 05/29/19 05:50 Consult Discharge Plan - Plan Referrals: Deepali Nguyen, [facility] [facility] [Primary Care Provider] - 1 week
[2019-06-01] MEDS: Levothyroxine 25 MCG TABLET PO SCH (06:26)
[2019-06-01] MEDS: Acetaminophen 325 MG TABLET PO SCH ×4 (06:26→14:06)
[2019-06-01] MEDS: Ascorbic Acid 500 MG TABLET PO SCH (06:26)
[2019-06-01] MEDS: *HR* OxyCODONE Immed Rel 5 MG TABLET PO PRN (08:26)
[2019-06-01] MEDS: Sennosides/Docusate Sodium TABLET PO SCH ×2 (08:26→22:35)
[2019-06-01] MEDS: Furosemide 20 MG TABLET PO SCH (08:28)
[2019-06-01] MEDS: tiZANidine 4 MG TABLET PO SCH ×4 (08:28→22:34)
[2019-06-01] MEDS: Lactobacillus 1 EACH CAP.SPRINK PO SCH ×2 (08:28→22:35)
[2019-06-01] MEDS: Cholecalciferol (D-3) 1,000 UNIT (25MCG) TABLET PO SCH (08:28)
[2019-06-01] MEDS: Insulin LISPRO 300 UNITS/3 ML VIAL SQ SCH ×3 (08:29→14:06)
[2019-06-01] MEDS: amLODIPine 5 MG TABLET PO SCH (08:30)
[2019-06-01] MEDS: Insulin DETEMIR 100 UNIT/ML X5UNITS SQ SCH ×2 (08:30→22:35)
[2019-06-01] MEDS: *HR* FentaNYL PATCH 25 MCG PATCH TD SCH (08:44)
[2019-06-02] MEDS: Acetaminophen 325 MG TABLET PO SCH ×4 (04:19→18:21)
[2019-06-02] MEDS: *HR* OxyCODONE Immed Rel 5 MG TABLET PO PRN ×2 (04:55→13:48)
[2019-06-02] MEDS: Levothyroxine 25 MCG TABLET PO SCH (04:55)
[2019-06-02] MEDS: Ascorbic Acid 500 MG TABLET PO SCH (04:55)
[2019-06-02] MEDS: Furosemide 20 MG TABLET PO SCH (07:57)
[2019-06-02] MEDS: Cholecalciferol (D-3) 1,000 UNIT (25MCG) TABLET PO SCH (07:57)
[2019-06-02] MEDS: Lactobacillus 1 EACH CAP.SPRINK PO SCH ×2 (07:57→22:04)
[2019-06-02] MEDS: tiZANidine 4 MG TABLET PO SCH ×3 (07:57→22:04)
[2019-06-02] MEDS: Insulin DETEMIR 100 UNIT/ML X5UNITS SQ SCH ×2 (07:58→22:04)
[2019-06-02] MEDS: amLODIPine 5 MG TABLET PO SCH (07:58)
[2019-06-02] MEDS: Sennosides/Docusate Sodium TABLET PO SCH ×2 (07:58→22:03)
[2019-06-02] MEDS: Insulin LISPRO 300 UNITS/3 ML VIAL SQ SCH ×3 (07:59→16:50)
--- NOTE | 2019-06-02 14:59 | Internal Med Progress Note ---
Date of Encounter: 06/02/19 Time of Encounter: 14:52 - Assessment and plan (1) MRSA bacteremia Current Visit: No Status: Acute Assessment and plan: May 09. Continue IV vancomycin through 06/06/2019 with lactobacillus. (2) Back pain Current Visit: Yes Status: Acute Assessment and plan: May 09. Status post L3-4 discitis debridement with laminectomy. Continue IV vancomycin for infection. Duragesic patch has been ordered. Continue other analgesics as needed. May 26. Continue present Rx. Add scheduled Tizanidine Qualifiers: Back pain location: low back pain Chronicity: chronic Back pain laterality: midline Sciatica presence: unspecified whether sciatica present Qualified Code(s): M54.5 - Low back pain; G89.29 - Other chronic pain (3) CKD (chronic kidney disease) stage 3, GFR 30-59 ml/min Current Visit: No Status: Chronic Assessment and plan: May 09. Monitor renal indices. May 15. Recheck labs in a.m. May 21. BUN and creatinine were 35 and 1.93 respectively with estimated GFR 34 on 05/19/2019. Continue to monitor periodically. May 23. BUN and creatinine minimally changed at 38 and 1.93 respectively yesterday. Continue present Rx. May 26. Recheck labs in a.m. May 28. Creatinine 2.46 yesterday. Recheck labs in a.m. May 30. Creatinine slightly higher at 2.62. Recheck in a.m. May 31. Creatinine has risen further to 3.16. June 02. Recheck labs in a.m. (4) Atrial fibrillation Current Visit: No Status: Chronic Assessment and plan: May 09. Continue Coumadin and monitor INR. May 15. Check INR in a.m. May 18. INR was 2.0 May 16. Continue to monitor periodically. May 21. Recheck labs in a.m. May 23. INR 2.1 yesterday. Continue present Rx. May 26. Continue Coumadin. Recheck labs in a.m. May 28. INR 2.9 yesterday. Continue Coumadin. Recheck labs in a.m. May 30. INR 3.5. Hold Coumadin and monitor INR. June 02. Recheck labs in a.m. Qualifiers: Atrial fibrillation type: chronic Qualified Code(s): I48.2 - Chronic atrial fibrillation (5) Hypertension Current Visit: No Status: Chronic Assessment and plan: May 09. Continue amlodipine and Coreg. May 18. Inadequately controlled. Add Cardura and continue amlodipine and Coreg. May 21. Blood pressure improved. Continue present Rx. May 26. Blood pressure show significant fluctuation. Continue present Rx. May 31. Decrease amlodipine due to edema. Continue Coreg and Cardura. June 02. Blood pressure remains stable. Discontinue amlodipine to see if edema lessens. Continue Coreg and Cardura. Qualifiers: Hypertension type: essential hypertension Qualified Code(s): I10 - Essential (primary) hypertension (6) DM type 2 (diabetes mellitus, type 2) Current Visit: No Status: Chronic Assessment and plan: May 09. Hemoglobin A1c was 11.0% on 02/27/2019. Continue Levemir and Accu-Cheks with SSI. May 15. Blood sugars acceptable. Continue present Rx. Qualifiers: Diabetes mellitus tank terminal gauger insulin use: with senior care use Diabetes mellitus complication status: with kidney complications Diabetes mellitus complication detail: with chronic kidney disease Chronic kidney disease stage: stage 3 (moderate) Qualified Code(s): E11.22 - Type 2 diabetes mellitus with diabetic chronic kidney disease; N18.3 - Chronic kidney disease, stage 3 (moderate); Z79.4 - [facility] use of insulin (7) Anemia Current Visit: Yes Status: Acute Assessment and plan: May 09. Anemia testing showed iron 22, transferrin saturation 19%, transferrin 82, ferritin 138, B12 1035, and folate 9.9. A trial of ferrous sulfate and ascorbic acid will be ordered. May 15. Recheck labs in a.m. May 18. Hemoglobin minimally changed to 9.0 on May 16. Continue to monitor periodically. May 21. Recheck labs in a.m. May 23. Hemoglobin improved to 9.3 yesterday. Continue to monitor periodically. May 26. Recheck labs in a.m. May 28. Hemoglobin 8.6 yesterday. Recheck in a.m. May 30. Hemoglobin further decreased to 7.9. Hold Coumadin due to elevated INR and monitor CBC. May 31. Hemoglobin stable at 7.9. Continue to monitor periodically. June 02. Recheck labs in a.m. Qualifiers: Anemia type: unspecified type Qualified Code(s): D64.9 - Anemia, unspecified (8) Gout Current Visit: Yes Status: Acute Assessment and plan: May 09. Uric acid level elevated at 10.4. He will be given prednisone. Allopurinol will be started when acute pain has lessened. May 11. Gout pain has lessened. Continue prednisone and start allopurinol. May 13. Pain has further lessened. Decrease prednisone to 10 mg daily. Continue allopurinol. May 15. Check labs in a.m. May 18. Uric acid level decreased 8.7 on May 16. Continue to monitor. May 21. Recheck labs in a.m. May 23. Uric acid level minimally changed at 7.6. Increase allopurinol to 300 milligrams daily. Discontinue prednisone. May 28. Recheck uric acid level in a.m. May 30. Uric acid further decreased at 7.3. Continue allopurinol 300 mg daily. Qualifiers: Gout site: unspecified site Gout etiology: unspecified cause Chronicity: chronic Presence of tophus: without tophus Qualified Code(s): M1A.9XX0 - Chronic gout, unspecified, without tophus (tophi) - Subjective Interval history: May 09. He has no new complaints. May 11. He has no new complaints except slight left upper thigh/groin pain. May 13. He has no new complaints and feels better with less pain. May 15. He has no new complaints. He denies pain in this foot. His hand pain has continued to lessen. He states low back pain is slightly lessened. May 18. He has no new complaints. He complains of ongoing pain in his legs. His hand pain has further lessened. May 21. He has no new complaints. He states he is having minimal pain in his hands. He was seen in [place] yesterday by neurosurgeon and orthopedic surgeon with good reports. May 23. He has no new complaints. May 26. He has no new complaints at rest. He states he has back pain with activity. May 28. He has no new complaints. May 30. He has no new complaints. May 31. He has no specific complaints. He reports a moderate BM yesterday with some abdominal discomfort relief. June 02. He has no new complaints. He had day pass yesterday and spent several hours outside the hospital. - Constitutional Vitals: Temp Pulse Resp BP Pulse Ox 97.5 F L 70 16 106/57 93 06/02/19 06:25 06/02/19 06:25 06/02/19 06:25 06/02/19 06:25 06/02/19 06:25 Exam: He is resting comfortably in bed and appears in no acute distress. His affect is bright and cheerful. He has trace to 1+ edema of his lower legs bilaterally. I reviewed his medications and lab results. Internal Medicine: Result - Labs CBC & Chem 7: 05/31/19 04:40 05/31/19 04:40 - ABG Interpretation ABG results: PT/INR, D-dimer PT 39.7 Seconds (9.4-12.1) H 05/29/19 05:50 Consult Discharge Plan - Plan Referrals: Deepali Nguyen, YADIRA [Primary Care Provider] - 1 week
[2019-06-02] MEDS: *HR* Warfarin 2.5 MG TABLET PO SCH (17:52)
[2019-06-03] MEDS: Acetaminophen 325 MG TABLET PO SCH ×4 (00:16→16:46)
[2019-06-03] MEDS: tiZANidine 4 MG TABLET PO SCH ×2 (05:55→16:21)
[2019-06-03] MEDS: Levothyroxine 25 MCG TABLET PO SCH (05:55)
[2019-06-03] MEDS: Ascorbic Acid 500 MG TABLET PO SCH (05:55)
[2019-06-03 06:19] LABS: Basophils % 0.4 %; Eosinophils # 0.2 K/mcL (0.0-0.6); Hematocrit 25.3 % (37.5-50.1); Immature Granulocytes % 0.2 % (0-4); Lymphocytes % 39.4 %; Mean Corpuscular HGB Conc 31.6 g/dL (31.6-35.5); Mean Corpuscular Hemoglobin 30.3 pg (28.0-33.3); Mean Corpuscular Volume 95.8 fL (83.0-100.0); Mean Platelet Volume 9.9 fL (9.4-12.4); Monocytes # 0.4 K/mcL (0.0-1.3); Monocytes % 8.5 %; Neutrophils # 2.4 K/mcL (1.6-8.9); Platelet Count 205 K/mcL (140-400); Red Blood Count 2.64 M/mcL (4.19-5.50); Red Cell Distribution Width 15.9 % (11.5-14.5); Segmented Neutrophils % 47.5 %
[2019-06-03 06:40] LABS: INR 3.1; Prothrombin Time 35.5 Seconds (9.4-12.1)
[2019-06-03 06:54] LABS: Calcium 8.2 mg/dL (8.6-10.3); Potassium 4.6 mEq/L (3.5-5.1)
[2019-06-03] MEDS: Insulin LISPRO 300 UNITS/3 ML VIAL SQ SCH ×3 (07:55→16:30)
[2019-06-03] MEDS: *HR* OxyCODONE Immed Rel 5 MG TABLET PO PRN ×3 (08:08→21:22)
[2019-06-03] MEDS: Cholecalciferol (D-3) 1,000 UNIT (25MCG) TABLET PO SCH (08:08)
[2019-06-03] MEDS: Sennosides/Docusate Sodium TABLET PO SCH ×2 (08:08→21:22)
[2019-06-03] MEDS: Furosemide 20 MG TABLET PO SCH (08:08)
[2019-06-03] MEDS: Lactobacillus 1 EACH CAP.SPRINK PO SCH ×2 (08:08→21:22)
[2019-06-03] MEDS: Insulin DETEMIR 100 UNIT/ML X5UNITS SQ SCH ×2 (08:09→21:23)
[2019-06-03] MEDS: *HR* Warfarin 2.5 MG TABLET PO SCH (16:46)
[2019-06-03] MEDS: Baclofen 10 MG TABLET PO PRN (21:22)
[2019-06-04] MEDS: tiZANidine 4 MG TABLET PO SCH ×4 (02:09→21:19)
[2019-06-04] MEDS: Acetaminophen 325 MG TABLET PO SCH ×4 (02:09→18:13)
[2019-06-04] MEDS: Levothyroxine 25 MCG TABLET PO SCH (05:41)
[2019-06-04] MEDS: Ascorbic Acid 500 MG TABLET PO SCH (05:41)
[2019-06-04] MEDS: Insulin LISPRO 300 UNITS/3 ML VIAL SQ SCH ×3 (07:36→16:24)
[2019-06-04] MEDS: Ondansetron ODT 4 MG TAB.RAPDIS SL PRN ×2 (07:55→18:56)
[2019-06-04] MEDS: Lactobacillus 1 EACH CAP.SPRINK PO SCH ×2 (10:22→21:19)
[2019-06-04] MEDS: Sennosides/Docusate Sodium TABLET PO SCH ×2 (10:22→21:19)
[2019-06-04] MEDS: Cholecalciferol (D-3) 1,000 UNIT (25MCG) TABLET PO SCH (10:23)
[2019-06-04] MEDS: Furosemide 20 MG TABLET PO SCH (10:23)
[2019-06-04] MEDS: Insulin DETEMIR 100 UNIT/ML X5UNITS SQ SCH ×2 (10:26→21:19)
[2019-06-04] MEDS: *HR* FentaNYL PATCH 25 MCG PATCH TD SCH (12:17)
[2019-06-04] MEDS: *HR* OxyCODONE Immed Rel 5 MG TABLET PO PRN (12:17)
--- NOTE | 2019-06-04 17:49 | Internal Med Progress Note ---
Date of Encounter: 06/04/19 Time of Encounter: 17:40 - Assessment and plan (1) MRSA bacteremia Current Visit: No Status: Acute Assessment and plan: May 09. Continue IV vancomycin through 06/06/2019 with lactobacillus. (2) Back pain Current Visit: Yes Status: Acute Assessment and plan: May 09. Status post L3-4 discitis debridement with laminectomy. Continue IV vancomycin for infection. Duragesic patch has been ordered. Continue other analgesics as needed. May 26. Continue present Rx. Add scheduled Tizanidine June 04. Decrease Duragesic patch to 12 g/hour to avoid oversedation. Qualifiers: Back pain location: low back pain Chronicity: chronic Back pain laterality: midline Sciatica presence: unspecified whether sciatica present Qualified Code(s): M54.5 - Low back pain; G89.29 - Other chronic pain (3) CKD (chronic kidney disease) stage 3, GFR 30-59 ml/min Current Visit: No Status: Chronic Assessment and plan: May 09. Monitor renal indices. May 15. Recheck labs in a.m. May 21. BUN and creatinine were 35 and 1.93 respectively with estimated GFR 34 on 05/19/2019. Continue to monitor periodically. May 23. BUN and creatinine minimally changed at 38 and 1.93 respectively yesterday. Continue present Rx. May 26. Recheck labs in a.m. May 28. Creatinine 2.46 yesterday. Recheck labs in a.m. May 30. Creatinine slightly higher at 2.62. Recheck in a.m. May 31. Creatinine has risen further to 3.16. June 02. Recheck labs in a.m. June 04. I explained to the patient and family again that his creatinine was gradually rising possibly due to vancomycin. He will be seen by ID on 06/06/2019 to determine if additional antibiotics are needed. (4) Atrial fibrillation Current Visit: No Status: Chronic Assessment and plan: May 09. Continue Coumadin and monitor INR. May 15. Check INR in a.m. May 18. INR was 2.0 May 16. Continue to monitor periodically. May 21. Recheck labs in a.m. May 23. INR 2.1 yesterday. Continue present Rx. May 26. Continue Coumadin. Recheck labs in a.m. May 28. INR 2.9 yesterday. Continue Coumadin. Recheck labs in a.m. May 30. INR 3.5. Hold Coumadin and monitor INR. June 02. Recheck labs in a.m. June 04. Recheck INR in a.m. Qualifiers: Atrial fibrillation type: chronic Qualified Code(s): I48.20 - Chronic atrial fibrillation, unspecified (5) Hypertension Current Visit: No Status: Chronic Assessment and plan: May 09. Continue amlodipine and Coreg. May 18. Inadequately controlled. Add Cardura and continue amlodipine and Coreg. May 21. Blood pressure improved. Continue present Rx. May 26. Blood pressure show significant fluctuation. Continue present Rx. May 31. Decrease amlodipine due to edema. Continue Coreg and Cardura. June 02. Blood pressure remains stable. Discontinue amlodipine to see if edema lessens. Continue Coreg and Cardura. June 04. Blood pressures show significant fluctuation but overall acceptable. Continue Coreg and Cardura. Qualifiers: Hypertension type: essential hypertension Qualified Code(s): I10 - Essential (primary) hypertension (6) DM type 2 (diabetes mellitus, type 2) Current Visit: No Status: Chronic Assessment and plan: May 09. Hemoglobin A1c was 11.0% on 02/27/2019. Continue Levemir and Accu-Cheks with SSI. May 15. Blood sugars acceptable. Continue present Rx. Qualifiers: Diabetes mellitus shelter insulin use: with shelter use Diabetes mellitus complication status: with kidney complications Diabetes mellitus complication detail: with chronic kidney disease Chronic kidney disease stage: stage 3 (moderate) Qualified Code(s): E11.22 - Type 2 diabetes mellitus with diabetic chronic kidney disease; N18.3 - Chronic kidney disease, stage 3 (moderate); Z79.4 - care home (current) use of insulin (7) Anemia Current Visit: Yes Status: Acute Assessment and plan: May 09. Anemia testing showed iron 22, transferrin saturation 19%, transferrin 82, ferritin 138, B12 1035, and folate 9.9. A trial of ferrous sulfate and ascorbic acid will be ordered. May 15. Recheck labs in a.m. May 18. Hemoglobin minimally changed to 9.0 on May 16. Continue to monitor periodically. May 21. Recheck labs in a.m. May 23. Hemoglobin improved to 9.3 yesterday. Continue to monitor periodically. May 26. Recheck labs in a.m. May 28. Hemoglobin 8.6 yesterday. Recheck in a.m. May 30. Hemoglobin further decreased to 7.9. Hold Coumadin due to elevated INR and monitor CBC. May 31. Hemoglobin stable at 7.9. Continue to monitor periodically. June 02. Recheck labs in a.m. June 04. Hemoglobin stable at 8.0 yesterday. Recheck in a.m. Qualifiers: Anemia type: unspecified type Qualified Code(s): D64.9 - Anemia, unspecified (8) Gout Current Visit: Yes Status: Acute Assessment and plan: May 09. Uric acid level elevated at 10.4. He will be given prednisone. Allopurinol will be started when acute pain has lessened. May 11. Gout pain has lessened. Continue prednisone and start all opurinol. May 13. Pain has further lessened. Decrease prednisone to 10 mg daily. Continue allopurinol. May 15. Check labs in a.m. May 18. Uric acid level decreased 8.7 on May 16. Continue to monitor. May 21. Recheck labs in a.m. May 23. Uric acid level minimally changed at 7.6. Increase allopurinol to 300 milligrams daily. Discontinue prednisone. May 28. Recheck uric acid level in a.m. May 30. Uric acid further decreased at 7.3. Continue allopurinol 300 mg daily. Qualifiers: Gout site: unspecified site Gout etiology: unspecified cause Chronicity: chronic Presence of tophus: without tophus Qualified Code(s): M1A.9XX0 - Chronic gout, unspecified, without tophus (tophi) - Subjective Interval history: May 09. He has no new complaints. May 11. He has no new complaints except slight left upper thigh/groin pain. May 13. He has no new complaints and feels better with less pain. May 15. He has no new complaints. He denies pain in this foot. His hand pain has continued to lessen. He states low back pain is slightly lessened. May 18. He has no new complaints. He complains of ongoing pain in his legs. His hand pain has further lessened. May 21. He has no new complaints. He states he is having minimal pain in his hands. He was seen in [place] yesterday by neurosurgeon and orthopedic lelia geon with good reports. May 23. He has no new complaints. May 26. He has no new complaints at rest. He states he has back pain with activity. May 28. He has no new complaints. May 30. He has no new complaints. May 31. He has no specific complaints. He reports a moderate BM yesterday with some abdominal discomfort relief. June 02. He has no new complaints. He had day pass yesterday and spent several hours outside the hospital. June 04. He has no new complaints. He feels slightly more groggy than a few days ago. - Constitutional Vitals: Temp Pulse Resp BP Pulse Ox 97.3 F L 70 16 194/73 94 06/04/19 06:40 06/04/19 06:40 06/04/19 06:40 06/04/19 06:40 06/04/19 06:40 Exam: He is sitting in a wheelchair at bedside and appears in no acute distress. He was dozing when I entered the room but awakened and answered questions appropriately. I reviewed his medications and lab results. Internal Medicine: Result - Labs CBC & Chem 7: 06/03/19 06:00 06/03/19 06:00 - ABG Interpretation ABG results: PT/INR, D-dimer PT 35.5 Seconds (9.4-12.1) H 06/03/19 06:00 Consult Discharge Plan - Plan Referrals: Deepali Nguyen, GENERAL LABOR [Primary Care Provider] - 1 week
[2019-06-04] MEDS: *HR* Warfarin 5 MG TABLET PO SCH (18:13)
[2019-06-04] MEDS: *HR* FentaNYL PATCH 12 MCG PATCH TD SCH (18:16)
[2019-06-05] MEDS: Acetaminophen 325 MG TABLET PO SCH ×4 (00:53→17:55)
[2019-06-05] MEDS: Ondansetron ODT 4 MG TAB.RAPDIS SL PRN (06:06)
[2019-06-05 06:25] LABS: Basophils % 0.2 %; Eosinophils # 0.1 K/mcL (0.0-0.6); Eosinophils % 2.5 %; Hematocrit 26.5 % (37.5-50.1); Hemoglobin 8.4 g/dL (12.9-16.9); Immature Granulocytes % 0.6 % (0-4); Lymphocytes % 40.4 %; Mean Corpuscular HGB Conc 31.7 g/dL (31.6-35.5); Mean Corpuscular Hemoglobin 30.7 pg (28.0-33.3); Mean Corpuscular Volume 96.7 fL (83.0-100.0); Mean Platelet Volume 9.4 fL (9.4-12.4); Monocytes # 0.4 K/mcL (0.0-1.3); Monocytes % 7.9 %; Neutrophils # 2.3 K/mcL (1.6-8.9); Platelet Count 207 K/mcL (140-400); Red Blood Count 2.74 M/mcL (4.19-5.50); Segmented Neutrophils % 48.4 %; White Blood Count 4.8 K/mcL (4.3-11.1)
[2019-06-05] MEDS: Levothyroxine 25 MCG TABLET PO SCH (06:44)
[2019-06-05] MEDS: tiZANidine 4 MG TABLET PO SCH ×2 (06:44→13:00)
[2019-06-05] MEDS: Ascorbic Acid 500 MG TABLET PO SCH (06:44)
[2019-06-05 07:06] LABS: INR 3.4; Prothrombin Time 38.4 Seconds (9.4-12.1)
[2019-06-05 07:14] LABS: Calcium 8.1 mg/dL (8.6-10.3); Potassium 4.9 mEq/L (3.5-5.1)
[2019-06-05] MEDS: Insulin LISPRO 300 UNITS/3 ML VIAL SQ SCH ×3 (08:19→16:35)
[2019-06-05] MEDS: Cholecalciferol (D-3) 1,000 UNIT (25MCG) TABLET PO SCH (09:40)
[2019-06-05] MEDS: Lactobacillus 1 EACH CAP.SPRINK PO SCH (09:41)
[2019-06-05] MEDS: Sennosides/Docusate Sodium TABLET PO SCH (09:41)
[2019-06-05] MEDS: Insulin DETEMIR 100 UNIT/ML X5UNITS SQ SCH (09:43)
[2019-06-05] MEDS: Furosemide 20 MG TABLET PO SCH (09:51)
[2019-06-05] MEDS ORDERED: Promethazine 12.5 MG in 0.9 % Sodium Chloride 50 ML IVPB PRN (14:34)
[2019-06-05] MEDS ORDERED: *HR* Promethazine 25 MG/ML VIAL IVP PRN (14:43)
[2019-06-05] MEDS: Ondansetron 4 MG/2 ML VIAL IVP PRN (23:03)
[2019-06-06] MEDS: Lactobacillus 1 EACH CAP.SPRINK PO SCH ×3 (02:42→20:50)
[2019-06-06] MEDS: Sennosides/Docusate Sodium TABLET PO SCH ×3 (02:43→20:50)
[2019-06-06] MEDS: Acetaminophen 325 MG TABLET PO SCH ×4 (02:43→17:03)
[2019-06-06] MEDS: Insulin DETEMIR 100 UNIT/ML X5UNITS SQ SCH ×3 (02:43→20:51)
[2019-06-06] MEDS: tiZANidine 4 MG TABLET PO SCH ×4 (02:43→20:49)
[2019-06-06] MEDS: Ondansetron 4 MG/2 ML VIAL IVP PRN ×2 (04:39→08:46)
[2019-06-06] MEDS: Insulin LISPRO 300 UNITS/3 ML VIAL SQ SCH ×3 (07:40→16:43)
[2019-06-06] MEDS: Ascorbic Acid 500 MG TABLET PO SCH (07:40)
[2019-06-06] MEDS: Levothyroxine 25 MCG TABLET PO SCH (07:40)
[2019-06-06] MEDS: Doxycycline 100 MG CAPSULE PO SCH ×2 (09:08→20:50)
[2019-06-06] MEDS: Furosemide 20 MG TABLET PO SCH (09:08)
[2019-06-06] MEDS: Cholecalciferol (D-3) 1,000 UNIT (25MCG) TABLET PO SCH (09:08)
[2019-06-06] MEDS: *HR* OxyCODONE Immed Rel 5 MG TABLET PO PRN (10:58)
[2019-06-06] MEDS ORDERED: Aminoglycoside Consult 1 EACH MC ONE (17:19)
[2019-06-06] MEDS ORDERED: *HR* Promethazine 25 MG/ML VIAL IM PRN (21:34)
[2019-06-06] MEDS: Ondansetron ODT 4 MG TAB.RAPDIS SL PRN (21:50)
[2019-06-07] MEDS: Acetaminophen 325 MG TABLET PO SCH ×5 (00:16→16:59)
[2019-06-07] MEDS: Levothyroxine 25 MCG TABLET PO SCH ×2 (06:02→06:15)
[2019-06-07] MEDS: Ondansetron ODT 4 MG TAB.RAPDIS SL PRN (06:04)
[2019-06-07] MEDS: tiZANidine 4 MG TABLET PO SCH ×4 (06:04→20:42)
[2019-06-07] MEDS: Ascorbic Acid 500 MG TABLET PO SCH ×2 (06:04→06:15)
[2019-06-07] MEDS: Doxycycline 100 MG CAPSULE PO SCH ×2 (10:20→20:42)
[2019-06-07] MEDS: Furosemide 20 MG TABLET PO SCH (10:21)
[2019-06-07] MEDS: Cholecalciferol (D-3) 1,000 UNIT (25MCG) TABLET PO SCH (10:21)
[2019-06-07] MEDS: *HR* OxyCODONE Immed Rel 5 MG TABLET PO PRN (10:22)
[2019-06-07] MEDS: Lactobacillus 1 EACH CAP.SPRINK PO SCH ×2 (10:22→20:42)
[2019-06-07] MEDS: Insulin DETEMIR 100 UNIT/ML X5UNITS SQ SCH ×2 (10:23→20:43)
[2019-06-07] MEDS: Sennosides/Docusate Sodium TABLET PO SCH ×2 (10:23→20:42)
[2019-06-07] MEDS: Insulin LISPRO 300 UNITS/3 ML VIAL SQ SCH ×3 (10:24→17:00)
[2019-06-07] MEDS: *HR* FentaNYL PATCH 12 MCG PATCH TD SCH (17:04)
[2019-06-08] MEDS: Acetaminophen 325 MG TABLET PO SCH ×4 (00:15→17:08)
[2019-06-08] MEDS: Ondansetron ODT 4 MG TAB.RAPDIS SL PRN (05:20)
[2019-06-08] MEDS: Levothyroxine 25 MCG TABLET PO SCH (06:17)
[2019-06-08] MEDS: tiZANidine 4 MG TABLET PO SCH ×3 (06:17→22:18)
[2019-06-08] MEDS: Ascorbic Acid 500 MG TABLET PO SCH (06:17)
[2019-06-08] MEDS: Sennosides/Docusate Sodium TABLET PO SCH ×2 (08:37→20:57)
[2019-06-08] MEDS: Lactobacillus 1 EACH CAP.SPRINK PO SCH ×2 (08:37→20:57)
[2019-06-08] MEDS: Insulin DETEMIR 100 UNIT/ML X5UNITS SQ SCH ×2 (08:37→22:19)
[2019-06-08] MEDS: Doxycycline 100 MG CAPSULE PO SCH ×2 (08:37→20:57)
[2019-06-08] MEDS: Cholecalciferol (D-3) 1,000 UNIT (25MCG) TABLET PO SCH (08:37)
[2019-06-08] MEDS: Furosemide 20 MG TABLET PO SCH (08:37)
[2019-06-08] MEDS: Insulin LISPRO 300 UNITS/3 ML VIAL SQ SCH ×3 (08:43→16:14)
[2019-06-08] MEDS: *HR* OxyCODONE Immed Rel 5 MG TABLET PO PRN (22:18)
[2019-06-09] MEDS: Acetaminophen 325 MG TABLET PO SCH ×4 (00:23→16:48)
[2019-06-09] MEDS: *HR* OxyCODONE Immed Rel 5 MG TABLET PO PRN (03:44)
[2019-06-09] MEDS: Levothyroxine 25 MCG TABLET PO SCH (06:15)
[2019-06-09] MEDS: tiZANidine 4 MG TABLET PO SCH ×3 (06:15→21:48)
[2019-06-09] MEDS: Ascorbic Acid 500 MG TABLET PO SCH (06:15)
[2019-06-09 07:57] LABS: Basophils % 0.2 %; Eosinophils # 0.2 K/mcL (0.0-0.6); Hematocrit 26.1 % (37.5-50.1); Hemoglobin 8.3 g/dL (12.9-16.9); Immature Granulocytes % 0.4 % (0-4); Lymphocytes # 1.9 K/mcL (0.6-4.6); Lymphocytes % 41.2 %; Mean Corpuscular HGB Conc 31.8 g/dL (31.6-35.5); Mean Corpuscular Hemoglobin 30.6 pg (28.0-33.3); Mean Corpuscular Volume 96.3 fL (83.0-100.0); Mean Platelet Volume 9.5 fL (9.4-12.4); Monocytes # 0.5 K/mcL (0.0-1.3); Monocytes % 11.3 %; Neutrophils # 1.9 K/mcL (1.6-8.9); Platelet Count 202 K/mcL (140-400); Red Blood Count 2.71 M/mcL (4.19-5.50); Red Cell Distribution Width 16.7 % (11.5-14.5); Segmented Neutrophils % 41.9 %; White Blood Count 4.6 K/mcL (4.3-11.1)
[2019-06-09 08:07] LABS: INR 2.5; Prothrombin Time 28.1 Seconds (9.4-12.1)
[2019-06-09 08:16] LABS: Calcium 7.8 mg/dL (8.6-10.3); Potassium 4.4 mEq/L (3.5-5.1)
[2019-06-09] MEDS: Insulin LISPRO 300 UNITS/3 ML VIAL SQ SCH ×3 (08:20→16:34)
[2019-06-09] MEDS: Furosemide 20 MG TABLET PO SCH (08:33)
[2019-06-09] MEDS: Doxycycline 100 MG CAPSULE PO SCH ×2 (08:33→21:47)
[2019-06-09] MEDS: Cholecalciferol (D-3) 1,000 UNIT (25MCG) TABLET PO SCH (08:33)
[2019-06-09] MEDS: Lactobacillus 1 EACH CAP.SPRINK PO SCH ×2 (08:33→21:47)
[2019-06-09] MEDS: Sennosides/Docusate Sodium TABLET PO SCH ×2 (08:33→21:47)
[2019-06-09] MEDS: Insulin DETEMIR 100 UNIT/ML X5UNITS SQ SCH ×2 (08:33→21:48)
--- NOTE | 2019-06-09 11:00 | Internal Med Progress Note ---
Date of Encounter: 06/09/19 Time of Encounter: 10:20 - Assessment and plan (1) MRSA bacteremia Current Visit: No Status: Acute Assessment and plan: May 09. Continue IV vancomycin through 06/06/2019 with lactobacillus. June 09. Vancomycin was discontinued after office visit with [facility] staff on 06/06/2019. PICC line was removed. He will continue on oral doxycycline and lactobacillus for now. (2) Back pain Current Visit: Yes Status: Acute Assessment and plan: May 09. Status post L3-4 discitis debridement with laminectomy. Continue IV vancomycin for infection. Duragesic patch has been ordered. Continue other analgesics as needed. May 26. Continue present Rx. Add scheduled Tizanidine June 04. Decrease Duragesic patch to 12 g/hour to avoid oversedation. Qualifiers: Back pain location: low back pain Chronicity: chronic Back pain laterality: midline Sciatica presence: unspecified whether sciatica present Qualified Code(s): M54.5 - Low back pain; G89.29 - Other chronic pain (3) CKD (chronic kidney disease) stage 3, GFR 30-59 ml/min Current Visit: No Status: Chronic Assessment and plan: May 09. Monitor renal indices. May 15. Recheck labs in a.m. May 21. BUN and creatinine were 35 and 1.93 respectively with estimated GFR 34 on 05/19/2019. Continue to monitor periodically. May 23. BUN and creatinine minimally changed at 38 and 1.93 respectively yesterday. Continue present Rx. May 26. Recheck labs in a.m. May 28. Creatinine 2.46 yesterday. Recheck labs in a.m. May 30. Creatinine slightly higher at 2.62. Recheck in a.m. May 31. Creatinine has risen further to 3.16. June 02. Recheck labs in a.m. June 04. I explained to the patient and family again that his creatinine was gradually rising possibly due to vancomycin. He will be seen by ID on 06/06/2019 to determine if additional antibiotics are needed. June 09. Creatinine has decreased slightly to 3.39 with estimated GFR 18. Continue to monitor. (4) Atrial fibrillation Current Visit: No Status: Chronic Assessment and plan: May 09. Continue Coumadin and monitor INR. May 15. Check INR in a.m. May 18. INR was 2.0 May 16. Continue to monitor periodically. May 21. Recheck labs in a.m. May 23. INR 2.1 yesterday. Continue present Rx. May 26. Continue Coumadin. Recheck labs in a.m. May 28. INR 2.9 yesterday. Continue Coumadin. Recheck labs in a.m. May 30. INR 3.5. Hold Coumadin and monitor INR. June 02. Recheck labs in a.m. June 04. Recheck INR in a.m. June 09. INR satisfactory 2.5. Continue present Coumadin regimen. Qualifiers: Atrial fibrillation type: chronic Qualified Code(s): I48.20 - Chronic atrial fibrillation, unspecified (5) Hypertension Current Visit: No Status: Chronic Assessment and plan: May 09. Continue amlodipine and Coreg. May 18. Inadequately controlled. Add Cardura and continue amlodipine and Coreg. May 21. Blood pressure improved. Continue present Rx. May 26. Blood pressure show significant fluctuation. Continue present Rx. May 31. Decrease amlodipine due to edema. Continue Coreg and Cardura. June 02. Blood pressure remains stable. Discontinue amlodipine to see if edema lessens. Continue Coreg and Cardura. June 04. Blood pressures show significant fluctuation but overall acceptable. Continue Coreg and Cardura. Qualifiers: Hypertension type: essential hypertension Qualified Code(s): I10 - Essential (primary) hypertension (6) DM type 2 (diabetes mellitus, type 2) Current Visit: No Status: Chronic Assessment and plan: May 09. Hemoglobin A1c was 11.0% on 02/27/2019. Continue Levemir and Accu-Cheks with SSI. May 15. Blood sugars acceptable. Continue present Rx. Qualifiers: Diabetes mellitus exterminator insulin use: with exterminator use Diabetes mellitus complication status: with kidney complications Diabetes mellitus complication detail: with chronic kidney disease Chronic kidney disease stage: stage 3 (moderate) Qualified Code(s): E11.22 - Type 2 diabetes mellitus with diabetic chronic kidney disease; N18.3 - Chronic kidney disease, stage 3 (moderate); Z79.4 - ferry terminal agent (current) use of insulin (7) Anemia Current Visit: Yes Status: Acute Assessment and plan: May 09. Anemia testing showed iron 22, transferrin saturation 19%, transferrin 82, ferritin 138, B12 1035, and folate 9.9. A trial of ferrous sulfate and ascorbic acid will be ordered. May 15. Recheck labs in a.m. May 18. Hemoglobin minimally changed to 9.0 on May 16. Continue to monitor periodically. May 21. Recheck labs in a.m. May 23. Hemoglobin improved to 9.3 yesterday. Continue to monitor periodically. May 26. Recheck labs in a.m. May 28. Hemoglobin 8.6 yesterday. Recheck in a.m. May 30. Hemoglobin further decreased to 7.9. Hold Coumadin due to elevated INR and monitor CBC. May 31. Hemoglobin stable at 7.9. Continue to monitor periodically. June 02. Recheck labs in a.m. June 04. Hemoglobin stable at 8.0 yesterday. Recheck in a.m. June 09. Hemoglobin 8.3 today. Continue to monitor. Qualifiers: Anemia type: unspecified type Qualified Code(s): D64.9 - Anemia, unspecified (8) Gout Current Visit: Yes Status: Acute Assessment and plan: May 09. Uric acid level elevated at 10.4. He will be given prednisone. Allopurinol will be started when acute pain has lessened. May 11. Gout pain has lessened. Continue prednisone and start allopurinol. May 13. Pain has further lessened. Decrease prednisone to 10 mg daily. Continue allopurinol. May 15. Check labs in a.m. May 18. Uric acid level decreased 8.7 on May 16. Continue to monitor. May 21. Recheck labs in a.m. May 23. Uric acid level minimally changed at 7.6. Increase allopurinol to 300 milligrams daily. Discontinue prednisone. May 28. Recheck uric acid level in a.m. May 30. Uric acid further decreased at 7.3. Continue allopurinol 300 mg daily. Qualifiers: Gout site: unspecified site Gout etiology: unspecified cause Chronicity: chronic Presence of tophus: without tophus Qualified Code(s): M1A.9XX0 - Chronic gout, unspecified, without tophus (tophi) - Subjective Interval history: May 09. He has no new complaints. May 11. He has no new complaints except slight left upper thigh/groin viji n. May 13. He has no new complaints and feels better with less pain. May 15. He has no new complaints. He denies pain in this foot. His hand pain has continued to lessen. He states low back pain is slightly lessened. May 18. He has no new complaints. He complains of ongoing pain in his legs. His hand pain has further lessened. May 21. He has no new complaints. He states he is having minimal pain in his hands. He was seen in [place] yesterday by neurosurgeon and orthopedic surgeon with good reports. May 23. He has no new complaints. May 26. He has no new complaints at rest. He states he has back pain with activity. May 28. He has no new complaints. May 30. He has no new complaints. May 31. He has no specific complaints. He reports a moderate BM yesterday with some abdominal discomfort relief. June 02. He has no new complaints. He had day pass yesterday and spent several hours outside the hospital. June 04. He has no new complaints. He feels slightly more groggy than a few days ago. June 09. He has no new complaints. He went on day pass yesterday and had no complications. - Constitutional Vitals: Temp Pulse Resp BP Pulse Ox 96.0 F L 70 18 112/61 94 06/09/19 06:40 06/09/19 06:40 06/09/19 06:40 06/09/19 06:40 06/09/19 06:40 Exam: He is resting comfortably in bed and appears in no acute distress. His affect is cheerful. I reviewed his medications and lab results. Internal Medicine: Result - Labs CBC & Chem 7: 06/09/19 07:44 06/09/19 07:44 Labs: Short CBC 06/09/19 Range/Units 07:44 WBC 4.6 (4.3-11.1) K/mcL Hgb 8.3 L (12.9-16.9) g/dL Hct 26.1 L (37.5-50.1) % Plt Count 202 (140-400) K/mcL Neutrophils # 1.9 (1.6-8.9) K/mcL BMP 06/09/19 07:44 Sodium 136 Potassium 4.4 Chloride 103 Carbon Dioxide 29 BUN 52 H Creatinine 3.39 H Glucose 133 H Calcium 7.8 L - ABG Interpretation ABG results: PT/INR, D-dimer PT 28.1 Seconds (9.4-12.1) H 06/09/19 07:44 Consult Discharge Plan - Plan Referrals: Deepali Nguyen CNP [Primary Care Provider] - 1 week
[2019-06-10] MEDS: Acetaminophen 325 MG TABLET PO SCH ×4 (00:11→17:28)
[2019-06-10] MEDS: tiZANidine 4 MG TABLET PO SCH ×3 (06:16→20:11)
[2019-06-10] MEDS: Ascorbic Acid 500 MG TABLET PO SCH (06:17)
[2019-06-10] MEDS: Levothyroxine 25 MCG TABLET PO SCH (06:17)
[2019-06-10] MEDS: Insulin LISPRO 300 UNITS/3 ML VIAL SQ SCH ×3 (07:43→16:47)
[2019-06-10] MEDS: Sennosides/Docusate Sodium TABLET PO SCH ×2 (08:33→20:10)
[2019-06-10] MEDS: Doxycycline 100 MG CAPSULE PO SCH ×2 (08:33→20:11)
[2019-06-10] MEDS: Cholecalciferol (D-3) 1,000 UNIT (25MCG) TABLET PO SCH (08:33)
[2019-06-10] MEDS: Furosemide 20 MG TABLET PO SCH (08:33)
[2019-06-10] MEDS: Lactobacillus 1 EACH CAP.SPRINK PO SCH ×2 (08:33→20:12)
[2019-06-10] MEDS: *HR* OxyCODONE Immed Rel 5 MG TABLET PO PRN ×2 (08:33→12:53)
[2019-06-10] MEDS: Insulin DETEMIR 100 UNIT/ML X5UNITS SQ SCH ×2 (09:10→20:11)
[2019-06-10] MEDS: *HR* Warfarin 2.5 MG TABLET PO SCH (17:29)
[2019-06-10] MEDS: *HR* FentaNYL PATCH 12 MCG PATCH TD SCH (17:29)
--- NOTE | 2019-06-10 18:13 | Internal Med Progress Note ---
Date of Encounter: 06/10/19 Time of Encounter: 18:00 - Assessment and plan (1) MRSA bacteremia Current Visit: No Status: Acute Assessment and plan: May 09. Continue IV vancomycin through 06/06/2019 with lactobacillus. June 09. Vancomycin was discontinued after office visit with [facility] staff on 06/06/2019. PICC line was removed. He will continue on oral doxycycline and lactobacillus for now. (2) Back pain Current Visit: Yes Status: Acute Assessment and plan: May 09. Status post L3-4 discitis debridement with laminectomy. Continue IV vancomycin for infection. Duragesic patch has been ordered. Continue other analgesics as needed. May 26. Continue present Rx. Add scheduled Tizanidine June 04. Decrease Duragesic patch to 12 g/hour to avoid oversedation. June 10. Continue present Rx. Because of his back pain and foot surgery he has mobility limitation that impairs his ability to do toileting dressing grooming and bathing. Limitation cannot be improved with a cane or walker. Using a manual wheelchair will significantly improve his ability to participate in daily activities in the home. He is agreeable to use a wheelchair on a regular basis. He has upper externally function and other physical and mental capabilities needed to safely propel the wheelchair in the home. He also has caregivers available and willing to provide assistance with the wheelchair if needed. He requires frequent changes in body position and requires positioning of the body in ways not feasible with an ordinary bed to alleviate pain. He also requires equipment which can only be attached to a hospital bed. Qualifiers: Back pain location: low back pain Chronicity: chronic Back pain laterality: midline Sciatica presence: unspecified whether sciatica present Qualified Code(s): M54.5 - Low back pain; G89.29 - Other chronic pain (3) CKD (chronic kidney disease) stage 3, GFR 30-59 ml/min Current Visit: No Status: Chronic Assessment and plan: May 09. Monitor renal indices. May 15. Recheck labs in a.m. May 21. BUN and creatinine were 35 and 1.93 respectively with estimated GFR 34 on 05/19/2019. Continue to monitor periodically. May 23. BUN and creatinine minimally changed at 38 and 1.93 respectively yesterday. Continue present Rx. May 26. Recheck labs in a.m. May 28. Creatinine 2.46 yesterday. Recheck labs in a.m. May 30. Creatinine slightly higher at 2.62. Recheck in a.m. May 31. Creatinine has risen further to 3.16. June 02. Recheck labs in a.m. June 04. I explained to the patient and family again that his creatinine was gradually rising possibly due to vancomycin. He will be seen by ID on 06/06/2019 to determine if additional antibiotics are needed. June 09. Creatinine has decreased slightly to 3.39 with estimated GFR 18. Continue to monitor. June 10. Recheck labs 06/13/2019 (4) Atrial fibrillation Current Visit: No Status: Chronic Assessment and plan: May 09. Continue Coumadin and monitor INR. May 15. Check INR in a.m. May 18. INR was 2.0 May 16. Continue to monitor periodically. May 21. Recheck labs in a.m. May 23. INR 2.1 yesterday. Continue present Rx. May 26. Continue Coumadin. Recheck labs in a.m. May 28. INR 2.9 yesterday. Continue Coumadin. Recheck labs in a.m. May 30. INR 3.5. Hold Coumadin and monitor INR. June 02. Recheck labs in a.m. June 04. Recheck INR in a.m. June 09. INR satisfactory 2.5. Continue present Coumadin regimen. June 10. Recheck labs 06/13/2019. Qualifiers: Atrial fibrillation type: paroxysmal Qualified Code(s): I48.0 - Paroxysmal atrial fibrillation (5) Hypertension Current Visit: No Status: Chronic Assessment and plan: May 09. Continue amlodipine and Coreg. May 18. Inadequately controlled. Add Cardura and continue amlodipine and Coreg. May 21. Blood pressure improved. Continue present Rx. May 26. Blood pressure show significant fluctuation. Continue present Rx. May 31. Decrease amlodipine due to edema. Continue Coreg and Cardura. June 02. Blood pressure remains stable. Discontinue amlodipine to see if edema lessens. Continue Coreg and Cardura. June 04. Blood pressures show significant fluctuation but overall acceptable. Continue Coreg and Cardura. Qualifiers: Hypertension type: essential hypertension Qualified Code(s): I10 - Ess ential (primary) hypertension (6) DM type 2 (diabetes mellitus, type 2) Current Visit: No Status: Chronic Assessment and plan: May 09. Hemoglobin A1c was 11.0% on 02/27/2019. Continue Levemir and Accu-Cheks with SSI. May 15. Blood sugars acceptable. Continue present Rx. Qualifiers: Diabetes mellitus long term care social worker insulin use: with nursing home use Diabetes mellitus complication status: with kidney complications Diabetes mellitus complication detail: with chronic kidney disease Chronic kidney disease stage: stage 3 (moderate) Qualified Code(s): E11.22 - Type 2 diabetes mellitus with diabetic chronic kidney disease; N18.3 - Chronic kidney disease, stage 3 (moderate); Z79.4 - care home (current) use of insulin (7) Anemia Current Visit: Yes Status: Acute Assessment and plan: May 09. Anemia testing showed iron 22, transferrin saturation 19%, tra nsferrin 82, ferritin 138, B12 1035, and folate 9.9. A trial of ferrous sulfate and ascorbic acid will be ordered. May 15. Recheck labs in a.m. May 18. Hemoglobin minimally changed to 9.0 on May 16. Continue to monitor periodically. May 21. Recheck labs in a.m. May 23. Hemoglobin improved to 9.3 yesterday. Continue to monitor periodically. May 26. Recheck labs in a.m. May 28. Hemoglobin 8.6 yesterday. Recheck in a.m. May 30. Hemoglobin further decreased to 7.9. Hold Coumadin due to elevated INR and monitor CBC. May 31. Hemoglobin stable at 7.9. Continue to monitor periodically. June 02. Recheck labs in a.m. June 04. Hemoglobin stable at 8.0 yesterday. Recheck in a.m. June 09. Hemoglobin 8.3 today. Continue to monitor. June 10. Recheck labs 06/13/2019. Qualifiers: Anemia type: unspecified type Qualified Code(s): D64.9 - Anemia, unspec ified (8) Gout Current Visit: Yes Status: Acute Assessment and plan: May 09. Uric acid level elevated at 10.4. He will be given prednisone. Allopurinol will be started when acute pain has lessened. May 11. Gout pain has lessened. Continue prednisone and start allopurinol. May 13. Pain has further lessened. Decrease prednisone to 10 mg daily. Continue allopurinol. May 15. Check labs in a.m. May 18. Uric acid level decreased 8.7 on May 16. Continue to monitor. May 21. Recheck labs in a.m. May 23. Uric acid level minimally changed at 7.6. Increase allopurinol to 300 milligrams daily. Discontinue prednisone. May 28. Recheck uric acid level in a.m. May 30. Uric acid further decreased at 7.3. Continue allopurinol 300 mg daily. June 10. Recheck labs in 06/13/2019. Qualifiers: Gout site: unspecified site Gout etiology: unspecified cause Chronicity: chronic Presence of tophus: without tophus Qualified Code(s): M1A.9XX0 - Chronic gout, unspecified, without tophus (tophi) - Subjective Interval history: May 09. He has no new complaints. May 11. He has no new complaints except slight left upper thigh/groin pain. May 13. He has no new complaints and feels better with less pain. May 15. He has no new complaints. He denies pain in this foot. His hand pain has continued to lessen. He states low back pain is slightly lessened. May 18. He has no new complaints. He complains of ongoing pain in his legs. His hand pain has further lessened. May 21. He has no new complaints. He states he is having minimal pain in his hands. He was seen in [place] yesterday by neurosurgeon and orthopedic surgeon with good reports. May 23. He has no new complaints. May 26. He has no new complaints at rest. He states he has back pain with activity. May 28. He has no new complaints. May 30. He has no new complaints. May 31. He has no specific complaints. He reports a moderate BM yesterday with some abdominal discomfort relief. June 02. He has no new complaints. He had day pass yesterday and spent several hours outside the hospital. June 04. He has no new complaints. He feels slightly more groggy than a few days ago. June 09. He has no new complaints. He went on day pass yesterday and had no complications. June 10. He has no new complaints except slight back pain. He received [facility] today with discharge anticipated on 06/13/2019. - Constitutional Vitals: Temp Pulse Resp BP Pulse Ox 97.5 F L 75 16 107/59 94 06/10/19 17:46 06/10/19 17:46 06/10/19 17:46 06/10/19 17:46 06/10/19 17:46 Exam: He is resting comfortable in bed and appears in no acute distress. His affect is cheerful. He is appropriate in conversation. His lower legs show 1+ edema bilaterally. I reviewed his medications and lab results. Internal Medicine: Result - Labs CBC & Chem 7: 06/09/19 07:44 06/09/19 07:44 - ABG Interpretation ABG results: PT/INR, D-dimer PT 28.1 Seconds (9.4-12.1) H 06/09/19 07:44 Consult Discharge Plan - Plan Referrals: Deepali Nguyen, COMMISSARY ASSISTANT [Primary Care Provider] - 1 week
[2019-06-11] MEDS: Acetaminophen 325 MG TABLET PO SCH ×5 (01:30→23:14)
[2019-06-11] MEDS: Levothyroxine 25 MCG TABLET PO SCH (05:41)
[2019-06-11] MEDS: Ascorbic Acid 500 MG TABLET PO SCH (05:42)
[2019-06-11] MEDS: tiZANidine 4 MG TABLET PO SCH ×3 (05:42→20:23)
[2019-06-11] MEDS: *HR* OxyCODONE Immed Rel 5 MG TABLET PO PRN ×2 (08:21→16:22)
[2019-06-11] MEDS: Cholecalciferol (D-3) 1,000 UNIT (25MCG) TABLET PO SCH (08:21)
[2019-06-11] MEDS: Sennosides/Docusate Sodium TABLET PO SCH ×2 (08:22→20:23)
[2019-06-11] MEDS: Insulin LISPRO 300 UNITS/3 ML VIAL SQ SCH ×3 (08:22→16:23)
[2019-06-11] MEDS: Furosemide 20 MG TABLET PO SCH (08:22)
[2019-06-11] MEDS: Insulin DETEMIR 100 UNIT/ML X5UNITS SQ SCH ×2 (08:22→20:24)
[2019-06-11] MEDS: Lactobacillus 1 EACH CAP.SPRINK PO SCH ×2 (08:22→20:23)
[2019-06-11] MEDS: Doxycycline 100 MG CAPSULE PO SCH ×2 (08:22→20:23)
[2019-06-11] MEDS: *HR* Warfarin 5 MG TABLET PO SCH (16:21)
[2019-06-12] MEDS: *HR* OxyCODONE Immed Rel 5 MG TABLET PO PRN ×3 (00:47→13:54)
[2019-06-12] MEDS: Ascorbic Acid 500 MG TABLET PO SCH (05:38)
[2019-06-12] MEDS: Acetaminophen 325 MG TABLET PO SCH ×2 (05:38→12:35)
[2019-06-12] MEDS: Levothyroxine 25 MCG TABLET PO SCH (05:39)
[2019-06-12] MEDS: tiZANidine 4 MG TABLET PO SCH ×2 (05:39→13:53)
[2019-06-12 07:16] VITALS: BP 143/66
[2019-06-12] MEDS: Doxycycline 100 MG CAPSULE PO SCH (09:22)
[2019-06-12] MEDS: Lactobacillus 1 EACH CAP.SPRINK PO SCH (09:22)
[2019-06-12] MEDS: Furosemide 20 MG TABLET PO SCH (09:22)
[2019-06-12] MEDS: Sennosides/Docusate Sodium TABLET PO SCH (09:22)
[2019-06-12] MEDS: Cholecalciferol (D-3) 1,000 UNIT (25MCG) TABLET PO SCH (09:23)
[2019-06-12] MEDS: Insulin DETEMIR 100 UNIT/ML X5UNITS SQ SCH (09:24)
[2019-06-12] MEDS: Insulin LISPRO 300 UNITS/3 ML VIAL SQ SCH ×2 (09:25→12:35)
--- NOTE | 2019-06-12 15:23 | Discharge Summary ---
Date of Encounter: 06/12/19 Time of Encounter: 15:05 - Discharge Diagnosis (1) MRSA bacteremia Priority: Primary Status: Acute (2) Back pain Priority: Secondary Status: Acute Qualifiers: Back pain location: low back pain Chronicity: chronic Back pain laterality: midline Sciatica presence: unspecified whether sciatica present Qualified Code(s): M54.5 - Low back pain; G89.29 - Other chronic pain (3) CKD (chronic kidney disease) stage 3, GFR 30-59 ml/min Priority: Secondary Status: Chronic (4) Atrial fibrillation Priority: Secondary Status: Chronic Qualifiers: Atrial fibrillation type: paroxysmal Qualified Code(s): I48.0 - Paroxysmal atrial fibrillation (5) Hypertension Priority: Secondary Status: Chronic Qualifiers: Hypertension type: essential hypertension Qualified Code(s): I10 - Essential (primary) hypertension (6) DM type 2 (diabetes mellitus, type 2) Priority: Secondary Status: Chronic Qualifiers: Diabetes mellitus librarian specialist insulin use: with jail use Diabetes mellitus complication status: with kidney complications Diabetes mellitus complication detail: with chronic kidney disease Chronic kidney disease stage: stage 3 (moderate) Qualified Code(s): E11.22 - Type 2 diabetes mellitus with diabetic chronic kidney disease; N18.3 - Chronic kidney disease, stage 3 (moderate); Z79.4 - assisted (current) use of insulin (7) Anemia Priority: Secondary Status: Acute Qualifiers: Anemia type: unspecified type Qualified Code(s): D64.9 - Anemia, unspecified (8) Gout Priority: Secondary Status: Acute Qualifiers: Gout site: unspecified site Gout etiology: unspecified cause Chronicity: chronic Presence of tophus: without tophus Qualified Code(s): M1A.9XX0 - Chronic gout, unspecified, without tophus (tophi) Hospital course: Mr. Green is a 74 year old male who was transferred to [facility] swing bed after April 10-May 07 stay at [facility]. He was transferred there from [facility] inpatient after MRSA bacteremia was documented. He was found to have right foot abscess on MRI and underwent I/D. He was also found to have right psoas abscess drained by IR 04/18/2019. He had L3-4 discitis/osteomyelitis and had NSG decompression 05/01/2019. He was started on IV vancomycin, rifampin, and Zyvox initially but narrowed to only vancomycin with stop date June 06 to be followed by doxycycline 100 mg twice a day with stop date TBD after follow up with ID. PICC line was placed for initiation of IV antibiotics. PT and OT was ordered for muscle strengthening prior to returning to independent living. IV vancomycin was continued through June 06. At the follow-up visit with his [place] physicians vancomycin is discontinued and PICC line was removed. He remained on oral doxycycline and will continue this at discharge. A seven-day prescription doxycycline was given with additional Rx to be ordered by his PCP or [place] physicians. He was given Duragesic patch in addition to oral pain medicine. The patch was tapered down to 12 g per hour dose several days prior to discharge. He will not continue Duragesic patch at discharge. Creatinine gradually increased with ongoing vancomycin. Creatinine had d ecreased to 3.39 on 06/09/2019 following discontinuation of vancomycin. His PCP can continue to monitor. Blood sugars remained adequately controlled on Levemir 5 units twice a day. His home dose of Lantus will be changed to 10 units daily. Blood pressure remain satisfactorily controlled on amlodipine and Coreg. He was given allopurinol for hyperuricemia. Uric acid level and decreased to 7.3 on May 29 and diffuse myalgias/arthralgias had lessened. He will continue this at discharge. Anemia testing showed iron 22, transferrin saturation 19%, transferrin 82, ferritin 138, B12 1035, and folate 19.9 on May 09. He will continue ferrous sulfate with ascorbic acid at discharge. He will be discharged home today and follow with his PCP Deepali Nguyen CNP within 1 week. He will follow with his [place] physicians for postop care as directed. Home health services will be ordered. - Time Spent with Patient Total time spent providing and/or coordinating discharge services: - Discharge Medications Prescriptions: New Doxazosin [Cardura] 4 mg PO HS #30 tablet Carvedilol [Coreg] 25 mg PO BIDWM #60 tablet Doxycycline 100 mg PO BID #14 capsule Ferrous Sulfate 325 mg PO DAILY@0630 #30 tablet Albuterol Sulfate [Proventil Inhaler] 2 puff IH [id number] PRN #1 inhaler PRN Reason: Wheezing Tizanidine HCl 2 mg PO Q8H #21 tablet Ascorbic Acid [Vitamin C] 500 mg PO DAILY@0630 #30 tablet Allopurinol [Zyloprim 300 MG] 300 mg PO DAILY #30 tablet Continued Cholecalciferol (Vitamin D3) [Vitamin D3] 50,000 unit PO WD Warfarin [Coumadin] 2.5 mg PO DAILY Trazodone HCl 150 mg PO HS Simvastatin [Zocor] 20 mg PO HS Carvedilol [Coreg] 25 mg PO DAILY Hydrocodone/Acetaminophen [Hydrocodon-Acetaminophen 5-325] 1 each PO Q6H PRN PRN Reason: Pain DULoxetine [Cymbalta] 20 mg PO BID #60 Changed Insulin Glargine,Hum.rec.anlog [Lantus Solostar] 10 unit SQ HS #0 Furosemide [Lasix] 20 mg PO DAILY #0 Discontinued Losartan-Hctz 100-25 mg Tab 100 mg PO DAILY Home Medications: Cholecalciferol (Vitamin D3) [Vitamin D3] 50,000 unit PO WD 06/10/15 [History] Warfarin [Coumadin] 2.5 mg PO DAILY 06/10/15 [History] Carvedilol [Coreg] 25 mg PO DAILY 01/03/16 [History] Hydrocodone/Acetaminophen [Hydrocodon-Acetaminophen 5-325] 1 each PO Q6H PRN 01/08/18 [History] Trazodone HCl 150 mg PO HS 03/01/18 [History] Simvastatin [Zocor] 20 mg PO HS 09/04/18 [History] Albuterol Sulfate [Proventil Inhaler] 2 puff IH [id number] PRN #1 inhaler 06/12/19 [Rx] Allopurinol [Zyloprim 300 MG] 300 mg PO DAILY #30 tablet 06/12/19 [Rx] Ascorbic Acid [Vitamin C] 500 mg PO DAILY@0630 #30 tablet 06/12/19 [Rx] Carvedilol [Coreg] 25 mg PO BIDWM #60 tablet 06/12/19 [Rx] DULoxetine [Cymbalta] 20 mg PO BID #60 06/12/19 [Rx] Doxazosin [Cardura] 4 mg PO HS #30 tablet 06/12/19 [Rx] Doxycycline 100 mg PO BID #14 capsule 06/12/19 [Rx] Ferrous Sulfate 325 mg PO DAILY@0630 #30 tablet 06/12/19 [Rx] Furosemide [Lasix] 20 mg PO DAILY #0 06/12/19 [Rx] Insulin Glargine,Hum.rec.anlog [Lantus Solostar] 10 unit SQ HS #0 06/12/19 [Rx] Tizanidine HCl 2 mg PO Q8H #21 tablet 06/12/19 [Rx] Allergies/Adverse Reactions: Allergy/AdvReac Type Severity Reaction Status Date / Time ciprofloxacin [From Cipro] Allergy Itching Verified 06/15/17 17:30 meloxicam Allergy See Verified 10/29/18 07:51 Comments clindamycin AdvReac Diarrhea Verified 12/07/17 22:03 colchicine AdvReac Diarrhea Verified 03/01/18 13:58 gabapentin AdvReac Confusion Verified 03/01/18 13:59 bee stings Allergy Swelling Uncoded 10/29/18 07:50 of Lip/Tongue/Throat Date of admission: 05/07/19 17:30 Primary care physician: Deepali Nguyen CNP Consults: 05/07/19 16:33 Consult to Occupational Therapy [CONS] Routine Comment: Evaluate, develop and implement POC Reason for Consult: Evaluate, develop and implement POC Does patient have active BEDREST order?: No Is patient medically & hemodynamically stable?: Yes Patient assessed for mobility or mobilized this visit?: No Consult to Physical Therapy [CONS] Routine Comment: Evaluate, develop and implement POC Reason for Consult: Evaluate, develop and implement POC Does patient have active BEDREST order?: No Is patient medically & hemodynamically stable?: Yes Patient assessed for mobility or mobilized this visit?: No 05/07/19 16:40 Consult to Speech Therapy [CONS] Routine Comment: Evaluate, develop and implement POC Reason for Consult: Evaluate, develop and implement POC Call Completed: No 05/07/19 17:56 Consult to Denture Waxer [CONS] Routine Reason for SW Consult: swing bed 05/11/19 17:19 Consult to PICC team [Consult to Invasive Line Access Team] [CONS] Routine Reason for Consult: Previous PICC line accidentally removed by patient. Line Type: PICC - Constitutional Vitals: Temp Pulse Resp BP Pulse Ox 97.6 F 54 22 143/66 96 06/12/19 06:58 06/12/19 06:58 06/12/19 06:58 06/12/19 06:58 06/12/19 06:58 - Patient Status Disposition: Home Health Service - Discharge Instructions Follow Up With: Deepali Nguyen CNP [Primary Care Provider] - 1 week - Diet and Activity Activity: as per physical therapy Diet: diabetic diet
--- NOTE | 2019-06-12 15:47 | Physician Discharge Referral ---
Home Health/Hosp Referral Info Transfer to: Home Health Attending Provider: [place] Provider in Charge Post Discharge: PCP (Deepali Nguyen CNP) - Diagnosis (1) MRSA bacteremia Priority: Primary Status: Acute (2) Back pain Priority: Secondary Status: Acute (3) CKD (chronic kidney disease) stage 3, GFR 30-59 ml/min Priority: Secondary Status: Chronic (4) Atrial fibrillation Priority: Secondary Status: Chronic (5) Hypertension Priority: Secondary Status: Chronic (6) DM type 2 (diabetes mellitus, type 2) Priority: Secondary Status: Chronic (7) Anemia Priority: Secondary Status: Acute (8) Gout Priority: Secondary Status: Acute - Respiratory Orders Smoking Cessation: Smoking cessation has been advised. For more information, call the [place] Tobacco Quit Line at 1-412-KGPY-NOW. - Diet/Nutrition Diet/Nutrition Orders: No Concentrated Sweets - Activity Activity Orders: Walker - Services Needed Following services are medically necessary services: Nursing, Home Health Aide, Physical Therapy, Occupational Therapy - Transfer Medications Prescriptions: Doxazosin [Cardura] 4 mg PO HS #30 tablet [id number] Carvedilol [Coreg] 25 mg PO BIDWM #60 tablet Transmission Status: [id number] DULoxetine [Cymbalta] 20 mg PO BID #60 Prescription Printed Doxycycline 100 mg PO BID #14 capsule Prescription Printed Ferrous Sulfate 325 mg PO DAILY@0630 #30 tablet Prescription Printed Albuterol Sulfate [Proventil Inhaler] 2 puff IH [id number] PRN #1 inhaler PRN Reason: Wheezing Transmission Status: [id number] Tizanidine HCl 2 mg PO Q8H #21 tablet Transmission Status: Pending to [id number] Ascorbic Acid [Vitamin C] 500 mg PO DAILY@0630 #30 tablet Prescription Printed Allopurinol [Zyloprim 300 MG] 300 mg PO DAILY #30 tablet Transmission Status: Pending to [id number] Home Medications: Cholecalciferol (Vitamin D3) [Vitamin D3] 50,000 unit PO WD 06/10/15 [History] Warfarin [Coumadin] 2.5 mg PO DAILY 06/10/15 [History] Carvedilol [Coreg] 25 mg PO DAILY 01/03/16 [History] Hydrocodone/Acetaminophen [Hydrocodon-Acetaminophen 5-325] 1 each PO Q6H PRN 01/08/18 [History] Trazodone HCl 150 mg PO HS 03/01/18 [History] Simvastatin [Zocor] 20 mg PO HS 09/04/18 [History] Albuterol Sulfate [Proventil Inhaler] 2 puff IH [id number] PRN #1 inhaler 06/12/19 [Rx] Allopurinol [Zyloprim 300 MG] 300 mg PO DAILY #30 tablet 06/12/19 [Rx] Ascorbic Acid [Vitamin C] 500 mg PO DAILY@0630 #30 tablet 06/12/19 [Rx] Carvedilol [Coreg] 25 mg PO BIDWM #60 tablet 06/12/19 [Rx] DULoxetine [Cymbalta] 20 mg PO BID #60 06/12/19 [Rx] Doxazosin [Cardura] 4 mg PO HS #30 tablet 06/12/19 [Rx] Doxycycline 100 mg PO BID #14 capsule 06/12/19 [Rx] Ferrous Sulfate 325 mg PO DAILY@0630 #30 tablet 06/12/19 [Rx] Furosemide [Lasix] 20 mg PO DAILY #0 06/12/19 [Rx] Insulin Glargine,Hum.rec.anlog [Lantus Solostar] 10 unit SQ HS #0 06/12/19 [Rx] Tizanidine HCl 2 mg PO Q8H #21 tablet 06/12/19 [Rx] Allergies/Adverse Reactions: Allergy/AdvReac Type Severity Reaction Status Date / Time ciprofloxacin [From Cipro] Allergy Itching Verified 06/15/17 17:30 meloxicam Allergy See Verified 10/29/18 07:51 Comments clindamycin AdvReac Diarrhea Verified 12/07/17 22:03 colchicine AdvReac Diarrhea Verified 03/01/18 13:58 gabapentin AdvReac Confusion Verified 03/01/18 13:59 bee stings Allergy Swelling Uncoded 10/29/18 07:50 of Lip/Tongue/Throat Certification: Further, I certify that my clinical findings support that this patient is homebound (i.e. absences from home require considerable and taxing effort and are for medical reasons or cheondoism services or infrequently or short duration when for other reasons) because: Homebound Reason: Leaving home requires considerable and taxing effort due to condition (Impaired walking ability secondary to foot and back surgery.) Attestation: My signature below is to certify that this patient is under my care and that I, or nurse practitioner, or a physician's tmd teacher assistant working with me, has a [id number] encounter with this patient.
== END 2019-06-12 16:55 | disposition home health service (06) | DRG 872 ==
LOC: INPPIK 17:30
PROVIDERS: ADMIT Internal Medicine; ATTEND Internal Medicine

== ENCOUNTER 2019-08-13 10:52 | Observation (INO) ==
[2019-08-13] MEDS ORDERED: 0.9 % Sodium Chloride 500 ML IVC ONE (11:29)
[2019-08-13 11:46] LABS: Basophils % 0.3 %; Eosinophils # 0.2 K/mcL (0.0-0.6); Eosinophils % 1.8 %; Hematocrit 30.9 % (37.5-50.1); Hemoglobin 10.1 g/dL (12.9-16.9); Immature Granulocytes % 0.2 % (0-4); Lymphocytes # 3.5 K/mcL (0.6-4.6); Lymphocytes % 36.6 %; Mean Corpuscular HGB Conc 32.7 g/dL (31.6-35.5); Mean Corpuscular Hemoglobin 31.5 pg (28.0-33.3); Mean Corpuscular Volume 96.3 fL (83.0-100.0); Mean Platelet Volume 10.9 fL (9.4-12.4); Monocytes # 0.7 K/mcL (0.0-1.3); Monocytes % 7.3 %; Neutrophils # 5.1 K/mcL (1.6-8.9); Platelet Count 203 K/mcL (140-400); Red Blood Count 3.21 M/mcL (4.19-5.50); Red Cell Distribution Width 17.5 % (11.5-14.5); Segmented Neutrophils % 53.8 %; White Blood Count 9.5 K/mcL (4.3-11.1)
[2019-08-13 11:55] LABS: INR 1.6; Prothrombin Time 18.6 Seconds (9.4-12.1)
[2019-08-13 12:02] LABS: Alanine Aminotransferase 11 Units/L (7-52); Albumin 2.9 g/dL (3.5-5.7); Albumin/Globulin Ratio 0.7 (1.1-2.2); Alkaline Phosphatase 58 Units/L (34-104); Aspartate Amino Transferase 13 Units/L (13-39); BUN/Creatinine Ratio 30 (6-26); Bilirubin,Total 0.5 mg/dL (0.3-1.0); Blood Urea Nitrogen 96 mg/dL (8-23); Carbon Dioxide 26 mEq/L (23-29); Chloride 105 mEq/L (98-107); Globulin 3.9 g/dL (2.4-3.5); Glucose 116 mg/dL (70-105); Osmolality,Calculated 317 (280-300); Potassium 4.7 mEq/L (3.5-5.1); Sodium 138 mEq/L (136-145); Total Protein 6.8 g/dL (6.4-8.9); eGFR For African Americans 23 (> 60); eGFR For Non-African Americans 19 (> 60)
[2019-08-13 12:05] LABS: Troponin I < 0.03 ng/mL (< 0.04)
[2019-08-13 12:45] LABS: Bilirubin,Urine Negative (Negative); Blood,Urine Small (Negative); Clarity,Urine Clear (Clear); Color,Urine Yellow (Yellow); Glucose,Urine (UA) Normal (Normal); Ketones,Urine Negative (Negative); Leukocyte Esterase,Urine Negative (Negative); Nitrite,Urine Negative (Negative); Protein,Urine Negative (Neg-Trace); Urobilinogen,Urine Normal (Normal)
[2019-08-13 12:52] LABS: Hyaline Casts,Urine Few per lpf (None-Few); RBC,Urine 0-3 per hpf (0-3); Squamous Epithelial Cell,Urine Few per lpf (None-Few)
[2019-08-13] MEDS ORDERED: *HR* HYDROcodone/Acet 5/325 mg TABLET PO ONE (13:28)
[2019-08-13] MEDS ORDERED: 0.9 % Sodium Chloride 1,000 ML IVC SCH (13:30)
[2019-08-13] MEDS ORDERED: Naloxone 0.4 MG/ML INJ IVP PRN ×2 (14:19→15:53)
[2019-08-13] MEDS ORDERED: D5% in Water 1,000 ML IVC PRN ×2 (14:23→15:53)
[2019-08-13] MEDS ORDERED: *HR* Dextrose 50 % in Water (Syg) 50 ML SYRINGE IVP PRN (14:23)
[2019-08-13] MEDS ORDERED: Dextrose Gel 15 GM/37.5 ML TUBE PO PRN ×4 (14:23→15:53)
[2019-08-13] MEDS ORDERED: *HR* Dextrose 50 % in Water (Vial) 50 ML VIAL IVP PRN (15:53)
[2019-08-13] MEDS ORDERED: Insulin LISPRO 300 UNITS/3 ML VIAL SQ SCH ×3 (16:30→21:00)
[2019-08-13] MEDS: Insulin LISPRO 300 UNITS/3 ML VIAL SQ SCH (16:38)
[2019-08-13] MEDS: carvediloL 25 MG TABLET PO SCH (17:05)
[2019-08-13] MEDS: tiZANidine 4 MG TABLET PO SCH ×2 (17:06→21:40)
[2019-08-13] MEDS: 0.9 % Sodium Chloride 1,000 ML IVC SCH ×2 (17:10→21:36)
[2019-08-13] MEDS ORDERED: traZODone 50 MG TABLET PO SCH (21:00)
[2019-08-13] MEDS ORDERED: Insulin DETEMIR 100 UNIT/ML X5UNITS SQ SCH (21:00)
[2019-08-13] MEDS: *HR* HYDROcodone/Acet 5/325 mg TABLET PO PRN (21:38)
[2019-08-13] MEDS: Doxycycline 100 MG CAPSULE PO SCH (21:38)
[2019-08-14] MEDS: 0.9 % Sodium Chloride 1,000 ML IVC SCH (05:32)
[2019-08-14 06:50] LABS: INR 1.8
[2019-08-14 07:00] LABS: Calcium 8.6 mg/dL (8.6-10.3); Potassium 4.5 mEq/L (3.5-5.1)
[2019-08-14 07:02] VITALS: BP 136/85
[2019-08-14] MEDS: carvediloL 25 MG TABLET PO SCH (08:00)
[2019-08-14] MEDS: tiZANidine 4 MG TABLET PO SCH (08:01)
[2019-08-14] MEDS: Doxycycline 100 MG CAPSULE PO SCH (08:01)
[2019-08-14] MEDS: Insulin LISPRO 300 UNITS/3 ML VIAL SQ SCH (08:01)
[2019-08-14] MEDS: *HR* HYDROcodone/Acet 5/325 mg TABLET PO PRN (08:01)
[2019-08-14] MEDS ORDERED: Cholecalciferol (D-3) 1,000 UNIT (25MCG) TABLET PO SCH (09:00)
[2019-08-14] MEDS ORDERED: *HR* Warfarin 2.5 MG TABLET PO SCH (18:00)
[2019-08-16] MEDS ORDERED: *HR* Warfarin 5 MG TABLET PO SCH (18:00)
== END 2019-08-14 08:32 | disposition home or self-care (01) ==
LOC: EMEROOPIK 10:52 → INPPIK 10:52
PROVIDERS: ADMIT Emergency Medicine; ATTEND Emergency Medicine

== ENCOUNTER 2021-04-16 20:21 | Inpatient (IN) ==
[2021-04-16] MEDS ORDERED: Ondansetron ODT 4 MG TAB.RAPDIS PO PRN (21:24)
[2021-04-16] MEDS ORDERED: *HR* Warfarin 5 MG TABLET PO SCH (21:30)
[2021-04-16] MEDS: *HR* HYDROcodone/Acet 10/325 mg TABLET PO PRN (23:19)
[2021-04-17 07:27] LABS: Basophils % 0.1 %; Eosinophils # 0.2 K/mcL (0.0-0.6); Eosinophils % 2.7 %; Hematocrit 27.5 % (37.5-50.1); Hemoglobin 8.5 g/dL (12.9-16.9); Immature Granulocytes % 0.8 % (0-4); Lymphocytes # 2.1 K/mcL (0.6-4.6); Lymphocytes % 26.7 %; Mean Corpuscular HGB Conc 30.9 g/dL (31.6-35.5); Mean Corpuscular Hemoglobin 31.7 pg (28.0-33.3); Mean Corpuscular Volume 102.6 fL (83.0-100.0); Mean Platelet Volume 11.2 fL (9.4-12.4); Monocytes # 0.6 K/mcL (0.0-1.3); Monocytes % 7.8 %; Neutrophils # 4.8 K/mcL (1.6-8.9); Nucleated Red Blood Cells 0.3 /100 WBC (0); Platelet Count 163 K/mcL (140-400); Red Blood Count 2.68 M/mcL (4.19-5.50); Red Cell Distribution Width 15.4 % (11.5-14.5); Segmented Neutrophils % 61.9 %; White Blood Count 7.8 K/mcL (4.3-11.1)
[2021-04-17 07:34] LABS: INR 2.1; Prothrombin Time 24.2 Seconds (9.4-12.1)
[2021-04-17 07:54] LABS: Calcium 8.7 mg/dL (8.6-10.3)
[2021-04-17] MEDS: *HR* HYDROcodone/Acet 10/325 mg TABLET PO PRN ×2 (09:09→23:48)
[2021-04-17] MEDS: tiZANidine 4 MG TABLET PO SCH ×2 (09:09→19:53)
[2021-04-17] MEDS: *HR* Pioglitazone 15 MG TABLET PO SCH (09:09)
[2021-04-17] MEDS: Furosemide 40 MG TABLET PO SCH ×2 (09:10→19:49)
[2021-04-17] MEDS: carvediloL 25 MG TABLET PO SCH ×2 (09:10→17:10)
[2021-04-17] MEDS: Vitamin E 200 UNIT (90MG) CAPSULE PO SCH (09:10)
[2021-04-17] MEDS: Cholecalciferol (D-3) 1,000 UNIT (25MCG) TABLET PO SCH (09:10)
[2021-04-17] MEDS: allopurinoL 300 MG TABLET PO SCH (09:10)
[2021-04-17] MEDS: Calcium Acetate 667 MG CAPSULE PO SCH ×3 (09:10→17:10)
[2021-04-17] MEDS ORDERED: Dextrose Gel 15 GM/37.5 ML TUBE PO PRN ×2 (13:44)
[2021-04-17] MEDS ORDERED: D5% in Water 1,000 ML IVC PRN (13:44)
[2021-04-17] MEDS ORDERED: *HR* Dextrose 50 % in Water (Vial) 50 ML VIAL IVP PRN (13:44)
[2021-04-17] MEDS: *HR* HYDROcodone/Acet 5/325 mg TABLET PO PRN (15:10)
[2021-04-17] MEDS: Insulin LISPRO 300 UNITS/3 ML VIAL SUBQ SCH ×2 (17:11→23:55)
[2021-04-17] MEDS ORDERED: Warfarin perPT PO PRN (18:00)
[2021-04-17] MEDS ORDERED: *HR* Warfarin 2.5 MG TABLET PO ONE (18:00)
[2021-04-17] MEDS ORDERED: polyethylene glycoL 3350 17 GM POWD.PACK PO PRN (18:11)
[2021-04-18] MEDS: Melatonin 3 MG TABLET PO PRN ×2 (01:05→19:45)
[2021-04-18 08:28] LABS: INR 2.2; Prothrombin Time 25.4 Seconds (9.4-12.1)
[2021-04-18] MEDS: Insulin LISPRO 300 UNITS/3 ML VIAL SUBQ SCH ×4 (10:20→20:06)
[2021-04-18] MEDS: tiZANidine 4 MG TABLET PO SCH ×2 (10:22→19:45)
[2021-04-18] MEDS: Vitamin E 200 UNIT (90MG) CAPSULE PO SCH (10:22)
[2021-04-18] MEDS: Calcium Acetate 667 MG CAPSULE PO SCH ×3 (10:23→18:15)
[2021-04-18] MEDS: Cholecalciferol (D-3) 1,000 UNIT (25MCG) TABLET PO SCH (10:23)
[2021-04-18] MEDS: Furosemide 40 MG TABLET PO SCH ×2 (10:23→19:45)
[2021-04-18] MEDS: carvediloL 25 MG TABLET PO SCH ×2 (10:23→18:15)
[2021-04-18] MEDS: allopurinoL 300 MG TABLET PO SCH (10:23)
[2021-04-18] MEDS: *HR* HYDROcodone/Acet 5/325 mg TABLET PO PRN (10:23)
[2021-04-18] MEDS: *HR* Pioglitazone 15 MG TABLET PO SCH (10:23)
[2021-04-18] MEDS ORDERED: *HR* Warfarin 2.5 MG TABLET PO ONE (18:00)
[2021-04-18] MEDS: *HR* HYDROcodone/Acet 10/325 mg TABLET PO PRN (18:15)
[2021-04-19 07:19] LABS: INR 2.4; Prothrombin Time 27.4 Seconds (9.4-12.1)
[2021-04-19] MEDS: Insulin LISPRO 300 UNITS/3 ML VIAL SUBQ SCH ×4 (10:29→20:39)
[2021-04-19] MEDS: Calcium Acetate 667 MG CAPSULE PO SCH ×3 (10:31→17:25)
[2021-04-19] MEDS: Cholecalciferol (D-3) 1,000 UNIT (25MCG) TABLET PO SCH (10:31)
[2021-04-19] MEDS: *HR* HYDROcodone/Acet 5/325 mg TABLET PO PRN ×2 (10:31→20:39)
[2021-04-19] MEDS: tiZANidine 4 MG TABLET PO SCH ×2 (10:31→20:38)
[2021-04-19] MEDS: Vitamin E 200 UNIT (90MG) CAPSULE PO SCH (10:31)
[2021-04-19] MEDS: allopurinoL 300 MG TABLET PO SCH (10:31)
[2021-04-19] MEDS: carvediloL 25 MG TABLET PO SCH ×2 (10:32→17:25)
[2021-04-19] MEDS: Furosemide 40 MG TABLET PO SCH ×2 (10:32→20:39)
[2021-04-19] MEDS: *HR* Pioglitazone 15 MG TABLET PO SCH (10:32)
[2021-04-19] MEDS: *HR* HYDROcodone/Acet 10/325 mg TABLET PO PRN (15:34)
[2021-04-19] MEDS ORDERED: *HR* Warfarin 2.5 MG TABLET PO ONE (18:00)
[2021-04-19] MEDS: Melatonin 3 MG TABLET PO PRN (20:39)
[2021-04-20 07:31] LABS: Hematocrit 25.9 % (37.5-50.1); Hemoglobin 8.3 g/dL (12.9-16.9); Mean Corpuscular Hemoglobin 32.5 pg (28.0-33.3); Mean Corpuscular Volume 101.6 fL (83.0-100.0); Mean Platelet Volume 11.4 fL (9.4-12.4); Platelet Count 182 K/mcL (140-400); Red Blood Count 2.55 M/mcL (4.19-5.50); Red Cell Distribution Width 15.9 % (11.5-14.5); White Blood Count 7.7 K/mcL (4.3-11.1)
[2021-04-20 07:45] LABS: INR 2.5; Prothrombin Time 27.7 Seconds (9.4-12.1)
[2021-04-20] MEDS: allopurinoL 300 MG TABLET PO SCH (07:49)
[2021-04-20] MEDS: Vitamin E 200 UNIT (90MG) CAPSULE PO SCH (07:49)
[2021-04-20] MEDS: Calcium Acetate 667 MG CAPSULE PO SCH ×3 (07:49→17:02)
[2021-04-20] MEDS: carvediloL 25 MG TABLET PO SCH ×2 (07:50→17:02)
[2021-04-20] MEDS: Furosemide 40 MG TABLET PO SCH ×2 (07:50→20:28)
[2021-04-20] MEDS: Cholecalciferol (D-3) 1,000 UNIT (25MCG) TABLET PO SCH (07:50)
[2021-04-20] MEDS: tiZANidine 4 MG TABLET PO SCH ×2 (07:50→20:28)
[2021-04-20] MEDS: *HR* Pioglitazone 15 MG TABLET PO SCH (07:50)
[2021-04-20 07:53] LABS: Calcium 8.6 mg/dL (8.6-10.3); Potassium 4.4 mEq/L (3.5-5.1)
[2021-04-20] MEDS: Insulin LISPRO 300 UNITS/3 ML VIAL SUBQ SCH ×4 (07:54→20:30)
[2021-04-20] MEDS: *HR* HYDROcodone/Acet 5/325 mg TABLET PO PRN ×2 (09:05→15:07)
[2021-04-20] MEDS: *HR* HYDROcodone/Acet 10/325 mg TABLET PO PRN (11:46)
[2021-04-20] MEDS: Melatonin 3 MG TABLET PO PRN (22:20)
[2021-04-21] MEDS: *HR* HYDROcodone/Acet 10/325 mg TABLET PO PRN (05:01)
[2021-04-21 07:42] LABS: INR 2.5; Prothrombin Time 27.8 Seconds (9.4-12.1)
[2021-04-21] MEDS: Furosemide 40 MG TABLET PO SCH ×2 (09:20→21:19)
[2021-04-21] MEDS: Calcium Acetate 667 MG CAPSULE PO SCH ×3 (09:20→16:45)
[2021-04-21] MEDS: allopurinoL 300 MG TABLET PO SCH (09:21)
[2021-04-21] MEDS: carvediloL 25 MG TABLET PO SCH ×2 (09:21→16:46)
[2021-04-21] MEDS: *HR* Pioglitazone 15 MG TABLET PO SCH (09:21)
[2021-04-21] MEDS: *HR* HYDROcodone/Acet 5/325 mg TABLET PO PRN ×2 (09:21→17:02)
[2021-04-21] MEDS: tiZANidine 4 MG TABLET PO SCH ×2 (09:21→21:19)
[2021-04-21] MEDS: Cholecalciferol (D-3) 1,000 UNIT (25MCG) TABLET PO SCH (09:21)
[2021-04-21] MEDS: Vitamin E 200 UNIT (90MG) CAPSULE PO SCH (09:21)
[2021-04-21] MEDS: Insulin LISPRO 300 UNITS/3 ML VIAL SUBQ SCH ×4 (09:22→21:20)
[2021-04-21] MEDS ORDERED: *HR* Warfarin 2.5 MG TABLET PO ONE (18:00)
[2021-04-22 07:19] VITALS: BP 110/62; PULSE 62; RESP 18; TEMP 98.1; O2SAT 96
[2021-04-22] MEDS: Insulin LISPRO 300 UNITS/3 ML VIAL SUBQ SCH (07:26)
[2021-04-22] MEDS: *HR* Pioglitazone 15 MG TABLET PO SCH (07:33)
[2021-04-22] MEDS: Vitamin E 200 UNIT (90MG) CAPSULE PO SCH (07:33)
[2021-04-22] MEDS: Cholecalciferol (D-3) 1,000 UNIT (25MCG) TABLET PO SCH (07:34)
[2021-04-22] MEDS: carvediloL 25 MG TABLET PO SCH (07:34)
[2021-04-22] MEDS: Furosemide 40 MG TABLET PO SCH (07:34)
[2021-04-22] MEDS: Calcium Acetate 667 MG CAPSULE PO SCH ×2 (07:34→11:37)
[2021-04-22] MEDS: tiZANidine 4 MG TABLET PO SCH (07:34)
[2021-04-22] MEDS: allopurinoL 300 MG TABLET PO SCH (07:34)
[2021-04-22] MEDS: *HR* HYDROcodone/Acet 5/325 mg TABLET PO PRN (07:34)
[2021-04-22 08:26] LABS: INR 2.1; Prothrombin Time 23.7 Seconds (9.4-12.1)
[2021-04-22] MEDS: *HR* HYDROcodone/Acet 10/325 mg TABLET PO PRN (11:37)
[2021-04-22] MEDS ORDERED: *HR* Warfarin 2.5 MG TABLET PO ONE (18:00)
== END 2021-04-22 12:03 | disposition home health service (06) | DRG 560 ==
LOC: INPPIK 21:32
PROVIDERS: ADMIT Family Medicine; ATTEND Family Medicine